=== PATIENT | male | born 1955 | race Caucasian/White ===

== ENCOUNTER 2024-02-09 19:39 | Outpatient (OUT) | payer MEDICARE, SELFPAY | END 2024-02-09 19:40 | disposition home or self-care (01) | LOC: SLEEP 19:39 | PROVIDERS: PCP Psychiatry & Neurology Neurology; Visit Provider Psychiatry & Neurology Neurology | DX: G47.33 Obstructive sleep apnea (adult) (pediatric) (principal) ==

== ENCOUNTER 2024-02-10 15:00 | Outpatient (OUT) | payer MEDICARE, OTHER, SELFPAY ==
--- OUTSIDE RECORDS SUMMARY | 2024-02-11 14:12 | XMS_ITS | CCD ---
Author Organization [facility] Care Team Providers Care Custom Dressmaker Name Role Phone APLING, ERMA Unavailable Unavailable APLING, ERMA Unavailable Unavailable ANGIE MORAN Unavailable Unavailable UNKNOWN, PROVIDER Unavailable Unavailable ANGIE MORAN Unavailable Unavailable UNKNOWN, PROVIDER Unavailable Unavailable ANGIE MORAN Unavailable Unavailable Angie Moran Unavailable Unavailable Unavailable Angie Moran Unavailable Carissa Angeles Unavailable Juan Pina Unavailable MD Angie Moran Primary Care Provider [phone] MD Angie Moran Attending Provider MD Juan Pina Attending Provider [phone] MD Anish Garcia Attending Provider Karthik Shen Ferrer Attending Provider [phone] Kaylynn Lehman Unavailable MD Angie Moran Primary Care Provider TRIPP Lehman Attending Provider MD Angie Moran Primary Care Provider [phone] TRIPP Maharaj Attending Provider TRIPP Lehman Attending Provider MD Angie Moran Primary Care Provider MD Angie Moran Attending Provider [phone] Angie Moran MD Primary Care Provide r BIANKA DAMON Attending Unavailable BIANKA DAMON Referring Unavailable Dr. Angie Moran Primary Care Lacie vailable THAIS, NAIM Attending Unavailable THAIS, NAIM Referring Unavailable Dr. Angie Moran Primary Care Lacie vailable ILENE ROBLES Attending Unavailable ILENE ROBLES Referring Unavailable Dr. Angie Moran Primary Care Lacie vailable THAIS, BIANKA Attending Unavailable THAIS, NAIM Referring Unavailable Dr. Angie Moran Primary Care Lacie vailable Dean TODD, Angie [facility] Provide r Unavailable Anne Cowan Unavailable Angie Moran MD Primary Care Provider Bianka Damon MD Unavailable ANGIE MORAN Primary Care Unavailable Angie Moran MD Primary Care Provider Un available Ilene Robles MD Unavailable BIANKA DAMON Attending Unavailable ANGIE MORAN Primary Care Unavailable THAIS NAHANNA Earl Attending Unavailable ANGIE MORAN Primary Care Unavailable ILENE ROBLES Attending Unavailable ANGIE MORAN Primary Care Unavailable MD Angie Moran Primary Care Provider MD Ken Rocha II Attending Provider [phone] MD Angie Moran Primary Care Provider MD Angie Moran Attending Provider Angie Moran Attending Unavailable Angie Moran Primary Care Unavailable Angie Moran Admitting Unavailable Ken Rocha II Attending UnavailKen Javed II Admitting UnavailAngie Duque Primary Care Unavailable Angie Moran Primary Care Unavailable Angie Moran Admitting Unavailable Angie Moran Attending Unavailable MELITA ELLIOTT Attending Unavailable Medications Current Medications Medication Drug Class(es) Dates Sig (Normalized) Sig (Original) 0.25 MG, 0.5 MG Dose 3 ML semaglutide 0.68 MG/ML Pen Injector [Ozempic] (1 source) Start: 03-23-2023 Ozempic (0.25 or 0.5 MG/DOSE) 2 MG/3ML 0.25 MG Subcutaneous WEEKLY for 30 Mar, Active [id number] 200 actuat albuterol 0.09 mg/actuat metered dose inhaler (20 sources) beta2-Adrenergic Agonist Start: 08-27-2023 take 2 puff(s) by inhalation every four hours as needed Albuterol Sulfate (Ventolin Hfa) 90 mcg/actuation HFA aerosol inhaler Active INHALATION August 27, 2023 12:00am FreeTextSig: INHALE 2 PUFFS EVERY 4 HOURS NEEDED; Note: Source Status: Taking; Refills: 11; Provider: Dean Crenshaw take 1-2 puff(s) by inhalation every six hours albuterol 90 mcg/actuation inhaler Inhal e 1-2 puffs every 6 hours if needed. Active take 2 puff(s) by in halation every four hours as needed Ventolin HFA 108 (90 Base) MCG/ACT INHAL E 2 PUFFS EVERY 4 HOURS NEEDED for 30 days Active take 1-2 puff(s) by inhalation every four to six hours as needed Albuterol Sulfate HFA 108 (90 Base) MCG/ ACT Inhalation Aerosol Solution INHALE 1 TO 2 PUFFS EVERY 4 TO 6 HOURS NEEDED. Quantity: 0 Refills: 0 Ordered: 27-Feb-2021 DO Active take 2 puff(s) by mo ut every four hours as needed Albuterol Sulfate HFA 108 (90 Base) MCG/ ACT INHALE 2 PUFFS BY MOUTH EVERY 4 HOURS NEEDED Active take 2 puff(s) by mo uth every four hours as needed Albuterol Sulfate HFA 108 (90 Base) MCG/ ACT INHALE 2 PUFFS BY MOUTH EVERY 4 HOURS NEEDED Active take 1-2 puff(s) by inhalation every four to six hours as needed Albuterol Sulfate HFA 108 (90 Base) MCG/ ACT Inhalation Aerosol Solution INHALE 1 TO 2 PUFFS EVERY 4 TO 6 HOURS NEEDED. Quantity: 0 Refills: 0 Ordered: 27-Feb-2021 DO Active amiodarone hydrochloride 100 mg oral tablet (20 sources) Antiarrhythmic take 1 tablet by ree th every twenty-four hours Amiodarone HCl 100 MG 1 tablet Orally Once a day Active take 1 tablet by ree th every twenty-four hours Amiodarone HCl 200 MG 1 tablet Orally Once a day Active amLODIPine 5 mg oral tablet (20 sources) Dihydropyridine Calcium Channel Patti Start: 12-10-2023 take 5 mg by mouth once daily Amlodipine Active 5 MG PO Daily December 10, 2023 12:00am Start: 09-19-2022 End: 08-27-2023 take 5 mg by mouth once daily Amlodipine Discontinued 5 MG PO Daily June 25, 2023 1:00am August 27, 2023 1:49pm B Complex (1 source) B Complex Active Calcium + D3 600-800 MG-UNIT (20 sources) take 600-800 tablets by mouth once daily Calcium + D3 600-800 MG-UNIT 1 tablet with a meal Orally Once a day Active Cerefolin NAC 6-90.314-2-600 MG (9 sources) take 1 tablet by mouth once daily Cerefolin NAC 6-90.314-2-600 MG 1 tablet Orally Once a day 90 mg Active ciprofloxacin 500 mg oral tablet (5 sources) Quinolone Antimicrobial Start: 02-11-20 take 1 tablet by mouth every twelve hours Ciprofloxacin HCl 500 MG 1 tablet Orally every 12 hrs for 10 day(s) Jan, Active clotrimazole 10 mg/ml topical cream (20 sources) Azole Antifungal Clotrimazole 1 % APPLY TO AFFECTED AREA TWICE DAILY for 28 Active Clotrimazole 1 % 1 application to affected area Externally Twice a day for 28 days Active Clotrimazole 1 % 1 application to affected area Externally Twice a day for 28 Active CPAP Machine (20 sources) CPAP Machine Act kristina CPAP Mask and supplies (19 sources) Start: 01-14-20 CPAP Mask and supplies Dec, Active diclofenac sodium 0.01 mg/mg topical gel (5 sources) Nonsteroidal Anti-inflammatory Drug Start: 08-27-19 Diclofenac Sodium Active 2 GM TOPICAL .4-5 times a day 05 19August 27, 2023 12:00am esomeprazole 40 mg delayed release oral capsule (20 sources) Proton Pump Inhibitor Start: 08-10-19 take 1 capsule by mouth once daily Esomeprazole Magnesium (Nexium) 40 mg Capsule,Delayed Release(Dr/Ec) Active 40 MG PO Daily August 09, 2017 12:00am ezetimibe 10 mg / simvastatin 20 mg oral tablet (20 sources) HMG-CoA Reductase Inhibitor, Dietary Cholesterol Absorption Inhibitor Start: 11-09-19 take 1 tablet by mouth once daily ezetimibe-simvastati n (Vytorin) 10-20 mg tablet Take 1 tablet by mouth once daily. 11/08/2021 Active Start: 08-09-2017 take 1 tablet by ree th once daily Ezetimibe-Simvastatin (Vytorin 10-80) 10-80 mg Tablet Active 1 TAB PO Daily August 09, 2017 12:00am Vytorin 10/80 TA KE 1 TABLET DAILY Active Fish Oils (20 sources) take 1 capsule by mouth once daily Fish Oil 1000 MG 1 capsule Orally Once a day Active hydroCHLOROthiazide 25 mg oral tablet (20 sources) Thiazide Diuretic Start: 2019 End: 2023 take 25 mg by mouth once daily Hydrochlorothiazide Active 25 MG PO Daily 90 90 December 10, 2023 2:59pm 24 hr isosorbide mononitrate 60 mg extended release oral tablet (20 sources) Nitrate Vasodilator Start: 2023 take 1 tablet by mouth once daily isosorbide mononitrate ER (Imdur) 60 mg 24 hr tablet Indications: Primary hypertension Take 1 tablet (60 mg) by mouth once daily. 90 tablet 3 08/14/2023 Active Start: 08-09-2017 End: 08-14-2023 take 60 mg by mouth once daily Isosorbide Mononitrate Active 60 MG PO Daily August 09, 2017 12:00am levothyroxine sodium 0.112 mg oral tablet (20 sources) l-Thyroxine Start: 08-27-2023 take 1 tablet by mouth once daily in the morning Levothyroxine Active MCG PO August 27, 2023 12:00am FreeTextSig: TAKE 1 TABLET BY MOUTH EVERY DAY IN THE MORNING ON EMPTY STOMACH; Note: Source Status: Taking; Provider: Dean Stallworth ( ) Start: 07-15-2021 take 1 tablet by ree th once daily in the morning Levothyroxine Sodium 112 MCG 1 tablet in the morning on an empty stomach Orally Once a day for 30 day(s) Jun, Active Start: 06-07-2021 Levothyroxine Sodium 100 MCG 1 tablet every morning on an empty stomach Orally Once a day for 90 days May, Active Start: 01-24-2021 take 1 tablet by ree th once daily in the morning Levothyroxine Sodium 75 MCG 1 tablet in the morning on an empty stomach Orally Once a day Jan, Active Start: 08-10-2020 take 1 tablet by ree th once daily in the morning Synthroid 50 MCG 1 tablet in the morning on an empty stomach Orally Once a day Jul, Not-Taking take 1 tablet by ree th once daily levothyroxine (Synthroid, Levoxyl) 112 mcg tablet Take 1 tablet (112 mcg) by mouth once daily. Active take 1 tablet by ree th once daily Levothyroxine Sodium 75 MCG Oral Tablet TAKE 1 TABLET DAILY. Quantity: 0 Refills: 0 Ordered: 01-Mar-2021 DO Active lisinopril 20 mg oral tablet (20 sources) Angiotensin Converting Enzyme Inhibitor Start: 08-27-2023 End: 12-10-2023 take 1 tablet by mouth once daily Lisinopril Active 20 MG PO Daily 90 90 December 10, 2023 2:58pm FreeTextSi tablet Orally Once a day; Note: Source Status: Taking; Provider: dr. mix Start: 09-02-2022 take 1 tablet by ree th once daily Lisinopril 20 MG Oral Tablet TAKE 1 TABLET DAILY. Quantity: 90 Refills: 3 Ordered: 09-Dec-2022 Bianka Damon MD Start : 02-Sep-2022 Active Increased to 20mg, patient will use up his 10mg tablets first Start: 09-02-2022 take 1 tablet by ree th once daily Lisinopril 10 MG Oral Tablet TAKE 1 TABLET DAILY. Quantity: 90 Refills: 3 Ordered: 19-Sep-2022 Bianka Damon MD Start : 02-Sep-2022 Active Will continue this script Lmefol [id number] (Cerefolin Nac (Algal Oil)) 6 mg-600 mg- 2 mg-90.314 mg tablet (5 sources) Start: 08-27-2023 Lmefol [id number]-Algal (Cerefolin Nac (Algal Oil)) 6 mg-600 mg- 2 mg-90.314 mg tablet Active TAB PO August 27, 2023 12:00am Magnesium (9 sources) take 1 tablet by mouth twice daily Magnesium 400 MG 1 tab(s) Orally Twice a day Active magnesium oxide 400 mg oral tablet (20 sources) Start: 08-27-2023 take 1 tablet by mouth twice daily Magnesium Oxide Active 400 MG PO Twice daily August 27, 2023 12:00am FreeTextSi tab(s) Orally Twice a day; Note: Source Status: Taking; Provider: Dean Stallworth ( ) take 1 tablet by mouth twice kylie ly magnesium oxide (Mag-Ox) 400 mg (241.3 mg magnesium) tablet Take 1 tablet (400 mg) by mouth 2 times a day. Active take 1 tablet by mouth twice kylie ly Magnesium Oxide -Mg Supplement 400 (240 Mg) MG Oral Tablet Take 1 tablet twice daily Quantity: 180 Refills: 3 Ordered: 08-Aug-2022 Ilene Robles MD Active Increased to BID dosing. Discontinuing Amiodarone please take 1 tablet by mouth once blade y Magnesium Oxide 400 (240 Mg) MG Oral Tablet Take 1 tablet daily Quantity: 0 Refills: 0 Ordered: 27-Feb-2021 DO Active meloxicam 15 mg oral tablet (8 sources) Nonsteroidal Anti-inflammatory Drug Start: 11-23-2023 take 1 tablet by mouth once daily Meloxicam Active 0 .ROUTE .COMPLEX November 23, 2023 8:54am TAKE 1 TABLET BY MOUTH EVERY DAY Start: 08-27-2023 End: 11-23-2023 take 15 mg by mouth once daily Meloxicam Discontinued 15 MG PO daily August 27, 2023 12:00am November 23, 2023 8:55am 24 hr metoprolol succinate 25 mg extended release oral tablet (20 sources) beta-Adrenergic Patti Start: 09-18-2023 take 25 mg by mouth at bedtime Metoprolol Succinate Active 25 MG PO Bedtime 90 90 September 18, 2023 10:06am Start: 08-14-2023 take 1 tablet by ree th once daily at bedtime metoprolol succinate XL (Toprol-XL) 25 mg 24 hr tablet Indications: Longstanding persistent atrial fibrillation (Multi) Take 1 tablet (25 mg) by mouth once daily at bedtime. 90 tablet 3 08/14/2023 Active Start: 10-18-2021 End: 09-18-2023 take 25 mg by mouth at bedtime Metoprolol Succinate Di scontinued 25 MG PO Bedtime January 07, 2022 12:00am September 18, 2023 10:06am Start: 10-18-2021 take 25 mg by mouth at bedtime Metoprolol Succinate Active 25 MG PO Bedtime January 06, 2022 11:00pm nitroglycerin 0.4 mg sublingual tablet (20 sources) Nitrate Vasodilator Start: 08-09-2017 End: 12-10-2023 Nitroglycerin (Nitrostat) 0.4 mg tablet, sublingual Active 0.4 MG SUBLINGUAL As Directed December 10, 2023 2:59pm Nitroglycerin 0. 4 MG 1 tablet under the tongue every 5 minutes, up to 3 doses, if not better call 911 Sublingual PRN Active [place] 5-Jpt-Gpe-Fish Oil (Fish Oil) 1,000 mg (120 mg-180 mg) Capsule (15 sources) Start: 08-09-2017 take 1 capsule by mouth once daily [place] 5-Ojl-Huf-Fish Oil (Fish Oil) 1,000 mg (120 mg-180 mg) Capsule Active 1000 MG PO Daily August 08, 2017 11:00pm Start: 08-09-2017 take 1 capsule by [facility] once daily [place] 6-Xri-Hfu-Fish Oil (Fish Oil) 1,000 mg (120 mg-180 mg) Capsule Active 1000 MG PO Daily August 09, 2017 12:00am omega-3 fatty acids-fish oil (Fish OiL) 340-1,000 mg capsule (4 sources) take 1 capsule by [facility] once daily omega-3 fatty acids-fish oil (Fish OiL) 340-1,000 mg capsule Take 1 capsule by mouth once daily. Active take 1 capsule by mouth once kylie ly omega-3 fatty acids-fish oil (Fish OiL) 340-1,000 mg capsule Take 1 capsule by mouth once daily. 0 Active ozempic (0.25 or 0.5 mg/dose) 2 mg/3ml solution pen-injector (1 source) Start: 03-23-2023 Ozempic (0.25 or 0.5 MG/DOSE) 2 MG/3ML 0.25 MG Subcutaneous WEEKLY for Mar, Active rivaroxaban 20 mg oral tablet (20 sources) Factor Xa Inhibitor Start: 12-10-2023 take 1 tablet by mouth once daily Rivaroxaban (Xarelto) 20 mg tablet Active 20 MG PO Daily December 10, 2023 2:58pm Start: 08-14-2023 take 1 tablet by ree th once daily rivaroxaban (Xarelto) 20 mg tablet Indications: Longstanding persistent atrial fibrillation (Multi) Take 1 tablet (20 mg) by mouth once daily. 90 tablet 3 08/14/2023 Active Start: 12-31-2017 End: 12-10-2023 take 1 tablet by mouth once daily Rivaroxaban (Xarelto) 20 mg Tablet Discontinued 20 MG PO Daily December 31, 2017 12:00am December 10, 2023 2:59pm sulfamethoxazole 800 mg / trimethoprim 160 mg oral tablet (10 sources) Dihydrofolate Reductase Inhibitor Antibacterial, Sulfonamide Antimicrobial Start: 01-10-2022 take 1 tablet by mouth every twelve hours Sulfamethoxazole-Trimethoprim 800-160 MG 1 tablet Orally Twice a day for 7 day(s) Dec, Active Vitamin C 1000 MG (20 sources) take 1 tablet by mouth once daily Vitamin C 1000 MG 1 tablet Orally Once a day Active Vitamin D 95397 (20 sources) Start: 07-23-2009 Vitamin D 98665 1 capsule Orally Once a week patient is out Jul, Active Completed/Discontinued Medications Medication Drug Class(es) Dates Sig (Normalized) Sig (Original) amLODIPine 10 mg / benazepril hydrochloride 20 mg oral capsule (20 sources) Dihydropyridine Calcium Channel Patti, Angiotensin Converting Enzyme Inhibitor Start: 08-09-2017 End: 12-10-2023 take 1 tablet by mouth once daily Amlodipine-Benaze pril (Lotrel) 10-20 mg Capsule Discontinued 1 TAB PO Daily August 09, 2017 12:00am December 10, 2023 2:49pm ascorbic acid 1000 mg extended release oral tablet (20 sources) Vitamin C Start: 01-01-2018 End: 11-07-2019 take 1 tablet by mouth once daily Ascorbic Acid (Vitamin C) (Vitamin C) 1,000 mg Tablet Extended Release Discontinued 1 TAB PO Daily January 01, 2018 12:00am November 07, 2019 1:59pm take 1 tablet by ree th every twenty-four hours Vitamin C 1000 MG 1 tablet Orally Once a day Active aspirin 81 mg chewable tablet (20 sources) Platelet Aggregation Inhibitor, Nonsteroidal Anti-inflammatory Drug Start: 11-07-2019 End: 08-27-2023 take 1 tablet by mouth two times weekly Aspirin (Aspirin Childrens) 81 mg Tablet,Chewable Discontinued 81 MG PO Twice a Week November 07, 2019 12:00am August 27, 2023 1:47pm Start: 08-09-2017 End: 01-01-2018 take 81 mg by mouth once daily Aspirin Discontinued 81 MG PO Daily August 09, 2017 12:00am January 01, 2018 8:17am calcium carbonate 1500 mg / cholecalciferol 200 unt oral tablet (15 sources) Vitamin D Start: 01-01-2018 End: 11-07-2019 take 1 tablet by mouth once daily Calcium Carbonate-Vitamin D3 (Calcium 600 With Vitamin D3) 600 mg(1,500mg) -200 unit Tablet Discontinued 1 TAB PO Daily January 01, 2018 12:00am November 07, 2019 2:00pm clopidogrel 75 mg oral tablet (15 sources) [id number] Platelet Inhibitor Start: 08-09-2017 End: 01-01-2018 take 75 mg by mouth once daily Clopidogrel Discontinued 75 MG PO Daily August 09, 2017 12:00am January 01, 2018 8:17am ergocalciferol 1.25 mg oral capsule (15 sources) Provitamin D2 Compound Start: 11-07-2019 End: 08-27-2023 take 1250 ug by mouth every week Ergocalciferol (Vitamin D2) Discontinued 1250 MCG PO every week November 07, 2019 12:00am August 27, 2023 1:47pm Fish Oil 1000 MG Oral Capsule Delayed Release (17 sources) take 1 capsule by mouth once daily Fish Oil 1000 MG Oral Capsule Delayed Release TAKE 1 CAPSULE Daily Quantity: 0 Refills: 0 Ordered: 27-Feb-2021 DO Active naproxen sodium 220 mg oral tablet (20 sources) Nonsteroidal Anti-inflammatory Drug Start: 08-27-2023 End: 12-10-2023 take 1 tablet by mouth once daily at mealtime as needed Naproxen Sodium Discontinued MG PO August 27, 2023 12:00am December 10, 2023 2:51pm FreeTextSi tablet with food or milk as needed Orally once a day; Note: Source Status: Taking; Provider: Otis Kirkpatrick take 2 tablets by [facility] once daily at mealtime as needed Aleve 220 MG 2 tablet with food or milk as needed Orally once a day Active oxyCODONE hydrochloride 5 mg oral tablet (13 sources) Opioid Agonist Start: 01-07-2022 End: 08-27-2023 take 10 mg by mouth every four hours Oxycodone Discontinued 10 MG PO Every 4 hours 30 January 07, 2022 August 27, 2023 1:48pm 24 hr propranolol hydrochloride 60 mg extended release oral capsule (20 sources) beta-Adrenergi c Patti Start: 08-09-2017 End: 01-07-2022 take 1 capsule by mouth once daily Propranolol (Inderal La) 60 mg Capsule,Extended Release 24 Hr Discontinued 60 MG PO Daily August 09, 2017 12:00am January 07, 2022 11:06am take 1 tablet by mouth once blade y Inderal LA 60 MG 1 tablet Orally once a day Not-Taking triamcinolone acetonide 1 mg /ml topical cream (20 sources) Corticosteroid Triamcinolone Ac etonide 0.1 % 1 application to affected area Externally Twice a day for 30 Not-Taking/PRN Triamcinolone Ac etonide 0.1 % 1 application to affected area Externally Twice a day for 30 Not-Taking Problems Active Problems Problem Classification Problem Date Documented Date Episodic/Chronic Administrative/social admission (20 sources) Follow-up status; Translations: [Other specified counseling] Onset: 08-14-2023 Resolved: 03-01-2021 08-14-2023 Episodic Anxiety disorders (20 sources) Generalized anxiety disorder; Translations: [Generalized anxiety disorder] Onset: 09-10-2009 Resolved: 11-05-2021 Chronic Asthma (20 sources) Asthma; Translations: [Unspecified asthma, uncomplicated] Onset: 04-04-2021 Resolved: 11-05-2021 Chronic Cardiac dysrhythmias (20 sources) Longstanding persistent atrial fibrillation; Translations: [Atrial fibrillation] Onset: 04-04-2021 Resolved: 03-03-2023 Chronic Cardiac dysrhythmias (20 sources) Bradycardia; Translations: [Other specified cardiac dysrhythmias] Onset: 12-28-2022 12-28-2022 Episodic Cardiac dysrhythmias (1 source) Cardiac dysrhythmias Onset: 02-15-2018 Coronary atherosclerosis and other heart disease (20 sources) Atherosclerotic heart disease of robinson coronary artery without angina pectoris; Translations: [History of myocardial infarction] Onset: 02-15-2018 Resolved: 11-05-2021 Chronic Diabetes mellitus without complication (8 sources) Impaired fasting glycemia; Translations: [Impaired fasting glucose] Episodic Disorders of lipid metabolism (20 sources) Hyperlipidemia; Translations: [Other and unspecified hyperlipidemia] Onset: 12-17-2020 Resolved: 11-05-2021 Chronic Esophageal disorders (20 sources) Gastroesophageal reflux disease; Translations: [Gastro-esophageal reflux disease without esophagitis] Onset: 12-17-2020 Resolved: 11-05-2021 Chronic Essential hypertension (20 sources) Hypertensive disorder; Translations: [Unspecified essential hypertension] Onset: 12-17-2020 Resolved: 11-05-2021 Chronic Essential hypertension (1 source) Essential hypertension Onset: 02-15-2018 Immunizations and screening for infectious disease (4 sources) Encounter for immunization Onset: 03-08-2021 Resolved: 09-05-2021 Episodic Mood disorders (4 sources) Depressive disorder; Translations: [Depression] Onset: 09-10-2009 03-03-2023 Chronic Nutritional deficiencies (20 sources) Vitamin D deficiency; Translations: [Vitamin D deficiency, unspecified] 07-20-2023 Chronic Osteoarthritis (16 sources) Osteoarthritis; Translations: [Unspecified osteoarthritis, unspecified site] 07-20-2023 Chronic Other aftercare (20 sources) Drug therapy finding; Translations: [Long-term (current) use of other medications] Onset: 12-28-2022 03-03-2023 Episodic Other diseases of veins and lymphatics (11 sources) Lymphedema; Translations: [Lymphedema, not elsewhere classified] Chronic Other diseases of veins and lymphatics (1 source) Lymphedema, not elsewhere classified Chronic Other diseases of veins and lymphatics (7 sources) Chronic peripheral venous hypertension; Translations: [Chronic venous hypertension (idiopathic) without complications of bilateral lower extremity] Chronic Other diseases of veins and lymphatics (1 source) Chronic venous hypertension (idiopathic) without complications of bilateral lower extremity Chronic Other injuries and conditions due to external causes (15 sources) Contusion; Translations: [Other injury of unspecified body region, initial encounter] 08-09-2017 Episodic Other nutritional; endocrine; and metabolic disorders (20 sources) Body mass index 40+ - severely obese; Translations: [Morbid obesity] Onset: 12-28-2022 03-03-2023 Chronic Other nutritional; endocrine; and metabolic disorders (20 sources) Obesity; Translations: [Obesity, unspecified] 07-20-2023 Chronic Other nutritional; endocrine; and metabolic disorders (6 sources) Obesity, unspecified Onset: 07-15-2021 Resolved: 11-05-2021 Chronic Other nutritional; endocrine; and metabolic disorders (1 source) Body mass index (BMI) 45.0-49.9, adult Chronic Other nutritional; endocrine; and metabolic disorders (2 sources) Morbid obesity; Translations: [Morbid (severe) obesity due to excess calories] Chronic Other nutritional; endocrine; and metabolic disorders (4 sources) Morbid (severe) obesity due to excess calories; Translations: [Morbid (severe) obesity due to excess calories (Multi)] Onset: 12-28-2022 Chronic Other nutritional; endocrine; and metabolic disorders (6 sources) Body mass index (BMI) 40.0-44.9, adult; Translations: [Body Mass Index 40.0-44.9, adult] Onset: 12-28-2022 Chronic Other screening for suspected conditions (not mental disorders or infectious disease) (20 sources) Thyroid hormone tests abnormal; Translations: [Other abnormal blood chemistry] Onset: 12-11-2023 Resolved: 03-01-2021 12-10-2023 Episodic Residual codes; unclassified (20 sources) Obstructive sleep apnea syndrome; Translations: [Obstructive sleep apnea (adult) (pediatric)] Chronic Residual codes; unclassified (6 sources) Obstructive sleep apnea (adult) (pediatric) Onset: 07-15-2021 Resolved: 11-05-2021 Chronic Residual codes; unclassified (6 sources) Sleep apnea; Translations: [Sleep apnea, unspecified] 07-20-2023 Chronic Residual codes; unclassified (2 sources) Sleep apnea, unspecified; Translations: [Unspecified sleep apnea] 07-20-2023 Chronic Residual codes; unclassified (2 sources) Localized edema Episodic Residual codes; unclassified (7 sources) Never smoked tobacco; Translations: [Other specified health status] Onset: 02-06-2023 03-03-2023 Episodic Skin and subcutaneous tissue infections (2 sources) Local infection of the skin and subcutaneous tissue, unspecified Onset: 01-02-2022 Resolved: 01-02-2022 Episodic Superficial injury; contusion (6 sources) Contusion of unspecified lower leg, initial encounter; Translations: [Contusion of right lower leg, initial encounter] Onset: 11-05-2021 Resolved: 01-02-2022 Episodic Thyroid disorders (20 sources) Hypothyroidism caused by drug; 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] Onset: 12-17-2020 Resolved: 11-05-2021 Chronic Unclassified (2 sources) 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 / I25.10(ICD-9) Onset: 02-15-2018 Unclassified (1 source) Pure hypercholesterolemia, unspecified / E78.00(ICD-9) Onset: 02-15-2018 Unclassified (1 source) Old myocardial infarction / I25.2(ICD-9) Onset: 02-15-2018 Unclassified (1 source) Family hx of ischem heart dis and oth dis of the circ sys / Z82.49(ICD-9) Onset: 02-15-2018 Unclassified (1 source) Coronary angioplasty status / Z98.61(ICD-9) Onset: 02-15-2018 Unclassified (4 sources) Longstanding persistent atrial fibrillation; Translations: [Longstanding persistent atrial fibrillation (Multi)] Onset: 12-28-2022 Unclassified (5 sources) Body mass index 40+ - severely obese; Translations: [Body mass index (BMI) greater than or equal to 40 in adult] 08-27-2023 Past or Other Problems Problem Classification Problem Date Documented Da te Episodic/Chronic Coronary atherosclerosis and other heart disease (2 sources) Coronary angioplasty status; Translations: [Coronary angioplasty status] Onset: 03-03-2023 Episodic Other aftercare (5 sources) Taking high risk medication; Translations: [Other intermediate (current) drug therapy] Onset: 12-28-2022 03-03-2023 Episodic Other aftercare (2 sources) Other intermediate (current) drug therapy; Translations: [Other intermediate (current) drug therapy] Onset: 12-28-2022 Episodic Other aftercare (2 sources) 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; 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] Onset: 12-28-2022 Episodic Other injuries and conditions due to external causes (1 source) Other injury of unspecified body region, initial encounter Onset: 08-05-2021 Resolved: 08-05-2021 Episodic Other lower respiratory disease (17 sources) History of pleural effusion; Translations: [Personal history of other diseases of respiratory system] Resolved: 03-01-2021 Episodic Other non-traumatic joint disorders (6 sources) Pain in right knee; Translations: [Pain in both knees] Onset: 08-27-2023 08-11-2023 Episodic Other non-traumatic joint disorders (1 source) Pain in left knee; Translations: [Pain in left knee] Onset: 08-27-2023 Episodic Poisoning by other medications and drugs (20 sources) 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; Translations: [Other iatrogenic hypothyroidism] Onset: 12-28-2022 12-28-2022 Episodic Residual codes; unclassified (2 sources) Other specified health status; Translations: [Other specified health status] Onset: 02-06-2023 Episodic Unclassified (9 sources) Never smoked tobacco; Translations: [Never a smoker] Results Test Name Value Interpretation Reference Range Facility Alanine aminotransferase [En zymatic activity/volume] in Serum or PlasmaOrdered By: Angie Moran on 12-11-2023 ALT [Catalytic activity/Vol] 23 U/L Normal 7-52 [facility] Comment on above: Performed By: #### T SH3, CMP, PSAS, LIPID, SCAN CBC #### [facility] [address] [place] [address] [place] Albumin [Mass/volume] in Ser um or Plasma by Bromocresol green (BCG) dye binding methoOrdered By: Angie Moran on 12-11-2023 Albumin BCG dye [Mass/Vol] 4.0 g/dL 3.5-5.7 [facility] Alkaline phosphatase [Enzyma tic activity/volume] in Serum or PlasmaOrdered By: Angie Moran on 12-11-2023 ALP [Catalytic activity/Vol] 89 U/L Normal 34-104 [facility] Comment on above: Performed By: #### T SH3, CMP, PSAS, LIPID, SCAN CBC #### [facility] [address] [place] [id number] [place] Aspartate aminotransferase [ Enzymatic activity/volume] in Serum or PlasmaOrdered By: Angie Moran on 12-11-2023 AST [Catalytic activity/Vol] 16 U/L Normal 13-39 [facility] Comment on above: Performed By: #### T SH3, CMP, PSAS, LIPID, SCAN CBC #### [address] Automated basophil %Ordered By: Angie Moran on 12-11-2023 Basophils/100 WBC (Bld) 0.7 % Normal . [facility] Comment on above: Performed By: #### T SH3, CMP, PSAS, LIPID, SCAN CBC #### [address] Automated basophil countOrde red By: Angie Moran on 12-11-2023 Basophils (Bld) [#/Vol] 0.1 10*3/uL Normal 0.0-0.2 [facility] Comment on above: Performed By: #### T SH3, CMP, PSAS, LIPID, SCAN CBC #### [address] Automated blood monocyte cou ntOrdered By: Angie Moran on 12-11-2023 Monocytes (Bld) [#/Vol] 0.8 10*3/uL Normal 0.0-0.8 [facility] Comment on above: Performed By: #### T SH3, CMP, PSAS, LIPID, SCAN CBC #### [address] Automated eosinophil %Ordere d By: Angie Moran on 12-11-2023 Eosinophils/100 WBC (Bld) 0.4 % Normal . [facility] Comment on above: Performed By: #### T SH3, CMP, PSAS, LIPID, SCAN CBC #### [address] Automated eosinophil countOr dered By: Angie Moran on 12-11-2023 Eosinophils (Bld) [#/Vol] 0.0 10*3/uL Normal 0.0-0.45 [facility] Comment on above: Performed By: #### T SH3, CMP, PSAS, LIPID, SCAN CBC #### [address] Automated monocyte %Ordered By: Angie Moran on 12-11-2023 Monocytes/100 WBC (Bld) 6.6 % Normal . [facility] Comment on above: Performed By: #### T SH3, CMP, PSAS, LIPID, SCAN CBC #### [facility] [address] Automated neutrophil %Ordere d By: Angie Moran on 12-11-2023 Neutrophils/100 WBC (Bld) 81.0 % Normal . [facility] Comment on above: Performed By: #### T SH3, CMP, PSAS, LIPID, SCAN CBC #### [facility] [address] Bilirubin.total [Mass/volume ] in Serum or PlasmaOrdered By: Angie Moran on 12-11-2023 Bilirubin [Mass/Vol] 0.9 mg/dL Normal 0.3-1.0 [facility] Comment on above: Performed By: #### T SH3, CMP, PSAS, LIPID, SCAN CBC #### [address] Esvin cells [Presence] in Blo od by Light microscopyOrdered By: Angie Moran on 12-11-2023 Esvin cells LM Ql (Bld) Slight [facility] Calcium [Mass/volume] in Ser um or PlasmaOrdered By: Angie Moran on 12-11-2023 Calcium [Mass/Vol] 9.0 mg/dL Normal 8.6-10.3 [facility] Comment on above: Performed By: #### T SH3, CMP, PSAS, LIPID, SCAN CBC #### [place] [address] [place] Carbon dioxide, total [Moles /volume] in Serum or PlasmaOrdered By: Angie Moran on 12-11-2023 CO2 [Moles/Vol] 27.5 mmol/L Normal 21.0-31.0 [facility] Comment on above: Performed By: #### T SH3, CMP, PSAS, LIPID, SCAN CBC #### [place] [address] [place] Chloride [Moles/volume] in S shira or PlasmaOrdered By: Angie Moran on 12-11-2023 Chloride [Moles/Vol] 105 mmol/L Normal 98-107 [facility] Comment on above: Performed By: #### T SH3, CMP, PSAS, LIPID, SCAN CBC #### [facility] [address] [place] [address] [place] Cholesterol [Mass/volume] in Serum or PlasmaOrdered By: Angie Moran on 12-11-2023 Cholesterol [Mass/Vol] 113 mg/dL Low 140-200 [facility] Comment on above: Chol less than 200 m g/dl low riskChol 201-239 mg/dl borderline riskChol 240 mg/dl and greater high risk Result Comment: Chol less than 200 mg/dl low risk Chol 201-239 mg/dl borderline risk Chol 240 mg/dl and greater high risk Performed By: #### T SH3, CMP, PSAS, LIPID, SCAN CBC #### [facility] [address] [place] [id number] [place] Cholesterol in LDL Calc [Mas s/Vol]Ordered By: Angie Moran on 12-11-2023 Cholesterol in LDL [Mass/Vol] 63 mg/dL 0-100 [facility] Comment on above: LDL ATP III CLASSIFI CATIONLDL less than 100 mg/dL OptimalLDL 100-129 mg/dL Near or above optimalLDL 130-159 mg/dL Borderline highLDL 160-189 mg/dL HighLDL greater than 189 mg/dL Very high Cholesterol in VLDL Calc [Ma ss/Vol]Ordered By: Angie Moran on 12-11-2023 Cholesterol in VLDL [Mass/Vol] 9 mg/dL [facility] Comprehensive Metabolic Pane john 12-11-2023 Albumin [Mass/Vol] 4.0 g/dL Normal 3.5-5.7 [facility] Comment on above: Performed By: #### T SH3, CMP, PSAS, LIPID, SCAN CBC #### [facility] [address] [place] [address] [place] GFR/1.73 sq M.predicted MDRD (S/P/Bld) [Vol rate/Area] mL/min/{1.73_m2} Normal [facility] Comment on above: Performed By: #### T SH3, CMP, PSAS, LIPID, SCAN CBC #### [facility] [address] [place] [address] [place] Creatinine [Mass/volume] in Serum or PlasmaOrdered By: Angie Moran on 12-11-2023 Creatinine [Mass/Vol] 1.15 mg/dL Normal 0.70-1.30 [facility] Comment on above: Performed By: #### T SH3, CMP, PSAS, LIPID, SCAN CBC #### [facility] [address] Erythrocyte distribution wid th [Ratio] by Automated countOrdered By: Angie Moran on 12-11-2023 Erythrocyte distribution width (RBC) [Ratio] 15.6 % High 12.0-14.8 [facility] Comment on above: Performed By: #### T SH3, CMP, PSAS, LIPID, SCAN CBC #### [facility] [address] Erythrocytes [#/volume] in B lood by Automated countOrdered By: Angie Moran on 12-11-2023 RBC (Bld) [#/Vol] 4.97 10*6/uL Normal 3.90-5.60 [facility] Comment on above: Performed By: #### T SH3, CMP, PSAS, LIPID, SCAN CBC #### [facility] [address] Glucose [Mass/volume] in Ser um or PlasmaOrdered By: Angie Moran on 12-11-2023 Glucose [Mass/Vol] 106 mg/dL High 70-100 [facility] Comment on above: ADA recommended refe rence rangeRandom Glucose Reference Range is dependent on time and content of last meal. Glucose of more than 200 mg/dL in a nonstressed, ambulatory subject supports the diagnosis of Diabetes Mellitus. Result Comment: [place] om Glucose Reference Range is dependent on time and content of last meal. Glucose of more than 200 mg/dL in a nonstressed, ambulatory subject supports the diagnosis of Diabetes Mellitus. ADA recommended reference range Performed By: #### T SH3, CMP, PSAS, LIPID, SCAN CBC #### [facility] [address] [place] [address] [place] Hematocrit [Volume Fraction] of Blood by Automated countOrdered By: Angie Moran on 12-11-2023 Hematocrit (Bld) [Volume fraction] 45.5 % Normal 38.8-50.0 [facility] Comment on above: Performed By: #### T SH3, CMP, PSAS, LIPID, SCAN CBC #### [facility] [address] Hemoglobin [Mass/volume] in BloodOrdered By: Angie Moran on 12-11-2023 Hemoglobin (Bld) [Mass/Vol] 15.3 g/dL Normal 13.0-17.0 [facility] Comment on above: Performed By: #### T SH3, CMP, PSAS, LIPID, SCAN CBC #### [facility] [address] Leukocytes [#/volume] correc viet for nucleated erythrocytes in Blood by Automated counOrdered By: Angie Moran on 12-11-2023 WBC corrected for nucl RBC Auto (Bld) [#/Vol] 12.4 10*3/uL High 4.1-10.5 [facility] Leukocytes [#/volume] in Blo od by Automated countOrdered By: Angie Moran on 12-11-2023 WBC (Bld) [#/Vol] 12.4 10*3/uL High 4.1-10.5 [facility] Comment on above: Performed By: #### T SH3, CMP, PSAS, LIPID, SCAN CBC #### [facility] [address] [place] [address] Lipid Panelon 12-11-2023 LDL Cholesterol,Calculate d 63 mg/dL Normal 0-100 [facility] Comment on above: Result Comment: LDL ATP III CLASSIFICATION LDL less than 100 mg/dL Optimal LDL 100-129 mg/dL Near or above optimal LDL 130-159 mg/dL Borderline high LDL 160-189 mg/dL High LDL greater than 189 mg/dL Very high Performed By: #### T SH3, CMP, PSAS, LIPID, SCAN CBC #### [facility] [address] [place] [address] Triglyceride w/Reflex 46 mg/dL Normal 0-149 [facility] Comment on above: Result Comment: TRIG ATP III CLASSIFICATION TRIG less than 150 mg/dL Normal TRIG 150-199 mg/dL Borderline high TRIG 200-500 mg/dL High TRIG greater than 500 mg/dL Very high Standard traceable to the Center for Disease Conrtrol and Prevention (CDC) test method. Performed By: #### T SH3, CMP, PSAS, LIPID, SCAN CBC #### [address] VLDL CHOLESTEROL 9 mg/dL Normal [facility] Comment on above: Performed By: #### T SH3, CMP, PSAS, LIPID, SCAN CBC #### [facility] [address] Lymphocytes [#/volume] in Bl ood by Automated countOrdered By: Angie Moran on 12-11-2023 Lymphocytes (Bld) [#/Vol] 1.4 10*3/uL Normal 1.00-4.8 [facility] Comment on above: Performed By: #### T SH3, CMP, PSAS, LIPID, SCAN CBC #### [address] Lymphocytes/100 leukocytes i n Blood by Automated countOrdered By: Angie Moran on 12-11-2023 Lymphocytes/100 WBC (Bld) 11.3 % Normal . [facility] Comment on above: Performed By: #### T SH3, CMP, PSAS, LIPID, SCAN CBC #### [address] MCH [Entitic mass] by Automa viet countOrdered By: Angie Moran on 12-11-2023 MCH (RBC) [Entitic mass] 30.8 pg Normal 27.5-35.2 [facility] Comment on above: Performed By: #### T SH3, CMP, PSAS, LIPID, SCAN CBC #### [address] MCHC Auto (RBC) [Mass/Vol]Or dered By: Angie Moran on 12-11-2023 MCHC (RBC) [Mass/Vol] 33.7 g/dL 32.5-35.6 [facility] MCV [Entitic volume] by Auto mated countOrdered By: Angie Moran on 12-11-2023 MCV (RBC) [Entitic vol] 91.5 fL Normal 83.5-101 [facility] Comment on above: Performed By: #### T SH3, CMP, PSAS, LIPID, SCAN CBC #### [facility] [address] Neutrophils [#/volume] in Bl ood by Automated countOrdered By: Angie Moran on 12-11-2023 Neutrophils (Bld) [#/Vol] 10.1 10*3/uL High 1.8-7.7 [facility] Comment on above: Performed By: #### T SH3, CMP, PSAS, LIPID, SCAN CBC #### [facility] [address] No Panel InformationOrdered By: Angie Moran on 12-11-2023 Estimated GFR (CKD-EPI) > 60.0 mL/Min [facility] Creatinine Clearance (Chem N/A [facility] Nucleated erythrocytes [Pres ence] in Blood by Automated countOrdered By: Angie Moran on 12-11-2023 Nucleated RBC Auto Ql (Bld) 0.1 /100{WBC} 0-0.5 [facility] Ovalocyte detectionOrdered B y: Angie Moran on 12-11-2023 Ovalocytes LM Ql (Bld) Slight [facility] PSA Screen (Yearly Only)on 0 12-11-2023 PSA Screen (Yearly Only) 0.770 ng/mL Normal 0.000-4.00 0 [facility] Comment on above: Result Comment: Seri al tumor marker results determined by assays using different manufacturers or methods may not be comparable. [facility] microfilm mounter and method: [employer] DXI, CHEMILUMINESCENT IMMUNOASSAY. PERFORMED BY: [place] [address] PATHOLOGIST BEET END SUPERVISOR ADRIANNE BROWN M.D. Performed By: #### T SH3, CMP, PSAS, LIPID, SCAN CBC #### [facility] [address] [place] [address] Platelet adequacy [Presence] in Blood by Light microscopyOrdered By: Angie Moran on 12-11-2023 Platelets LM Ql (Bld) Normal Normal [facility] Platelet mean volume [Entiti c volume] in Blood by Automated countOrdered By: Angie Moran on 12-11-2023 Platelet mean volume (Bld) [Entitic vol] 8.4 fL Normal 6.6-10.1 [facility] Comment on above: Performed By: #### T SH3, CMP, PSAS, LIPID, SCAN CBC #### [facility] [address] Platelet morphology finding [Identifier] in BloodOrdered By: Angie Moran on 12-11-2023 Platelet morphology finding Nom (Bld) Normal Normal [facility] Platelets [#/volume] in Bloo d by Automated countOrdered By: Angie Moran on 12-11-2023 Platelets (Bld) [#/Vol] 270 10*3/uL Normal 150-450 [facility] Comment on above: Performed By: #### T SH3, CMP, PSAS, LIPID, SCAN CBC #### [address] Poikilocytosis [Presence] in Blood by Light microscopyOrdered By: Angie Moran on 12-11-2023 Poikilocytosis LM Ql (Bld) [facility] Polychromasia [Presence] in Blood by Light microscopyOrdered By: Angie Moran on 12-11-2023 Polychromasia LM Ql (Bld) [facility] Potassium [Moles/volume] in Serum or PlasmaOrdered By: Angie Moran on 12-11-2023 Potassium [Moles/Vol] 4.5 mmol/L Normal 3.5-5.1 [facility] Comment on above: Performed By: #### T SH3, CMP, PSAS, LIPID, SCAN CBC #### [facility] [address] [place] [address] Prostate specific Ag [Mass/v olume] in Serum or PlasmaOrdered By: Angie Moran on 12-11-2023 Prostate specific Ag [Mass/Vol] 0.770 ng/mL 0.000-4.00 0 [facility] Comment on above: Serial tumor marker results determined by assays using different manufacturers or methods may not be comparable.[facility] microfilm mounter and method:[employer] DXI, CHEMILUMINESCENT IMMUNOASSAY. Protein [Mass/volume] in Ser um or PlasmaOrdered By: Angie Dean on 12-11-2023 Protein [Mass/Vol] 6.2 g/dL Low 6.4-8.9 [facility] Comment on above: Performed By: #### T SH3, CMP, PSAS, LIPID, SCAN CBC #### [address] RBC morphologyOrdered By: Mary Moran on 12-11-2023 RBC morphology finding Nom (Bld) N/A [facility] Scan and CBCon 12-11-2023 Crenated RBC Slight Normal [facility] Comment on above: Performed By: #### T SH3, CMP, PSAS, LIPID, SCAN CBC #### [address] Mean Corpuscular HGB Conc 33.7 g/dL Normal 32.5-35.6 [facility] Comment on above: Performed By: #### T SH3, CMP, PSAS, LIPID, SCAN CBC #### [address] NRBC% 0.1 /100{WBC} Normal 0-0.5 [facility] Comment on above: Performed By: #### T SH3, CMP, PSAS, LIPID, SCAN CBC #### [address] Ovalocytes Slight Normal [facility] Comment on above: Performed By: #### T SH3, CMP, PSAS, LIPID, SCAN CBC #### [address] Platelet Estimate Normal Normal Normal [facility] Comment on above: Performed By: #### T SH3, CMP, PSAS, LIPID, SCAN CBC #### [address] Platelet Morphology Normal Normal Normal [facility] Comment on above: Result Comment: PERF ORMED BY: [place] [address] PATHOLOGIST BEET END SUPERVISOR ADRIANNE BROWN M.D. Performed By: #### T SH3, CMP, PSAS, LIPID, SCAN CBC #### [address] Poikilocytosis Slight Normal [facility] Comment on above: Performed By: #### T SH3, CMP, PSAS, LIPID, SCAN CBC #### [address] Polychromasia Slight Normal [facility] Comment on above: Performed By: #### T SH3, CMP, PSAS, LIPID, SCAN CBC #### [address] Serum globulin measurement b y calculation (mass/volume)Ordered By: Angie Moran on 12-11-2023 Globulin (S) [Mass/Vol] 2.2 g/dL [facility] Comment on above: Performed By: #### T SH3, CMP, PSAS, LIPID, SCAN CBC #### [address] Serum or plasma albumin/glob ulin mass ratioOrdered By: Angie Moran on 12-11-2023 Albumin/Globulin [Mass ratio] 1.8 {ratio} [facility] Comment on above: Performed By: #### T SH3, CMP, PSAS, LIPID, SCAN CBC #### [address] Serum or plasma anion gap de terminationOrdered By: Angie Moran on 12-11-2023 Anion gap [Moles/Vol] 11.0 mmol/L Normal 6.0-15.0 [facility] Comment on above: Performed By: #### T SH3, CMP, PSAS, LIPID, SCAN CBC #### [facility] [address] [place] [address] Serum or plasma high density lipoprotein (HDL) cholesterol measurementOrdered By: Angie Moran on 12-11-2023 Cholesterol in HDL [Mass/Vol] 41 mg/dL Normal [facility] Comment on above: HDL CHOL ATP-III CLA SSIFICATION Cardiovascular RiskHDL > or equal to 60 mg/dL LOWHDL < 40 mg/dL HIGH Result Comment: HDL CHOL ATP-III CLASSIFICATION Cardiovascular Risk HDL > or equal to 60 mg/dL LOW HDL < 40 mg/dL HIGH Performed By: #### T SH3, CMP, PSAS, LIPID, SCAN CBC #### [facility] [address] Serum or plasma total choles terol/high density lipoprotein (HDL) cholesterol mass ratOrdered By: Angie Moran on 12-11-2023 Cholesterol.total/Cho lesterol in HDL [Mass ratio] 2.8 {ratio} Normal <5.0 [facility] Comment on above: Performed By: #### T SH3, CMP, PSAS, LIPID, SCAN CBC #### [facility] [address] Sodium [Moles/volume] in Ser um or PlasmaOrdered By: Angie Moran on 12-11-2023 Sodium [Moles/Vol] 139 mmol/L Normal 136-145 [facility] Comment on above: Performed By: #### T SH3, CMP, PSAS, LIPID, SCAN CBC #### [address] Thyrotropin [Units/volume] i n Serum or PlasmaOrdered By: Angie Moran on 12-11-2023 TSH Qn 0.34 m[IU]/L Low 0.45-5.33 [facility] Comment on above: Result Comment: PERF ORMED BY: [place] [address] PATHOLOGIST BEET END SUPERVISOR ADRIANNE BROWN M.D. Performed By: #### T SH3, CMP, PSAS, LIPID, SCAN CBC #### [address] Triglyceride [Mass/volume] i n Serum or PlasmaOrdered By: Angie Moran on 12-11-2023 Triglyceride [Mass/Vol] 46 mg/dL 0-149 [facility] Comment on above: TRIG ATP III CLASSIF ICATIONTRIG less than 150 mg/dL NormalTRIG 150-199 mg/dL Borderline highTRIG 200-500 mg/dL High TRIG greater than 500 mg/dL Very highStandard traceable to the Center for Disease Conrtrol and Prevention (CDC) test method. Urea nitrogen [Mass/volume] in Serum or PlasmaOrdered By: Angie Moran on 12-11-2023 Urea nitrogen [Mass/Vol] 28 mg/dL High 11-11 [facility] Comment on above: Performed By: #### T SH3, CMP, PSAS, LIPID, SCAN CBC #### [facility] [address] XR knee BI 4Von 08-27-2023 XR knee BI 4V [facility] [place] [address] XRay Report Signed Patient: Kojo Rausch MR#: [id number] : 1955 Acct:[id number] Age/Sex: 68 / M ADM Date: 08/27/23 Loc: [facility] Room: Type: [facility] Attending Dr: Ken Rocha II, MD Copies to: Ken Rocha MD Ordering Provider: Ken Rocha MD Date of Service: 08/27/23 XR/XR knee BI 4V: M25.561 - Pain in right knee 4 views both knee plain film COMPARISON: None HISTORY: Bilateral knee pain ACUTE FINDINGS: No acute findings DEGENERATIVE CHANGE: Bilateral medial narrowing with [id number] contact. A moderate patellofemoral narrowing. SOFT TISSUE FINDINGS: Unremarkable JOINT EFFUSION: Tiny joint effusions bilaterally. POSTOP CHANGES: None BONE MINERALIZATION: Adequate XR/XR knee BI 4V IMPRESSION: Extensive medial degeneration bilaterally. Extensive patellofemoral degeneration bilaterally. Impression dictated by: Golden Morrissey M.D.08/27/2023 5:01 PM Dictation Location: [place] [address] Transcribed By: [facility] 08/27/23 1701 Dictated By: Golden Morrissey DO 08/27/23 1659 Signed By: 08/27/23 1701 Normal [facility] XR pelvis 1-2Von 08-27-2023 XR pelvis 1-2V [facility] [place] [id number] XRay Report Signed Patient: Kojo Rausch MR#: [id number] : 1955 Acct:[id number] Age/Sex: 68 / M ADM Date: 08/27/23 Loc: [facility] Room: Type: [facility] Attending Dr: Ken Rocha II, MD Copies to: Ken Rocha MD Ordering Provider: Ken Rocha MD Date of Service: 08/27/23 XR/XR pelvis 1-2V: M25.561 - Pain in right knee Low view single pelvis plain film HISTORY: Bilateral knee pain. COMPARISON: None ACUTE FINDINGS: None BONY ALIGNMENT: Adequate SOFT TISSUES: Unremarkable DEGENERATIVE CHANGE:Mild hip degeneration INTRAPELVIC STRUCTURES: Unremarkable POSTSURGICAL CHANGES:None XR/XR pelvis 1-2V IMPRESSION:Mild bilateral hip degeneration Impression dictated by: Golden Morrissey M.D.08/27/2023 5:03 PM Dictation Location: [place] [id number] Transcribed By: [facility] 08/27/23 170 Dictated By: Golden Morrissey DO 08/27/23 170 Signed By: 08/27/23 1703 Normal [facility] ECG 12 lead (Clinic Performe d)on 08-14-2023 See scan [facility] Work Phone: Lipid 1996 panelon 4 Cholesterol [Mass/Vol] 122 mg/dL Normal 0-199 [facility] Comment on above: Result Comment: Age Desirable Borderline High High 0-19 Y 0 - 169 170 - 199 >/= 200 20-24 Y 0 - 189 190 - 224 >/= 225 >24 Y 0 - 199 200 - 239 >/= 240 All ranges are based on fasting samples. Specific therapeutic targets will vary based on patient-specific cardiac risk. Pediatric guidelines reference:Pediatrics 2011, 128(S5).Adult guidelines reference: NCEP ATPIII Guidelines,LUCILA 2001, 258:2486-97 Venipuncture immediately after or during the administration of Metamizole may lead to falsely low results. Testing should be performed immediately prior to Metamizole dosing. Performed By: #### 2 4331-1 #### GOMEZ BORGES ([id number]) [facility] ([facility]) [address] [place] [address] Cholesterol in HDL [Mass/Vol] 34.4 mg/dL Normal [facility] Comment on above: Result Comment: Age Very Low Low Normal High 0-19 Y < 35 < 40 40-45 ---- 20-24 Y ---- < 40 >45 ---- >24 Y ---- < 40 40-60 >60 Performed By: #### 2 4331-1 #### GOMEZ BORGES ([id number]) [facility] ([facility]) [address] [place] [address] Cholesterol in LDL [Mass/Vol] 59 mg/dL Normal <=99 [facility] Comment on above: Result Comment: Near Borderline AGE Desirable Optimal High High Very High 0-19 Y 0 - 109 --- 110-129 >/= 130 ---- 20-24 Y 0 - 119 --- 120-159 >/= 160 ---- >24 Y 0 - 99 100-129 130-159 160-189 >/=190 Performed By: #### 2 4331-1 #### GOMEZ BORGES ([id number]) [facility] ([facility]) [address] [place] [address] Cholesterol in VLDL [Mass/Vol] 29 mg/dL Normal 0-40 [facility] Comment on above: Performed By: #### 2 4331-1 #### GOMEZ BORGES ([id number]) [facility] ([facility]) [address] [place] [address] CHOLESTEROL/HDL RATIO 3.5 Normal [facility] Comment on above: Result Comment: Ref Values Desirable < 3.4 High Risk > 5.0 Performed By: #### 2 4331-1 #### GOMEZ BORGES ([id number]) [facility] (EM) [address] [place] [address] 35943 NON HDL CHOLESTEROL 88 mg/dL Normal 0-149 [facility] Comment on above: Result Comment: Age Desirable Borderline High High Very High 0-19 Y 0 - 119 120 - 144 >/= 145 >/= 160 20-24 Y 0 - 149 150 - 189 >/= 190 ---- >24 Y 30 mg/dL above LDL Cholesterol goal Performed By: #### 2 4331-1 #### GOMEZ BORGES ([id number]) [facility] ([facility]) [address] [place] [address] Triglyceride [Mass/Vol] 144 mg/dL Normal 0-149 [facility] Comment on above: Result Comment: Age Desirable Borderline High High Very High 0 D-90 D 19 - 174 ---- ---- ---- 91 D- 9 Y 0 - 74 75 - 99 >/= 100 ---- 10-19 Y 0 - 89 90 - 129 >/= 130 ---- 20-24 Y 0 - 114 115 - 149 >/= 150 ---- >24 Y 0 - 149 150 - 199 200- 499 >/= 500 Venipuncture immediately after or during the administration of Metamizole may lead to falsely low results. Testing should be performed immediately prior to Metamizole dosing. Performed By: #### 2 4331-1 #### GOMEZ BORGES ([id number]) [facility] ([facility]) [address] [place] [address] Renal function 2000 panelon 07-14-2023 Albumin BCP dye [Mass/Vol] 4.4 g/dL Normal 3.4-5.0 [facility] Comment on above: Performed By: #### 2 4362-6 #### GOMEZ BORGES ([id number]) [facility] ([facility]) [address] [place] [address] Anion gap [Moles/Vol] 11 mmol/L Normal 10-20 [facility] Comment on above: Performed By: #### 2 4362-6 #### GOMEZ BORGES ([id number]) [facility] (EM) [address] [place] [address] Calcium [Mass/Vol] 9.7 mg/dL Normal 8.6-10.3 [facility] Comment on above: Performed By: #### 2 4362-6 #### GOMEZ BORGES ([id number]) [facility] ([facility]) [address] [place] [address] Chloride [Moles/Vol] 101 mmol/L Normal 98-107 [facility] Comment on above: Performed By: #### 2 4362-6 #### GOMEZ BORGES ([id number]) [facility] ([facility]) [address] [place] [address] CO2 [Moles/Vol] 31 mmol/L Normal 21-32 [facility] Comment on above: Performed By: #### 2 4362-6 #### GOMEZ BORGES ([id number]) [facility] ([facility]) [address] [place] [address] Creatinine [Mass/Vol] 1.28 mg/dL Normal 0.50-1.30 [facility] Comment on above: Performed By: #### 2 4362-6 #### GOMEZ BORGES ([id number]) [facility] ([facility]) [address] [place] [address]66 Glomerular filtration rate/1.73 sq M.predicted 61 mL/min/1.73m*2 Normal >60 [facility] Comment on above: Result Comment: Calc ulations of estimated GFR are performed using the 2020 CKD-EPI Study Refit equation without the race variable for the IDMS-Traceable creatinine methods. https://jasn.asnjournals.org/content//ASN.453205 9751 Performed By: #### 2 4362-6 #### GOMEZ BORGES ([id number]) [facility] ([facility]) [address] [place] [address] Glucose [Mass/Vol] 90 mg/dL Normal 74-99 [facility] Comment on above: Performed By: #### 2 4362-6 #### GOMEZ BORGES ([id number]) [facility] ([facility]) [address] [place] [address] Phosphate [Mass/Vol] 4.1 mg/dL Normal 2.5-4.9 [facility] Comment on above: Result Comment: The performance characteristics of phosphorus testing in heparinized plasma have been validated by the individual laboratory site where testing is performed. Testing on heparinized plasma is not approved by the FDA; however, such approval is not necessary. Performed By: #### 2 4362-6 #### GOMEZ BORGES ([id number]) [facility] ([facility]) [address] [place] [address] Potassium [Moles/Vol] 3.6 mmol/L Normal 3.5-5.3 [facility] Comment on above: Performed By: #### 2 4362-6 #### GOMEZ BORGES ([id number]) [facility] ([facility]) [address] [place] [address] Sodium [Moles/Vol] 139 mmol/L Normal 136-145 [facility] Comment on above: Performed By: #### 2 4362-6 #### GOMEZ BORGES ([id number]) [facility] ([facility]) [address] [place] [address]86 Urea nitrogen [Mass/Vol] 22 mg/dL Normal 6-23 [facility] Comment on above: Performed By: #### 2 4362-6 #### GOMEZ BORGES ([id number]) [facility] ([facility]) [address] [place] [address] ECG 12 lead (Ancillary Perfo rmed)Ordered By: Zachary Cunha on 03-03-2023 Atrial Rate 416 BPM [facility] Work Phone: Q Onset 211 ms [facility] Work Phone: QRS Count 10 beats [facility] Work Phone: QRS Duration 90 ms [facility] Work Phone: QT Interval 440 ms [facility] Work Phone: [phone] QTC Calculation(Bazett) 440 ms [facility] Work Phone: QTC Fredericia 440 ms [facility] Work Phone: R Eads -4 degrees [facility] Work Phone: T Eads 10 degrees [facility] Work Phone: T Offset 431 ms [facility] Work Phone: Ventricular Rate 60 BPM [facility] Work Phone: [facility] Work Phone: ECG 12 lead (Ancillary Perfo rmed)on 03-03-2023 Atrial fibrillation Abnormal ECG When compared with ECG of 21-MAR-2020 08:55, Atrial fibrillation has replaced Sinus rhythm Confirmed by Zachary Cunha ([id number]) on 03/03/2023 12:42:22 PM MUSE Zachary Cunha M D - 03/03/2023 Atrial fibrillation Abnormal ECG When compared with ECG of 21-MAR-2020 08:55, Atrial fibrillation has replaced Sinus rhythm Confirmed by Zachary Cunha ([id number]) on 03/03/2023 12:42:22 PM [facility] Work Phone: ECG 12-LEADon 03-03-2023 ECG 12-LEAD Ventricular Rate 60 Atrial Rate 416 QRS Duration 90 Q-T Interval 440 QTC Calculation(Bazett) 440 R Eads -4 T Eads 10 QRS Count 10 Q Onset 211 T Offset 431 QTC Fredericia 440 Diagnosis Atrial fibrillation Abnormal ECG When compared with ECG of 21-MAR-2020 08:55, Atrial fibrillation has replaced Sinus rhythm Confirmed by Zachary Cunha ([id number]) on 03/03/2023 12:42:22 PM Normal [facility] Alanine aminotransferase [En zymatic activity/volume] in Serum or PlasmaOrdered By: Angie Moran on 02-23-2023 ALT [Catalytic activity/Vol] 18 U/L Normal [facility] Comment on above: Order Comment: Reaso n for Exam HTN (hypertension) Performed By: #### C BC, CMP #### [address] Albumin [Mass/volume] in Ser um or Plasma by Bromocresol green (BCG) dye binding methoOrdered By: Angie Moran on 02-23-2023 Albumin BCG dye [Mass/Vol] 4.3 g/dL 3.5-5.7 [facility] Alkaline phosphatase [Enzyma tic activity/volume] in Serum or PlasmaOrdered By: Angie Moran on 02-23-2023 ALP [Catalytic activity/Vol] 113 U/L High 34-104 [facility] Comment on above: Order Comment: Reaso n for Exam HTN (hypertension) Result Comment: PERF ORMED BY: [place] [address] PATHOLOGIST [employer]PERVISOR ADRIANNE BROWN M.D. Performed By: #### C BC, CMP #### [address] Aspartate aminotransferase [ Enzymatic activity/volume] in Serum or PlasmaOrdered By: Angie Moran on 02-23-2023 AST [Catalytic activity/Vol] 16 U/L Normal 13-39 [facility] Comment on above: Order Comment: Reaso n for Exam HTN (hypertension) Performed By: #### C BC, CMP #### [address] Automated basophil %Ordered By: Angie Moran on 02-23-2023 Basophils/100 WBC (Bld) 0.7 % Normal . [facility] Comment on above: Order Comment: Reaso n for Exam HTN (hypertension) Performed By: #### C BC, CMP #### [address] Automated basophil countOrde red By: Angie Moran on 02-23-2023 Basophils (Bld) [#/Vol] 0.1 10*3/uL Normal 0.0-0.2 [facility] Comment on above: Order Comment: Reaso n for Exam HTN (hypertension) Result Comment: PERF ORMED BY: [place] [address] PATHOLOGIST [employer] SUPERVISOR ADRIANNE BROWN M.D. Performed By: #### C BC, CMP #### [address] Automated blood monocyte cou ntOrdered By: Angie Moran on 02-23-2023 Monocytes (Bld) [#/Vol] 0.5 10*3/uL Normal 0.0-0.8 [facility] Comment on above: Order Comment: Reaso n for Exam HTN (hypertension) Performed By: #### C BC, CMP #### [facility] [address] Automated eosinophil %Ordere d By: Angie Moran on 02-23-2023 Eosinophils/100 WBC (Bld) 1.6 % Normal . [facility] Comment on above: Order Comment: Reaso n for Exam HTN (hypertension) Performed By: #### C BC, CMP #### [facility] [address] Automated eosinophil countOr dered By: Angie Moran on 02-23-2023 Eosinophils (Bld) [#/Vol] 0.1 10*3/uL Normal 0.0-0.45 [facility] Comment on above: Order Comment: Reaso n for Exam HTN (hypertension) Performed By: #### C BC, CMP #### [address] Automated monocyte %Ordered By: Angie Moran on 02-23-2023 Monocytes/100 WBC (Bld) 7.0 % Normal . [facility] Comment on above: Order Comment: Reaso n for Exam HTN (hypertension) Performed By: #### C BC, CMP #### [facility] [address] [place] [address] Automated neutrophil %Ordere d By: Angie Moran on 02-23-2023 Neutrophils/100 WBC (Bld) 65.1 % Normal . [facility] Comment on above: Order Comment: Reaso n for Exam HTN (hypertension) Performed By: #### C BC, CMP #### [address] Bilirubin.total [Mass/volume ] in Serum or PlasmaOrdered By: Angie Moran on 02-23-2023 Bilirubin [Mass/Vol] 0.8 mg/dL Normal 0.3-1.0 [facility] Comment on above: Order Comment: Reaso n for Exam HTN (hypertension) Performed By: #### C BC, CMP #### [facility] [address] Calcium [Mass/volume] in Ser um or PlasmaOrdered By: Angie Moran on 02-23-2023 Calcium [Mass/Vol] 9.3 mg/dL Normal 8.6-10.3 [facility] Comment on above: Order Comment: Reaso n for Exam HTN (hypertension) Performed By: #### C BC, CMP #### [address] Carbon dioxide, total [Moles /volume] in Serum or PlasmaOrdered By: Angie Moran on 02-23-2023 CO2 [Moles/Vol] 28.5 mmol/L Normal 21.0-31.0 [facility] Comment on above: Order Comment: Reaso n for Exam HTN (hypertension) Performed By: #### C BC, CMP #### [place] [address] [place] Chloride [Moles/volume] in S shira or PlasmaOrdered By: Angie Moran on 02-23-2023 Chloride [Moles/Vol] 104 mmol/L Normal 98-107 [facility] Comment on above: Order Comment: Reaso n for Exam HTN (hypertension) Performed By: #### C BC, CMP #### [address] Complete Blood Count Auto Di ffon 02-23-2023 Mean Corpuscular HGB Conc 33.3 g/dL Normal 32.5-35.6 [facility] Comment on above: Order Comment: Reaso n for Exam HTN (hypertension) Performed By: #### C BC, CMP #### [place] [address] [place] NRBC% 0.2 /100{WBC} Normal 0-0.5 [facility] Comment on above: Order Comment: Reaso n for Exam HTN (hypertension) Performed By: #### C BC, CMP #### [place] [address] [place] Comprehensive Metabolic Pane john 02-23-2023 Albumin [Mass/Vol] 4.3 g/dL Normal 3.5-5.7 [facility] Comment on above: Order Comment: Reaso n for Exam HTN (hypertension) Performed By: #### C BC, CMP #### [facility] [address] GFR/1.73 sq M.predicted MDRD (S/P/Bld) [Vol rate/Area] 54.619 mL/min/{1.73_m2} Normal [facility] Comment on above: Order Comment: Reaso n for Exam HTN (hypertension) Performed By: #### C BC, CMP #### [address] Creatinine [Mass/volume] in Serum or PlasmaOrdered By: Angie Moran on 02-23-2023 Creatinine [Mass/Vol] 1.41 mg/dL High 0.70-1.30 [facility] Comment on above: Order Comment: Reaso n for Exam HTN (hypertension) Performed By: #### C BC, CMP #### [address] Erythrocyte distribution wid th [Ratio] by Automated countOrdered By: Angie Moran on 02-23-2023 Erythrocyte distribution width (RBC) [Ratio] 13.9 % Normal 12.0-14.8 [facility] Comment on above: Order Comment: Reaso n for Exam HTN (hypertension) Performed By: #### C BC, CMP #### [facility] [address] [place] [address] [place] Erythrocytes [#/volume] in B lood by Automated countOrdered By: Angie Moran on 02-23-2023 RBC (Bld) [#/Vol] 5.27 10*6/uL Normal 3.90-5.60 [facility] Comment on above: Order Comment: Reaso n for Exam HTN (hypertension) Performed By: #### C BC, CMP #### [place] [address] [place] Glucose [Mass/volume] in Ser um or PlasmaOrdered By: Angie Moran on 02-23-2023 Glucose [Mass/Vol] 102 mg/dL High 70-100 [facility] Comment on above: ADA recommended refe rence rangeRandom Glucose Reference Range is dependent on time and content of last meal. Glucose of more than 200 mg/dL in a nonstressed, ambulatory subject supports the diagnosis of Diabetes Mellitus. Order Comment: Reaso n for Exam HTN (hypertension) Result Comment: [place] om Glucose Reference Range is dependent on time and content of last meal. Glucose of more than 200 mg/dL in a nonstressed, ambulatory subject supports the diagnosis of Diabetes Mellitus. ADA recommended reference range Performed By: #### C BC, CMP #### [address] Hematocrit [Volume Fraction] of Blood by Automated countOrdered By: Angie Moran on 02-23-2023 Hematocrit (Bld) [Volume fraction] 47.2 % Normal 38.8-50.0 [facility] Comment on above: Order Comment: Reaso n for Exam HTN (hypertension) Performed By: #### C BC, CMP #### [address] Hemoglobin [Mass/volume] in BloodOrdered By: Angie Moran on 02-23-2023 Hemoglobin (Bld) [Mass/Vol] 15.7 g/dL Normal 13.0-17.0 [facility] Comment on above: Order Comment: Reaso n for Exam HTN (hypertension) Performed By: #### C BC, CMP #### [place] [address] [place] Leukocytes [#/volume] correc viet for nucleated erythrocytes in Blood by Automated counOrdered By: Angie Moran on 02-23-2023 WBC corrected for nucl RBC Auto (Bld) [#/Vol] 7.7 10*3/uL 4.1-10.5 [facility] Leukocytes [#/volume] in Blo od by Automated countOrdered By: Angie Moran on 02-23-2023 WBC (Bld) [#/Vol] 7.7 10*3/uL Normal 4.1-10.5 [facility] Comment on above: Order Comment: Reaso n for Exam HTN (hypertension) Performed By: #### C BC, CMP #### [place] [address] [place] Lymphocytes [#/volume] in Bl ood by Automated countOrdered By: Angie Moran on 02-23-2023 Lymphocytes (Bld) [#/Vol] 2.0 10*3/uL Normal 1.00-4.8 [facility] Comment on above: Order Comment: Reaso n for Exam HTN (hypertension) Performed By: #### C BC, CMP #### [place] [address] [place] Lymphocytes/100 leukocytes i n Blood by Automated countOrdered By: Angie Moran on 02-23-2023 Lymphocytes/100 WBC (Bld) 25.6 % Normal . [facility] Comment on above: Order Comment: Reaso n for Exam HTN (hypertension) Performed By: #### C BC, CMP #### [place] [address] [place] MCH [Entitic mass] by Automa viet countOrdered By: Angie Moran on 02-23-2023 MCH (RBC) [Entitic mass] 29.8 pg Normal 27.5-35.2 [facility] Comment on above: Order Comment: Reaso n for Exam HTN (hypertension) Performed By: #### C BC, CMP #### [address] MCHC Auto (RBC) [Mass/Vol]Or dered By: Angie Moran on 02-23-2023 MCHC (RBC) [Mass/Vol] 33.3 g/dL 32.5-35.6 [facility] MCV [Entitic volume] by Auto mated countOrdered By: Angie Moran on 02-23-2023 MCV (RBC) [Entitic vol] 89.5 fL Normal 83.5-101 [facility] Comment on above: Order Comment: Reaso n for Exam HTN (hypertension) Performed By: #### C BC, CMP #### [place] [address] [place] Neutrophils [#/volume] in Bl ood by Automated countOrdered By: Angie Moran on 02-23-2023 Neutrophils (Bld) [#/Vol] 5.0 10*3/uL Normal 1.8-7.7 [facility] Comment on above: Order Comment: Reaso n for Exam HTN (hypertension) Performed By: #### C BC, CMP #### [facility] [address] No Panel InformationOrdered By: Angie Moran on 02-23-2023 Estimated GFR (CKD-EPI) 54.619 mL/Min [facility] Creatinine Clearance (Chem N/A [facility] Nucleated erythrocytes [Pres ence] in Blood by Automated countOrdered By: Angie Moran on 02-23-2023 Nucleated RBC Auto Ql (Bld) 0.2 /100{WBC} 0-0.5 [facility] Platelet mean volume [Entiti c volume] in Blood by Automated countOrdered By: Angie Moran on 02-23-2023 Platelet mean volume (Bld) [Entitic vol] 8.3 fL Normal 6.6-10.1 [facility] Comment on above: Order Comment: Reaso n for Exam HTN (hypertension) Performed By: #### C BC, CMP #### [facility] [address] [place] [address] [place] Platelets [#/volume] in Bloo d by Automated countOrdered By: Angie Moran on 02-23-2023 Platelets (Bld) [#/Vol] 302 10*3/uL Normal 150-450 [facility] Comment on above: Order Comment: Reaso n for Exam HTN (hypertension) Performed By: #### C BC, CMP #### [facility] [address] [place] [address] [place] Potassium [Moles/volume] in Serum or PlasmaOrdered By: Angie Moran on 02-23-2023 Potassium [Moles/Vol] 4.1 mmol/L Normal 3.5-5.1 [facility] Comment on above: Order Comment: Reaso n for Exam HTN (hypertension) Performed By: #### C BC, CMP #### [facility] [address] [place] [address] [place] Protein [Mass/volume] in Ser um or PlasmaOrdered By: Angie Moran on 02-23-2023 Protein [Mass/Vol] 7.0 g/dL Normal 6.4-8.9 [facility] Comment on above: Order Comment: Reaso n for Exam HTN (hypertension) Performed By: #### C BC, CMP #### [facility] [address] Serum globulin measurement b y calculation (mass/volume)Ordered By: Angie Moran on 02-23-2023 Globulin (S) [Mass/Vol] 2.7 g/dL Normal [facility] Comment on above: Order Comment: Reaso n for Exam HTN (hypertension) Performed By: #### C BC, CMP #### [address] Serum or plasma albumin/glob ulin mass ratioOrdered By: Angie Moran on 02-23-2023 Albumin/Globulin [Mass ratio] 1.6 {ratio} [facility] Comment on above: Order Comment: Reaso n for Exam HTN (hypertension) Performed By: #### C BC, CMP #### [address] Serum or plasma anion gap de terminationOrdered By: Angie Moran on 02-23-2023 Anion gap [Moles/Vol] 11.6 mmol/L Normal 6.0-15.0 [facility] Comment on above: Order Comment: Reaso n for Exam HTN (hypertension) Performed By: #### C BC, CMP #### [place] [address] [place] Sodium [Moles/volume] in Ser um or PlasmaOrdered By: Angie Moran on 02-23-2023 Sodium [Moles/Vol] 140 mmol/L Normal 136-145 [facility] Comment on above: Order Comment: Reaso n for Exam HTN (hypertension) Performed By: #### C BC, CMP #### [place] [address] [place] Urea nitrogen [Mass/volume] in Serum or PlasmaOrdered By: Angie Moran on 02-23-2023 Urea nitrogen [Mass/Vol] 26 mg/dL High 7-25 [facility] Comment on above: Order Comment: Reaso n for Exam HTN (hypertension) Performed By: #### C BC, CMP #### [facility] [address] [place] [id number] [facility] Office Visit (Cardiology)on 12-09-2022 Follow-up visit Diagnoses/Problems Assessed CAD S/P percutaneous coronary angioplasty (414.01,V45.82) (I25.10,Z98.61) History of AK (myocardial infarction) (412) (I25.2) Hyperlipidemia (272.4) (E78.5) Hypertension (401.9) (I10) Morbid obesity with BMI of 40.0-44.9, adult (278.01,V85.41) (E66.01,Z68.41) Never a smoker Orders Hypertension Renew: Lisinopril 20 MG Oral Tablet; TAKE 1 TABLET DAILY Morbid obesity with BMI of 40.0-44.9, adult Healthy Weight Tips; Status:Complete - Retrospective Authorization; Done: [id number] Losing just 5 to 10 pounds may lower your risk of health problems.; Status:Complete - Retrospective Authorization; Done: [id number] SocHx: Never a smoker Tobacco Use Screening; Status:Complete; Done: [id number] Patient Instructions Patient to follow up as scheduled with Dr. Bianka Damon MD. [facility] in February. Plan to INCREASE Lisinopril to 20mg once daily. You can double your 10mg tablets to use up first. I sent 20mg tablet script to [facility] when you are ready. Continue using Amlodipine 5mg as you have been. No other changes today. Continue same medications and treatments. Patient educated on proper medication use. Patient educated on risk factor modification. Please bring any lab results from other providers / physicians to your next appointment. Please bring all medicines, vitamins, and herbal supplements with you when you come to the office. Prescriptions will not be filled unless you are compliant with your follow up appointments or have a follow up appointment scheduled as per instruction of your physician. Refills should be requested at the time of your visit. IYonathan RN am scribing for and in the presence of, Dr. Bianka Damon MD, [facility] Chief Complaint Patient presents with c/o elevated blood pressure. States he has noticed since his medications were changed at last visit that his blood pressure has been going up,he also c/o headaches History of Present Illness Patient is here for follow-up. His blood pressure was increasing after cutting back his amlodipine and lisinopril. His leg swelling markedly improved. I discussed with the patient in length that before we increase amlodipine back and cause more leg swelling we will increase lisinopril to 20 mg daily. He will be checking blood pressure report back to us. 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) Longstanding persistent atrial fibrillation (427.31) (I48.11) Morbid obesity with BMI of 40.0-44.9, adult (278.01,V85.41) (E66.01,Z68.41) Never a smoker Surgical History Problems History of Appendectomy History of Cardiac catheterization with stent placement History of Cardioversion History of Complete colonoscopy May.05 History of Hernia repair History of Leg surgery hematoma removal History of Meniscus repair x2 Past Medical History Problems History of Abnormal TSH (790.6) (R79.89) Resolved Date: 01 Mar 2021 History of pleural effusion (V12.69) (Z87.09) Resolved Date: 01 Mar 2021 Current Meds Medication NameInstruction Albuterol Sulfate HFA 108 (90 Base) MCG/ACT Inhalation Aerosol SolutionINHALE 1 TO 2 PUFFS EVERY 4 TO 6 HOURS NEEDED. amLODIPine Besylate 5 MG Oral TabletTAKE 1 TABLET DAILY NEEDED FOR SYSTOLIC BLOOD PRESSURE >150 Ezetimibe-Simvastatin 10-20 MG Oral TabletTAKE 1 TABLET BY MOUTH EVERY DAY Fish Oil 1000 MG Oral Capsule Delayed ReleaseTAKE 1 CAPSULE Daily hydroCHLOROthiazide 25 MG Oral TabletTAKE 1 TABLET DAILY DIRECTED. Isosorbide Mononitrate ER 60 MG Oral Tablet Extended Release 24 HourTake 1 tablet daily Levothyroxine Sodium 112 MCG Oral TabletTAKE 1 TABLET DAILY DIRECTED. Lisinopril 10 MG Oral TabletTAKE 1 TABLET DAILY. Magnesium Oxide -Mg Supplement 400 (240 Mg) MG Oral TabletTake 1 tablet twice daily Metoprolol Succinate ER 25 MG Oral Tablet Extended Release 24 HourTAKE 1 TABLET Bedtime NexIUM 40 MG Oral Capsule Delayed ReleaseTAKE 1 CAPSULE ONCE DAILY. Nitroglycerin 0.4 [address] Tablet Sublingual[address] 1 TABLET UNDER THE TONGUE EVERY 5 MINUTES FOR UP TO 3 DOSES NEEDED FOR CHEST PAIN.CALL 911 IF PAIN PERSISTS. Xarelto 20 MG Oral TabletTAKE 1 TABLET BY MOUTH EVERY DAY Allergies Medication No Known Drug Allergies Recorded By: Evon Brewer; 03/01/2021 8:14:21 AM Family History Mother No pertinent family history Father Family history of coronary artery disease (V17.3) (Z82.49) Family history of myocardial infarction (V17.3) (Z82.49) Sibling (more content not included)... Normal [employer] Tobacco Screening.on 023 Fall risk assessment a) No falls within the last year [facility] [employer] a 305 DO Work Phone: Tobacco use status [facility] b) No [facility] [employer] a 305 DO Work Phone: Tobacco Screening. Yes [facility] [employer] a 305 DO Work Phone: Office Visit (Cardiology)on 09-19-2022 Follow-up visit Orders CAD S/P percutaneous coronary angioplasty, Hypertension Start: amLODIPine Besylate 5 MG Oral Tablet; TAKE 1 TABLET DAILY NEEDED FOR SYSTOLIC BLOOD PRESSURE >150 Hypertension Stop: amLODIPine Besy-Benazepril HCl - 10-20 MG Oral Capsule Renew: Lisinopril 10 MG Oral Tablet; TAKE 1 TABLET DAILY SocHx: Never a smoker Tobacco Use Screening; Status:Complete; Done: 19Sep2022 [employer] Healthy Weight Tips; Status:Complete - Retrospective Authorization; Done: [id number] Losing just 5 to 10 pounds may lower your risk of health problems.; Status:Complete - Retrospective Authorization; Done: [id number] Patient Instructions Patient to follow up in [address] Bianka Damon MD. [facility] Patient to STOP Amlodipine-Benazepril combo tablet entirely Patient to CONTINUE Lisinopril 10mg once daily Patient to START Amlodipine 5mg once daily, ONLY for your systolic blood pressure over 150 No other changes today. Continue same medications and treatments. Patient educated on proper medication use. Patient educated on risk factor modification. Please bring any lab results from other providers / physicians to your next appointment. Please bring all medicines, vitamins, and herbal supplements with you when you come to the office. Prescriptions will not be filled unless you are compliant with your follow up appointments or have a follow up appointment scheduled as per instruction of your physician. Refills should be requested at the time of your visit. I, Yonathan Farrell RN am scribing for and in the presence of, Dr. Bianka Damon MD, [facility] Chief Complaint Patient here for 2 week follow-up History of Present Illness Patient is here for follow-up. Doing much better after stopping amlodipine his leg swelling markedly improved. He is doing well his blood pressure is adequately controlled did not have any symptoms of syncope or presyncope. He is continue to be on the lisinopril. I discussed with the patient in length that we will continue medication he can use amlodipine 5 mg as needed for blood pressure above 150 other than that he will continue current medication. 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) Longstanding persistent atrial fibrillation (427.31) (I48.11) Never a smoker Surgical History Problems History of Appendectomy History of Cardiac catheterization with stent placement History of Cardioversion History of Complete colonoscopy May.05 History of Hernia repair History of Leg surgery hematoma removal History of Meniscus repair x2 Past Medical History Problems History of Abnormal TSH (790.6) (R79.89) Resolved Date: 01 Mar 2021 History of pleural effusion (V12.69) (Z87.09) Resolved Date: 01 Mar 2021 Current Meds Medication NameInstruction Albuterol Sulfate HFA 108 (90 Base) MCG/ACT Inhalation Aerosol SolutionINHALE 1 TO 2 PUFFS EVERY 4 TO 6 HOURS NEEDED. amLODIPine Besy-Benazepril HCl - 10-20 MG Oral CapsuleTAKE 1 CAPSULE Daily. ON HOLD PER CARDIOLOGY FOR 2 WEEKS Ezetimibe-Simvastatin 10-20 MG Oral TabletTAKE 1 TABLET BY MOUTH EVERY DAY Fish Oil 1000 MG Oral Capsule Delayed ReleaseTAKE 1 CAPSULE Daily hydroCHLOROthiazide 25 MG Oral TabletTAKE 1 TABLET DAILY DIRECTED. Isosorbide Mononitrate ER 60 MG Oral Tablet Extended Release 24 HourTAKE 1 TABLET BY MOUTH EVERY DAY Levothyroxine Sodium 112 MCG Oral TabletTAKE 1 TABLET DAILY DIRECTED. Lisinopril 10 MG Oral TabletTAKE 1 TABLET DAILY. Magnesium Oxide 400 (240 Mg) MG Oral TabletTake 1 tablet twice daily Metoprolol Succinate ER 25 MG Oral Tablet Extended Release 24 HourTAKE 1 TABLET Bedtime NexIUM 40 MG Oral Capsule Delayed ReleaseTAKE 1 CAPSULE ONCE DAILY. Nitroglycerin 0.4 MG Sublingual Tablet SublingualPL[address] 1 TABLET UNDER THE TONGUE EVERY 5 MINUTES FOR UP TO 3 DOSES NEEDED FOR CHEST PAIN.CALL 911 IF PAIN PERSISTS. Xarelto 20 MG Oral TabletTake 1 tablet daily Allergies Medication No Known Drug Allergies Recorded By: Evon Brewer; 03/01/2021 8:14:21 AM Family History Mother No pertinent family history Father Family history of coronary artery disease (V17.3) (Z82.49) Family history of myocardial infarction (V17.3) (Z82.49) Sibling No pertinent family history Social History Problems Never a smoker No illicit drug use Occasional caffeine consumption 2x weekly Social alcohol use (V49.89) (Z78.9) maybe once a month Review of Systems Const (more content not included)... Normal [employer] Tobacco Screening.on 023 Fall risk assessment a) No falls within the last year [facility] [employer] a [address] DO Work Phone: Tobacco use status [facility] b) No [facility] a [address] DO Work Phone: Tobacco Screening. Yes [facility] a [address] DO Work Phone: [phone] Office Visit (Cardiology)on 09-02-2022 Follow-up visit Diagnoses/Problems Assessed CAD S/P percutaneous coronary angioplasty (414.01,V45.82) (I25.10,Z98.61) Hyperlipidemia (272.4) (E78.5) Hypertension (401.9) (I10) Morbid obesity with BMI of 45.0-49.9, adult (278.01,V85.42) (E66.01,Z68.42) Never a smoker Orders Hypertension Start: Lisinopril 10 MG Oral Tablet; TAKE 1 TABLET DAILY Changed: From amLODIPine Besy-Benazepril HCl - 10-20 MG Oral Capsule TAKE 1 CAPSULE Daily To amLODIPine Besy-Benazepril HCl - 10-20 MG Oral Capsule TAKE 1 CAPSULE Daily. ON HOLD PER CARDIOLOGY FOR 2 WEEKS Morbid obesity with BMI of 45.0-49.9, adult Healthy Weight Tips; Status:Complete - Retrospective Authorization; Done: [id number] Losing just 5 to 10 pounds may lower your risk of health problems.; Status:Complete - Retrospective Authorization; Done: [id number] SocHx: Never a smoker Tobacco Use Screening; Status:Complete; Done: [id number] Patient Instructions Patient to follow up in 2-[address] Bianka Damon MD. [facility] Patient to trial holding Amlodipine/Benazepril combo tablet for 2 weeks to see if this improves your leg swelling. You will need to closely monitor your blood pressure. Patient to START Lisinopril 10mg once daily to replace the Benazepril part of the above combo pill. No other changes today. Continue same medications and treatments. Patient educated on proper medication use. Patient educated on risk factor modification. Please bring any lab results from other providers / physicians to your next appointment. Please bring all medicines, vitamins, and herbal supplements with you when you come to the office. Prescriptions will not be filled unless you are compliant with your follow up appointments or have a follow up appointment scheduled as per instruction of your physician. Refills should be requested at the time of your visit. I, Yonathan Farrell RN am scribing for and in the presence of, Dr. Bianka Damon MD, [facility] The provider reviewed the following test(s) and result(s) with the patient: laboratory tests Chief Complaint Patient here for overdue follow up. Last seen in October 2020 History of Present Illness Patient is here for follow-up with history of atrial fibrillation currently in sinus rhythm. He is off amiodarone. He is taking the statin therapy. He stated that he has bilateral leg swelling could be related to amlodipine. He is taking combination of amlodipine 10 and benazepril 20. I discussed with the patient at length that the only way to know if to hold amlodipine and reassess the leg swelling. We will hold the medication and start lisinopril 10 mg p.o. daily. He will check blood pressure at home and report back to us. 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) Longstanding persistent atrial fibrillation (427.31) (I48.11) Morbid obesity with BMI of 45.0-49.9, adult (278.01,V85.42) (E66.01,Z68.42) Never a smoker Surgical History Problems History of Appendectomy History of Cardiac catheterization with stent placement History of Cardioversion History of Complete colonoscopy May.05 History of Hernia repair History of Leg surgery hematoma removal History of Meniscus repair x2 Past Medical History Problems History of Abnormal TSH (790.6) (R79.89) Resolved Date: 01 Mar 2021 History of pleural effusion (V12.69) (Z87.09) Resolved Date: 01 Mar 2021 Current Meds Medication NameInstruction Albuterol Sulfate HFA 108 (90 Base) MCG/ACT Inhalation Aerosol SolutionINHALE 1 TO 2 PUFFS EVERY 4 TO 6 HOURS NEEDED. amLODIPine Besy-Benazepril HCl - 10-20 MG Oral CapsuleTAKE 1 CAPSULE Daily Ezetimibe-Simvastatin 10-20 MG Oral TabletTAKE 1 TABLET BY MOUTH EVERY DAY Fish Oil 1000 MG Oral Capsule Delayed ReleaseTAKE 1 CAPSULE Daily hydroCHLOROthiazide 25 MG Oral TabletTAKE 1 TABLET DAILY DIRECTED. Isosorbide Mononitrate ER 60 MG Oral Tablet Extended Release 24 HourTAKE 1 TABLET BY MOUTH EVERY DAY Levothyroxine Sodium 112 MCG Oral TabletTAKE 1 TABLET DAILY DIRECTED. Magnesium Oxide 400 (240 Mg) MG Oral TabletTake 1 tablet twice daily Metoprolol Succinate ER 25 MG Oral Tablet Extended Release 24 HourTAKE 1 TABLET Bedtime NexIUM 40 MG Oral Capsule Delayed ReleaseTAKE 1 CAPSULE ONCE DAILY. Nitroglycerin 0.4 MG Sublingual Tablet SublingualPLACE 1 TABLET UNDER THE TONGUE EVERY 5 MINUTES FOR UP TO 3 DOSES NEEDED FOR CHEST PAIN.CALL 911 IF PAIN PERSISTS. Xarelto 20 MG Oral TabletTake 1 tablet daily Allergies Medication No Known Drug Aller (more content not included)... Normal [employer] Tobacco Screening.on 023 Adult depression screening assessment No [facility] [employer] a [address] DO Work Phone: Fall risk assessment a) No falls within the last year [facility] [employer] a 305 DO Work Phone: Tobacco use status [facility] b) No [facility] [employer] a 305 DO Work Phone: Office Visit (Cardiology)on 08-08-2022 Follow-up visit Diagnoses/Problems Assessed Longstanding persistent atrial fibrillation (427.31) (I48.11) Anticoagulated (V58.61) (Z79.01) CAD S/P percutaneous coronary angioplasty (414.01,V45.82) (I25.10,Z98.61) High risk medication use (V58.69) (Z79.899) Hyperlipidemia (272.4) (E78.5) History of AK (myocardial infarction) (412) (I25.2) Bradycardia (427.89) (R00.1) Encounter for medication counseling (V65.49) (Z71.89) Encounter to discuss test results (V65.49) (Z71.2) Morbid obesity with BMI of 45.0-49.9, adult (278.01,V85.42) (E66.01,Z68.42) Hypertension (401.9) (I10) Never a smoker Orders Longstanding persistent atrial fibrillation Renew: Magnesium Oxide 400 (240 Mg) MG Oral Tablet; Take 1 tablet twice daily Avoid alcoholic beverages.; Status:Complete - Retrospective Authorization; Done: [id number] EKG Electrocardiogram- 12 Lead; Status:Active - Perform Order,Retrospective Authorization; Requested for:[id number]; Avoid foods and beverages that contain caffeine.; Status:Complete - Retrospective Authorization; Done: [id number] Eat a normal well-balanced diet.; Status:Complete - Retrospective Authorization; Done: [id number] Morbid obesity with BMI of 45.0-49.9, adult Healthy Weight Tips; Status:Complete - Retrospective Authorization; Done: [id number] Losing just 5 to 10 pounds may lower your risk of health problems.; Status:Complete - Retrospective Authorization; Done: [id number] SocHx: Never a smoker Tobacco Use Screening; Status:Complete; Done: [id number] Patient Instructions Patient to follow up in 6 months and [address] Ilene Robles MD. FACC, FACP, FHRS Will do EKG during your visits Patient to STOP Amiodarone moving forward. Patient to INCREASE Magnesium Oxide to 400mg twice daily. Continue your Metoprolol for heart rate control. No other changes today. Continue same medications and treatments. Patient educated on proper medication use. Patient educated on risk factor modification. Please bring any lab results from other providers / physicians to your next appointment. Please bring all medicines, vitamins, and herbal supplements with you when you come to the office. Prescriptions will not be filled unless you are compliant with your follow up appointments or have a follow up appointment scheduled as per instruction of your physician. Refills should be requested at the time of your visit. Yonathan Rothman RN am scribing for and in the presence of, Dr. Ilene Robles MD, FACC, FACP, [facility] The provider reviewed the following test(s) and result(s) with the patient: ECG and laboratory tests Chief Complaint Pt. here for scheduled f/u Adult Risk Screening Initial Fall Risk Screening: KOJO has not fallen in the last 6 months. Tobacco Screening: KOJO does not use tobacco. History of Present Illness He is here for electrophysiology followup The patient and both here to discuss atrial fibrillation. The patient denies any lightheadedness, near syncope, syncope, palpitation, chest discomfort, dyspnea, RILEY with mild exertion, PND, or edema. He request to stop taking amiodarone because of potential side effects. See ROS, PMH, FMH, and surgical history for details. Personal review of ECG and cardiac data reviewed outside records: OV with me October 2021 ECG October 2021 ECG February 2021 Office visit Wanda Becerra NP February 2021 PFTs April 2020. DLCO 69%. Office visit with Kate Hairston March 2020 Procedure note March 2020 Echocardiogram January 2020. Ejection fraction 6065%. Biatrial enlargement. Left atrial size 5.2 cm. Mild to moderate MR, moderate TR, RV systolic pressure 52 mmHg Holter monitor July 2020. No atrial fibrillation. No significant bradycardia. ECG: Today. Sinus bradycardia. First-degree AV block. Incomplete right bundle branch block. Poor R wave progression. Right axis deviation. Corrected QT interval 450 ms. Imp / Plan Persistent atrial fibrillation chronic. Underlying substrate of pulmonary hypertension, valvular heart disease and left atrial enlargement. Chronic. Stable, Status post cardioversion March 2020 . Reviewed medications. We will discontinue amiodarone given patient is concerned about side effects and no recurrence of his arrhythmias. Behavior modification reinforced. Add magnesium oxide. Utilize metoprolol succinate for rate control if atrial fibrillation were to recur. Anticoagulated with Xarelto. Prescription sent [facility]. January 2020. [id number] 2 High risk medication-Xarelto. Chronic. Stable. Continue long-term Asymptomatic sinus bradycardia. Chronic. Stable. Reviewed meds. Okay to continue metoprolol low-dose. Coronary artery disease -chronic. Stable. Status post multivessel PCI stent.-2004 PCI/MAC proximal circumflex, PCI/MAC RCA. Last catheterization 2007 with mid LAD 30%, circumflex negative, RCA 20%. Subsequent perfusion study with probable artifact, no clear ischemia in 2018. Reviewed medications. Con (more content not included)... Normal [employer] Tobacco Screening.on 023 Adult depression screening assessment No [facility] a [address] DO Work Phone: Fall risk assessment a) No falls within the last year [facility] a 320 DO Work Phone: Tobacco use status [facility] b) No -[facility] a 320 DO Work Phone: Cholesterol [Mass/volume] in Serum or PlasmaOrdered By: Angie Moran on 08-07-2022 Cholesterol [Mass/Vol] 132 mg/dL 140-200 [facility] Comment on above: Chol less than 200 m g/dl low riskChol 201-239 mg/dl borderline riskChol 240 mg/dl and greater high risk Cholesterol in LDL Calc [Mas s/Vol]Ordered By: Angie Moran on 08-07-2022 Cholesterol in LDL [Mass/Vol] 66 mg/dL 0-100 [facility] Comment on above: LDL ATP III CLASSIFI CATIONLDL less than 100 mg/dL OptimalLDL 100-129 mg/dL Near or above optimalLDL 130-159 mg/dL Borderline highLDL 160-189 mg/dL HighLDL greater than 189 mg/dL Very high Cholesterol in VLDL Calc [Ma ss/Vol]Ordered By: Angie Moran on 08-07-2022 Cholesterol in VLDL [Mass/Vol] 20 mg/dL [facility] Serum or plasma high density lipoprotein (HDL) cholesterol measurementOrdered By: Angie Moran on 08-07-2022 Cholesterol in HDL [Mass/Vol] 46 mg/dL 29-71 [facility] Comment on above: HDL CHOL ATP-III CLA SSIFICATION Cardiovascular RiskHDL > or equal to 60 mg/dL LOWHDL < 40 mg/dL HIGH Serum or plasma total choles terol/high density lipoprotein (HDL) cholesterol mass ratOrdered By: Angie Moran on 08-07-2022 Cholesterol.total/Cho lesterol in HDL [Mass ratio] 2.9 {ratio} <5.0 [facility] Thyrotropin [Units/volume] i n Serum or PlasmaOrdered By: Angie Moran on 08-07-2022 TSH Qn 5.79 m[IU]/L 0.45-5.33 [facility] Thyroxine (T4) free [Mass/vo lume] in Serum or PlasmaOrdered By: Angie Moran on 08-07-2022 Free T4 [Mass/Vol] 1.04 ng/dL 0.61-1.12 [facility] Triglyceride [Mass/volume] i n Serum or PlasmaOrdered By: Angie Moran on 08-07-2022 Triglyceride [Mass/Vol] 101 mg/dL 0-149 [facility] Comment on above: TRIG ATP III CLASSIF ICATIONTRIG less than 150 mg/dL NormalTRIG 150-199 mg/dL Borderline highTRIG 200-500 mg/dL High TRIG greater than 500 mg/dL Very highStandard traceable to the Center for Disease Conrtrol and Prevention (CDC) test method. Triiodothyronine (T3) Free [ Mass/volume] in Serum or PlasmaOrdered By: Angie Moran on 08-07-2022 Free T3 [Mass/Vol] 3.16 pg/mL 2.50-3.90 [facility] Bacteria identified Aer cx N om (Unsp spec)Ordered By: Juan Pina on 01-10-2022 Aerobic Culture Klebsiella pneumoniae [facility] Aerobic Culture Enterobacter cloacae [facility] Bacteria identified Anaer cx Nom (Unsp spec)Ordered By: Juan Pina on 01-10-2022 Anaerobic microbial culture No Anaerobes Isolated 3 Days [facility] ABO and Rh group post transf usion reaction Nom (Bld)Ordered By: Juan Pina on 01-08-2022 Microscopic observation Gram stain Nom (Unsp spec) [facility] Basophils Auto (Bld) [#/Vol] Ordered By: Reji Brown on 01-07-2022 Basophils (Bld) [#/Vol] 0.1 10*3/uL 0.0-0.2 [facility] Basophils/100 WBC Auto (Bld) Ordered By: Reji Brown on 01-07-2022 Basophils/100 WBC (Bld) 0.8 % . [facility] Blood hemoglobin measurement (mass/volume)Ordered By: Reji Brown on 01-07-2022 Hemoglobin (Bld) [Mass/Vol] 13.2 g/dL 13.0-17.0 [facility] Blood leukocytes automated c ount (number/volume)Ordered By: Reji Brown on 01-07-2022 WBC (Bld) [#/Vol] 7.0 10*3/uL 4.5-11.0 [facility] Creatinine and Glomerular fi ltration rate.predicted panel (S/P/Bld)Ordered By: Reji Brown on 01-07-2022 Creatinine [Mass/Vol] 1.33 mg/dL 0.64-1.27 [facility] Eosinophils Auto (Bld) [#/Vo l]Ordered By: Reji Brown on 01-07-2022 Eosinophils (Bld) [#/Vol] 0.2 10*3/uL 0.0-0.45 [facility] Eosinophils/100 WBC Auto (Bl d)Ordered By: Reji Brown on 01-07-2022 Eosinophils/100 WBC (Bld) 2.7 % . [facility] Erythrocyte distribution wid th Auto (RBC) [Ratio]Ordered By: Reji Brown on 01-07-2022 Erythrocyte distribution width (RBC) [Ratio] 15.1 % 12.0-14.8 [facility] Estimated glomerular filtrat ion rate (GFR) non- AmericanOrdered By: Reji Brown on 01-07-2022 GFR/1.73 sq M.predicted among non-blacks MDRD (S/P/Bld) [Vol rate/Area] 54 mL/Min [facility] Hematocrit Auto (Bld) [Volum e fraction]Ordered By: Reji Brown on 01-07-2022 Hematocrit (Bld) [Volume fraction] 40.7 % 38.8-50.0 [facility] Laboratory - Hematology and Cell countsOrdered By: Reji Brown on 01-07-2022 Nucleated RBC/100 WBC (Bld) [Ratio] 0.1 % 0-0.5 [facility] Lymphocytes Auto (Bld) [#/Vo l]Ordered By: Reji Kevin on 01-07-2022 Lymphocytes (Bld) [#/Vol] 1.5 10*3/uL 1.00-4.8 [facility] Lymphocytes/100 WBC Auto (Bl d)Ordered By: Reji Kevin on 01-07-2022 Lymphocytes/100 WBC (Bld) 21.9 % . [facility] MCH Auto (RBC) [Entitic mass ]Ordered By: Reji Brown on 01-07-2022 MCH (RBC) [Entitic mass] 29.1 pg 27.5-35.2 [facility] MCHC Auto (RBC) [Mass/Vol]Or dered By: Reji Kevin on 01-07-2022 MCHC (RBC) [Mass/Vol] 32.5 g/dL 32.5-35.6 [facility] MCV Auto (RBC) [Entitic vol] Ordered By: Reji Kevin on 01-07-2022 MCV (RBC) [Entitic vol] 89.6 fL 83.5-101 [facility] Monocytes Auto (Bld) [#/Vol] Ordered By: Reji Kevin on 01-07-2022 Monocytes (Bld) [#/Vol] 0.6 10*3/uL 0.0-0.8 [facility] Monocytes/100 WBC Auto (Bld) Ordered By: Reji Kevin on 01-07-2022 Monocytes/100 WBC (Bld) 8.5 % . [facility] Neutrophils Auto (Bld) [#/Vo l]Ordered By: Reji Kevin on 01-07-2022 Neutrophils (Bld) [#/Vol] 4.6 10*3/uL 1.8-7.7 [facility] Neutrophils/100 WBC Auto (Bl d)Ordered By: Reji Brown on 01-07-2022 Neutrophils/100 WBC (Bld) 66.1 % . [facility] No Panel InformationOrdered By: Reji Brown on 01-07-2022 Estimated GFR () > 60 mL/Min [facility] Comment on above: GFR estimated refere nce range: According to KDOQI guidelines, <60 ml/min/1.73m2 is sufficient to diagnose a patient with chronic kidney disease. Pharmacy Creatinine Clearance (Chem 75.91 [facility] Platelet mean volume Auto (B ld) [Entitic vol]Ordered By: Reji Brown on 01-07-2022 Platelet mean volume (Bld) [Entitic vol] 7.7 fL 6.6-10.1 [facility] Platelets Auto (Bld) [#/Vol] Ordered By: Reji Brown on 01-07-2022 Platelets (Bld) [#/Vol] 381 10*3/uL 150-450 [facility] RBC Auto (Bld) [#/Vol]Ordere d By: Reji Brown on 01-07-2022 RBC (Bld) [#/Vol] 4.54 10*6/uL 3.90-5.60 [facility] Serum or plasma anion gap de terminationOrdered By: Reji Brown on 01-07-2022 Anion gap [Moles/Vol] 13.7 mmol/L 6.0-15.0 [facility] Serum or plasma calcium chaparrita urement (mass/volume)Ordered By: Reji Brown on 01-07-2022 Calcium [Mass/Vol] 9.0 mg/dL 8.2-10.2 [facility] Serum or plasma chloride kera surement (moles/volume)Ordered By: Reji Brown on 01-07-2022 Chloride [Moles/Vol] 100 mmol/L 95-114 [facility] Serum or plasma glucose chaparrita urement (mass/volume)Ordered By: Reji Brown on 01-07-2022 Glucose [Mass/Vol] 103 mg/dL 70-100 [facility] Comment on above: ADA recommended refe rence range Random Glucose Reference Range is dependent on time and content of last meal. Glucose of more than 200 mg/dL in a nonstressed, ambulatory subject supports the diagnosis of Diabetes Mellitus. ADA recommended refe rence rangeRandom Glucose Reference Range is dependent on time and content of last meal. Glucose of more than 200 mg/dL in a nonstressed, ambulatory subject supports the diagnosis of Diabetes Mellitus. Serum or plasma potassium me asurement (moles/volume)Ordered By: Reji Brown on 01-07-2022 Potassium [Moles/Vol] 3.7 mmol/L 3.5-5.1 [facility] Serum or plasma sodium measu rement (moles/volume)Ordered By: Reji Brown on 01-07-2022 Sodium [Moles/Vol] 137 mmol/L 136-146 [facility] Serum or plasma total carbon dioxide measurement (moles/volume)Ordered By: eRji Brown on 01-07-2022 CO2 [Moles/Vol] 27.0 mmol/L 22.0-30.0 [facility] Serum or plasma urea nitroge n measurement (mass/volume)Ordered By: Reji Brown on 01-07-2022 Urea nitrogen [Mass/Vol] 23 mg/dL 9- [facility] COVID-19 Positive/NegativeOr dered By: Juan Pina on 01-03-2022 SARS-CoV-2 (COVID-19) N gene DYALN+probe Ql (Resp) Negative Negative [facility] Comment on above: Testing for SARS-CoV -2 by RT-PCR This test was developed and its performance characteristics determined by [employer] and validated at the [facility]. This test has not been FDA cleared or approved. This test has been authorized by FDA under an Emergency Use Authorization (EUA). This test has been validated in accordance with the FDA's Guidance Document (Policy for Diagnostics Testing in Laboratories Certified to Perform High Complexity Testing under CLIA prior to Emergency Use Authorization for Coronavirus Disease-2019 during the Public Health Emergency) issued on July 21, 2019. This test is only authorized for the duration of time the declaration that circumstances exist justifying the authorization of the emergency use of in vitro diagnostic tests for detection of SARS-CoV-2 virus and/or diagnosis of COVID-19 infection under section 564(b)(1) of the Act, 21 U.S.C. 360bbb-3(b)(1), unless the authorization is terminated or revoked sooner. Testing for SARS-CoV -2 by RT-PCRThis test was developed and its performance characteristics determined by [employer] and validated at the [facility]. This test has not been FDA cleared or approved. This test has been authorized by FDA under an Emergency Use Authorization (EUA). This test has been validated in accordance with the FDA's Guidance Document (Policy for Diagnostics Testing in Laboratories Certified to Perform High Complexity Testing under CLIA prior to Emergency Use Authorization for Coronavirus Disease-2019 during the Public Health Emergency) issued on July 21, 2019. This test is only authorized for the duration of time the declaration that circumstances exist justifying the authorization of the emergency use of in vitro diagnostic tests for detection of SARS-CoV-2 virus and/or diagnosis of COVID-19 infection under section 564(b)(1) of the Act, 21 U.S.C. 360bbb-3(b)(1), unless the authorization is terminated or revoked sooner. TSH DL <= 0.005 mIU/L QnOrde red By: Angie Moran on 11-05-2021 TSH Qn 7.34 m[IU]/L 0.45-5.33 [facility] Thyroxine (T4) free [Mass/vo lume] in Serum or PlasmaOrdered By: Angie Moran on 11-05-2021 Free T4 [Mass/Vol] 1.04 ng/dL 0.61-1.12 [facility] Tobacco Screening.on 022 Adult depression screening assessment No [facility] Work Phone: Fall risk assessment b) One or more fall s in the last year [facility] Work Phone: Tobacco use status [facility] b) No [facility]-yri a 320 DO Work Phone: Tobacco Screening.on 021 Fall risk assessment a) No falls within the last year [facility]-yri a 320 DO Work Phone: Tobacco use status [facility] b) No [facility]-yri a 320 DO Work Phone: [facility] CARDIAC STRESS/REST INJE CTIONon 11-29-2020 [facility] CARDIAC STRESS/REST INJECTION Patient Name: KOJO RAUSCH STUDY: MYOCARDIAL PERFUSION STRESS TEST WITH LEXISCAN Performing facility[facility] [address] [place] [address] [facility] Provider: Bianka Damon MD, FACC PCP: Dr. Sergei MORAN Supervising provider: Wanda Salinas RN, MSN, COMPOSITE LAYUP WORKER INDICATION: 3 VESSEL CAD HISTORY OF AK HISTORY OF PTCA HISTORY: Gender: M; Age: 65 y/o ; Height: 175.26 cm; Weight: 893.2426096 kg. High Cholesterol; HTN; Chest Pain;SOB COPD ASTHMA CAD; Previous AK;2004 Arrhythmias;AFIB Family HX CAD; PLEURAL Effusion; Elevated Diaphragm Denies smoking. Cardiac catheterization on 2007, 2005, 2004. PTCA on LAD 2005, CX 2004. COMPARISON: Previous nuclear testing completed [id number] at [facility]. ACCESSION NUMBER(S): [id number]; [id number]; [id number] ORDERING CLINICIAN: BIANKA DAMON TECHNIQUE: TWO DAY protocol. Stress injection: Date:11/29/20, 35.1 mCi of Myoview IV 20 seconds after rapid injection of Lexiscan. Rest injection: Date: 11/30/20, 34.9 mCi of Myoview IV at rest. The patient had a rapid injection of 0.4 mg of Lexiscan IV over 10 seconds. Imaging was performed by gated tomographic technique. Reason for Lexiscan: SOB; KNEE ISSUES STRESS TEST DATA: Resting heart rate was 45 BPM. Resting blood pressure was 134/72 mmHg. Peak blood pressure was 124/82 mmHg. Peak heart rate was 57 BPM. TEST TERMINATED DUE TO: Protocol completed FINDINGS: STRESS TEST RESULTS: Resting electrocardiogram revealed normal sinus rhythm. There were no significant ischemic ECG changes or dysrhythmias. The patient did not have chest pains/symptoms during procedure. There was a normal recovery phase. IMAGING RESULTS: Image quality was good. Rest and stress tomographic images were reviewed and revealed abnormal perfusion. There was no evidence of perfusion abnormality of myocardial ischemia. There was evidence of perfusion abnormality with medium-sized area of severely reduced perfusion uptake in the basal inferior wall, which is fixed on both rest and stress images consistent with infarction. There was no left ventricular dilatation with stress. Overall left ventricular systolic function appeared to be normal. There was base inferolateral hypokinesis. LVEF was 58%. TID is 1.12 and is normal. There was evidence of diaphragmatic attenuation artifact. IMPRESSION: Abnormal Lexiscan Myoview cardiac perfusion stress test. No independent myocardial ischemia by perfusion imaging. Moderate basal inferolateral myocardial infarction by perfusion imaging. Normal left ventricular systolic function. Left ventricular ejection fraction 58 %. When compared to prior study from January 2018, the previously described inferoseptal ischemia is no longer visualized. None invasive risk stratification is intermediate risk. Electronically signed by: TOBIN WHITE MD Normal [facility] BASIC METABOLIC PANELon 12-0 Anion gap [Moles/Vol] 14 mmol/L Normal 10 - 20 [facility] Comment on above: Performed By: #### B MP #### [address] [id number] Calcium [Mass/Vol] 8.9 mg/dL Normal 8.6 - 10.3 [facility] Comment on above: Performed By: #### B MP #### [address] [id number] Chloride [Moles/Vol] 103 mmol/L Normal 98 - 107 [facility] Comment on above: Performed By: #### B MP #### [address] [id number] Creatinine [Mass/Vol] 1.35 mg/dL High 0.50 - 1.30 [facility] Comment on above: Performed By: #### B MP #### [address] [id number] GFR- AM. 64 mL/min/1.73m2 Normal >60 [facility] Comment on above: Result Comment: CALC ULATIONS OF ESTIMATED GFR ARE PERFORMED USING THE MDRD STUDY EQUATION FOR THE IDMS-TRACEABLE CREATININE METHODS. CLIN CHEM 2007;53:766-72 Performed By: #### B MP #### [address] [id number] GFR-NON AM. 53 mL/min/1.73m2 Abnormal >60 [facility] Comment on above: Performed By: #### B MP #### [address] [id number] Glucose [Mass/Vol] 113 mg/dL High 74 - 99 [facility] Comment on above: Performed By: #### B MP #### [address] [id number] HCO3 (Bld) [Moles/Vol] 27 mmol/L Normal 21 - 32 [facility] Comment on above: Performed By: #### B MP #### [address] [id number] Potassium [Moles/Vol] 3.5 mmol/L Normal 3.5 - 5.3 [facility] Comment on above: Performed By: #### B MP #### [address] [id number] Sodium [Moles/Vol] 140 mmol/L Normal 136 - 145 [facility] Comment on above: Performed By: #### B MP #### [address] [id number] Urea nitrogen [Mass/Vol] 30 mg/dL High 6 - 23 [facility] Comment on above: Performed By: #### B MP #### [address] [id number] Daily Progress Note-Electrop hysiologyon 03-21-2020 Daily Progress Note-Electrophysiolog y Service: Electrophysiology Assessment and Plan: Code Status: Code StatusFull Code Assessment: Cardioversion Summary: External electric cardioversion of atrial fibrillation to normal sinus rhythm was achieved. Recommendations: 1.A 12 lead ECG should be performed prior to discharge from the hospital. 2.The patient should continue with the present medications. Amiodarone 400 mg daily will be continued. Discharge: 1.The patient recovered uneventfully from the effects of conscious and deep sedation. The patient left the EP laboratory hemodynamically stable and without neurological deficits. Follow up: 1.The patient will be discharged on the day of the procedure, following bed rest and subsequent ambulation, provided the recovery parameters are appropriate. The patient should call the instrumentation and controls designer immediately if symptoms recur, or for any problems. The patient and family ( via telephone with HIPAA consent) have been instructed accordingly. See signed procedural log and parameters. Procedures: Cardioversion. Diagnosis Atrial fibrillation Patient history: Please refer to the detailed history and physical on the patient's medical chart. Procedure narrative: The risks, benefits, and alternatives to the procedure and sedation were explained to the patient, and informed consent was obtained. The patient was in the fasting state. A grounding pad was placed. Self-adhesive anterior-posterior defibrillation pads were applied. A ZOLL defibrillator was used for monitoring and the defibrillator waveform was set to biphasic. The patient was set up for continuous monitoring of surface 12 lead ECG and pulse oximetry. Blood pressure was monitored with automatic cuff measurements. The procedure was performed under IV conscious sedation supplemented with intermittent deep sedation. 1.External electric cardioversion of atrial fibrillation to normal sinus rhythm was achieved with 200 Joules. Complications: The patient tolerated the procedure without any complications or incident. EBL 0cc Specimens obtained: No Prepared and signed by. Electronic Signatures: Ilene Robles) (Signed 21-Mar-2020 10:38) Authored: Service, Objective Data, Assessment and Plan, Note Completion Last Updated: 21-Mar-2020 10:38 by Ilene Robles) [facility] Patient Profile - Preop v2on 03-21-2020 Patient Profile - Preop v2 Profile: Initial Info: How to be AddressedRick(1) Spoken Language PreferredEnglish (1) Source of Informationpatient Are you currently using the Personal Electronic Health Record or [employer] (1) Are you interested in learning more about [facility] for the management of your healthyes, information provided Email [email or web address] Stated Reason for Admissionmy heart is of rhythm Primary Contact Name and NumberElizabeth Vasquez [phone] Patient Belongingssee belonging Medications Brought to Hospitalno General Health: Weight in kg136.7 kilogram(s) Weight in gqg083.3 pound(s) Weight Methodactual (measured) Scale Typestanding Height in feet5 feet Height in zunoof64 inch(es) Height in cm177.8 centimeter(s) Height Methodstated BMI (kg/m2)43.241 square meter Patient or Family Member Reaction to Anesthesiano previous reaction Blood Avoidance/Restrictionsnone Previous Transfusion Reactionno Health Mgmt: Symptoms/Conditions Managed at Homecardiovascular Cardiovascular Symptoms/Conditionshypertens ion Cardiovascular Management Strategiesmedication therapy Barriers to Managing Healthnone Relationship/Environ: Living Arrangementshouse Lives Withspouse Resource/Environmental Concernsnone [facility] Anticipated at Transitionnone Substance: Current or Former Substance Use never: Cigarette/Tobacco(1), e-Cigarette/Vaping(1) YES: Alcohol(1) Risk Screens: COVID-19 Screening Completedno exposure or symptoms Advance Directive/DNRno Advance Directive Information Givenpatient/family declined Advance Directive Mental Healthnot applicable During the past month, have you often been bothered by feeling down, depressed or hopelessno During the past month, have you often had little interest or pleasure in doing thingsno Have you had any thoughts of harming yourselfno Have you had any thoughts of harming anyone elseno Are you or have you been threatened or abused physically,emotionally or sexually abused by anyoneno Do you feel UNSAFE going back to the place you are livingno Patient is Able to be Assessed for Learningyes Factors Influencing Readiness to Learninterest in learning Factors that Impact Ability to Learnnone Devices/Methods Used to Communicatenone Learning Preferenceswritten material; computer/internet; skill demonstration Cultural Considerationsnone Developmental Considerationsnone Advent Considerationsnone Other learner availableno Falls RiskPatient location auto qualifies him/her for HIGH RISK. Are there any cultural, spiritual, yarsanism practices/values/needs that are important for us to knowno Do you want a visit/item from [facility] Would you like your Marinator/Sales Operations Manager notifiedno Pain Scalenumerical 0-10 Pain Scale Educationteaching provided Current Pain Level0 = None Acceptable Pain Level7 = Severe Expression of Pain (nonverbal)verbalization Lifestyle Changes/Adaptations in Response to Painno change Chronic Painno Information Review: Allergies, Home Meds and Significant Events have been Reviewed and Verified with Patient/Familyyes Allergy, Intolerance, Adverse Event: Allergies: No Known Allergies: Active Electronic Signatures: Keerthi Chandler (MARIS) (Signed 21-Mar-2020 06:52) Authored: Initial Info, General Health, Health Mgmt, Relationship/Environ, Substance, Risk Screens, Additional Information Last Updated: 21-Mar-2020 06:52 by Keerthi Chandler (MARIS) References: 1. Data Referenced From Patient Profile - Adult v2 14-Feb-2020 07:[address] [facility] BASIC METABOLIC PANELon 01-19 ANION GAP Canceled Normal [facility] Comment on above: Order Comment: TEST BASIC METABOLIC PANEL WAS CANCELLED, 02/16/2020 01:43 Performed By: #### B MP #### [address] [id number] BICARBONATE Canceled Normal [facility] Comment on above: Order Comment: TEST BASIC METABOLIC PANEL WAS CANCELLED, 02/16/2020 01:43 Performed By: #### B MP #### [address] [id number] CALCIUM Canceled Normal [facility] Comment on above: Order Comment: TEST BASIC METABOLIC PANEL WAS CANCELLED, 02/16/2020 01:43 Performed By: #### B MP #### [address] [id number] CHLORIDE Canceled Normal [facility] Comment on above: Order Comment: TEST BASIC METABOLIC PANEL WAS CANCELLED, 02/16/2020 01:43 Performed By: #### B MP #### [address] [id number] CREATININE Canceled Normal [facility] Comment on above: Order Comment: TEST BASIC METABOLIC PANEL WAS CANCELLED, 02/16/2020 01:43 Performed By: #### B MP #### [address] [id number] GFR- AM. Canceled Normal [facility] Comment on above: Order Comment: TEST BASIC METABOLIC PANEL WAS CANCELLED, 02/16/2020 01:43 Result Comment: CALC ULATIONS OF ESTIMATED GFR ARE PERFORMED USING THE MDRD STUDY EQUATION FOR THE IDMS-TRACEABLE CREATININE METHODS. CLIN CHEM 2007;53:766-72 Performed By: #### B MP #### [address] [id number] GFR-NON AM. Canceled Normal [facility] Comment on above: Order Comment: TEST BASIC METABOLIC PANEL WAS CANCELLED, 02/16/2020 01:43 Performed By: #### B MP #### [address] [id number] GLUCOSE Canceled Normal [facility] Comment on above: Order Comment: TEST BASIC METABOLIC PANEL WAS CANCELLED, 02/16/2020 01:43 Performed By: #### B MP #### [address] [id number] POTASSIUM Canceled Normal [facility] Comment on above: Order Comment: TEST BASIC METABOLIC PANEL WAS CANCELLED, 02/16/2020 01:43 Performed By: #### B MP #### [address] [id number] SODIUM Canceled Normal [facility] Comment on above: Order Comment: TEST BASIC METABOLIC PANEL WAS CANCELLED, 02/16/2020 01:43 Performed By: #### B MP #### [address] [id number] UREA NITROGEN Canceled Normal [facility] Comment on above: Order Comment: TEST BASIC METABOLIC PANEL WAS CANCELLED, 02/16/2020 01:43 Performed By: #### B MP #### [address] [id number] MAGNESIUMon 02-16-[address] [facility] Comment on above: Order Comment: TEST MAGNESIUM WAS CANCELLED, 02/16/2020 01:43 Performed By: #### M G #### [address] [id number] BASIC METABOLIC PANELon 10-2 Anion gap [Moles/Vol] 13 mmol/L Normal 10 - 20 [facility] Comment on above: Performed By: #### B MP #### [address] [id number] Calcium [Mass/Vol] 8.8 mg/dL Normal 8.6 - 10.3 [facility] Comment on above: Performed By: #### B MP #### [address] [id number] Chloride [Moles/Vol] 103 mmol/L Normal 98 - 107 [facility] Comment on above: Performed By: #### B MP #### [address] [id number] Creatinine [Mass/Vol] 1.10 mg/dL Normal 0.50 - 1.30 [facility] Comment on above: Performed By: #### B MP #### [address] [id number] GFR- AM. >60 Normal >60 [facility] Comment on above: Result Comment: CALC ULATIONS OF ESTIMATED GFR ARE PERFORMED USING THE MDRD STUDY EQUATION FOR THE IDMS-TRACEABLE CREATININE METHODS. CLIN CHEM 2007;53:766-72 Performed By: #### B MP #### [address] [id number] GFR-NON AM. >60 Normal >60 [facility] Comment on above: Performed By: #### B MP #### [address] [id number] Glucose [Mass/Vol] 103 mg/dL High 74 - 99 [facility] Comment on above: Performed By: #### B MP #### [address] [id number] HCO3 (Bld) [Moles/Vol] 27 mmol/L Normal 21 - 32 [facility] Comment on above: Performed By: #### B MP #### [address] [id number] Potassium [Moles/Vol] 3.6 mmol/L Normal 3.5 - 5.3 [facility] Comment on above: Performed By: #### B MP #### [address] [id number] Sodium [Moles/Vol] 139 mmol/L Normal 136 - 145 [facility] Comment on above: Performed By: #### B MP #### [address] [id number] Urea nitrogen [Mass/Vol] 19 mg/dL Normal 6 - 23 [facility] Comment on above: Performed By: #### B MP #### [address] [id number] Discharge Lloepdi8do 020 Discharge Profile2 Discharge Orders: Anticipated Discharge Date: Anticipated Discharge [id number] Anticipated Discharge Time12:30 Hospital Course (Home Care/Gold Form): Hospital Course: Hospital Course: include significant abnormal lab values Patient was admitted electively on 02/14/2020 for antiarrhythmic drug loading under the care of Dr. Robles due to persistent atrial fibrillation with complaints of palpitations over the past several months. Routine blood work and ECG were obtained on admission. He was noted to be in atrial fibrillation with rates 50-60's and a QTc of 452. His K+ was 3.5. He was subsequently initiated on Amiodarone 400mg PO BID and given a one time dose of 40mEq of KCl. He underwent baseline PFT's. It was discovered late afternoon that the patients preadmission Covid test was negative, however was from 01/28/2020. He was subsequently retested at bedside and the rapid test came back positive. Patient was immediately put in quarantine with contact and droplet precautions and was transferred to the S Covid unit. This AM, the patient is doing well. He is tolerating the Amiodarone well. His ECG this AM shows Atrial Fibrillation at a rate of 56 and a QTc of 459. Patient denies any symptoms related to Covid. He has been afebrile, denies headache, dizziness, loss of taste or smell, denies runny nose, sore throat or cough. Denies c/o N/V/D/C. Denies c/o weakness, fatigue or worsening lower extremity edema. The plan will be to discharge patient today on Amiodarone 400mg PO daily x 2 weeks, then decrease to 200mg once daily thereafter. He is scheduled to return on 03/21/2020 for elective DCC. Patient understands the plan of care. All questions answered. Provider FINAL REVIEW of Orders: Final Review: Final Review of Medication Reconciliation and Orders Completedby HEAD CHOPPER Reviewing ProviderKENNETH Sabillon at 15-Feb-2020 11:24:33 Appointments: Follow-Up Appointment 01: Physician/Dept/ServiceDr. Robles Reason for ReferralCardioversion Scheduled Date/[id number] [facility] (Manager Android for [facility] if have questions) CommentsThe ALVIN J. SITEMAN [facility] Office will contact you on 03/20/2020 to give you a time to arrive on 03/21/2020. Nothing to eat or drink after midnight the morning of your procedure. You may take meds with sips of water. You should not have to be retested for Covid-19 since you have already tested positive unless the policy/guidelines change from now until then. Electronic Signatures: Arelis Heredia (KE-COMPOSITE LAYUP WORKER) (Signed 15-Feb-2020 11:35) Authored: Discharge Orders, Hospital Course (Home Care/Gold Form), Provider FINAL REVIEW of Orders, Appointments, Gold Form - It Communications Manager Summary Last Updated: 15-Feb-2020 11:35 by Arelis Heredia ([facility]) Normal [facility] MAGNESIUMon 02-15-2020 Magnesium [Mass/Vol] 2.10 mg/dL Normal 1.60 - 2.40 [facility] Comment on above: Performed By: #### C OAGS #### [address] [id number] TRIIODOTHYRONINE,FREEon 01-19 TRIIODOTHYRONINE,FREE 3.1 pg/mL Normal 2.3 - 4.2 [facility] Comment on above: Performed By: #### T 3FRE #### [facility] [address] [address] Admission Risk Screen - Adul ton 02-14-2020 Admission Risk Screen - Adult Allergies: Allergies: No Known Allergies: Patient Verification: New W ID Band Applied in my Departmentyes Patient Identity Verified Bypatient ID Band FULL Name, include Middle, spelling matches patient's ID used for verificationyes ID Band Matches Patient ID used for Verficationyes ID Band MRN Matches EMR MRNyes Visitor Restriction: Coronavirus Visitor Restriction: Reasonable restrictions to in-person visitors will be observed due to current coronavirus pandemic. Travel History: COVID-19 Screening Completedno exposure or symptoms Advance Directive: Advance Directive/DNRyes Advance Directive typeLiving Will Living Will AvailabilityLiving Will not available now Living Will [id number] May Fall Screen: History of falling (immediate or previous)no (0) Secondary Diagnosisno (0) Intravenous Therapy/ Heparin/Saline Lockyes (20) Gait/Transferringnormal/bedr est/wheelchair (0) Ambulatory Aidsnone/bedrest/nurse assist (0) Mental Statusoriented to own ability (0) Score: Low risk (<25). Moderate risk (25-44). High risk (>44).20 May InterventionsLOW INTERVENTIONS: *patient oriented to surroundings and call system, * patient/family falls education completed and documented, *patients fall status communicated during bedside handoff, *whiteboard updated, *mode of toileting discussed with patient, *bed in low position with brakes locked, *call light in reach, * non-skid footwear Family Violence Screen: Are you or have you been threatened or abused physically, emotionally, or sexually by anyoneno Has anyone ever threatened to hurt your family or your petsno Does anyone try to keep you from having/contacting other friends or doing things outside your homeno Do you feel UNSAFE going back to the place where you are livingno Do you feel anyone has exploited or taken advantage of you financially or of your personal propertyno Clinical assessment: Are there any apparent signs of injuries/behaviors that could be related to abuse/neglectno Social Service Consult for abuse/neglect needed this visitno Functional Screen: Functional Screen: In the recent/past 2-4 weeks, patient or family have noticedno issues that require a speech/language consult at this time AM-[facility]- Basic Mobility/Daily Activity: Patient baseline bedboundno Turning from your back to your side while in a flat bed without using bedrailsnone Moving from lying on your back to sitting on the side of a flat bed without using bedrailsnone Moving to and from bed to chair (including a wheelchair)none Standing up from a chair using your arms (e.g. wheelchair or bedside chair) none To walk in hospital roomnone Climbing 3-5 steps with railingnone AM-[facility] Basic Mobility- Total Score24 Putting on and taking off regular lower body clothingnone Bathing (including washing, rinsing, drying)none Putting on and taking off regular upper body clothingnone Toileting, which includes using toilet, bedpan or urinalnone Taking care of personal grooming such as brushing teethnone Eating Mealsnone AM-[facility] Daily Activity- Total Score24 Learning Assessment (Patient): Patient is Able to be Assessed for Learningyes Factors Influencing Readiness to Learninterest in learning Factors that Impact Ability to Learnvisual problems, contacts Devices/Methods Used to Communicateglasses Learning Preferencesindividual instruction; verbal instruction Cultural Considerationsnone Developmental Considerationsnone Advent Considerationsnone Learning Assessment (Other Learner): Other learner availableno Depression Screen: During the past month, have you often been bothered by feeling down, depressed or hopelessno During the past month, have you often had little interest or pleasure in doing thingsno Have you had any thoughts of harming anyone elseno Callands Suicide: Risk Screen Not Applicable/Able to Answerable to be screened In the Past Month: Have you wished you were or could go to sleep and not wake upno In the Past Month: Have you had any actual thoughts of killing yourselfno Lifetime: Have you ever done, started to do, or prepared to do anything to end your lifeno Callands Suicide Risknegative Adult Nutrition Screen: Have you recently lost weight without tryingno Have you been eating poorly because of a decreased appetiteno Malnutrition Screening Tool Score0 Malnutrition Screening Tool RiskMST = 0 or 1 Not at risk. Eating well with little or no weight loss Nutrition Consult needed this visitno Can Patient Participate in Room Serviceyes Patient requires Paper Dishes/Plastic Utensilsno Pain Screen: Pain Scalenumerical 0-10 Pain Scale Educationteaching provided Current Pain Level0 = None Acceptable Pain Level5 = Moderate Expression of Pain (nonverbal)none Lifestyle Changes/Adaptations in Response to Painno change Barriers to Reporting Painnon (more content not included)... Normal [facility] CBCon 02-14-2020 Erythrocyte distribution width (RBC) [Ratio] 13.6 % Normal 11.5 - 14.5 [facility] Comment on above: Performed By: #### C BC #### [address] [id number] Hematocrit (Bld) [Volume fraction] 44.8 % Normal 41.0 - 52.0 [facility] Comment on above: Performed By: #### C BC #### [address] [id number] Hemoglobin (Bld) [Mass/Vol] 15.1 g/dL Normal 13.5 - 17.5 [facility] Comment on above: Performed By: #### C BC #### [address] [id number] MCHC (RBC) [Mass/Vol] 33.7 g/dL Normal 32.0 - 36.0 [facility] Comment on above: Performed By: #### C BC #### [address] [id number] MCV (RBC) [Entitic vol] 90 fL Normal 80 - 100 [facility] Comment on above: Performed By: #### C BC #### [address] [id number] Platelets (Bld) [#/Vol] 255 10*3/uL Normal 150 - 450 [facility] Comment on above: Performed By: #### C BC #### [address] [id number] RBC 4.96 x10E12/L Normal 4.50 - 5.90 [facility] Comment on above: Performed By: #### C BC #### [address] [id number] WBC (Bld) [#/Vol] 7.1 10*3/uL Normal 4.4 - 11.3 [facility] Comment on above: Performed By: #### C BC #### [address] [id number] COAGULATION SCREENon 020 aPTT Coag (Bld) [Time] 49 s High 25 - 35 [facility] Comment on above: Result Comment: THE APTT IS NO LONGER USED FOR MONITORING UNFRACTIONATED HEPARIN THERAPY. FOR MONITORING HEPARIN THERAPY, USE THE HEPARIN ASSAY. Performed By: #### C OAGS #### [address] [id number] PT Coag (PPP) [Time] 29.2 s High 10.1 - 13.3 [facility] Comment on above: Performed By: #### C OAGS #### [address] [id number] PT, INR 2.5 High 0.9 - 1.1 [facility] Comment on above: Performed By: #### C OAGS #### [address] [id number] COMPREHENSIVE PANELon 2019 Albumin [Mass/Vol] 4.2 g/dL Normal 3.4 - 5.0 [facility] Comment on above: Performed By: #### T SH2 #### [address] [id number] ALP [Catalytic activity/Vol] 125 U/L Normal 33 - 136 [facility] Comment on above: Performed By: #### T SH2 #### [address] [id number] ALT [Catalytic activity/Vol] 24 U/L Normal 10 - 52 [facility] Comment on above: Result Comment: Luiza ents treated with Sulfasalazine may generate falsely decreased results for ALT. Performed By: #### T SH2 #### [address] [id number] Anion gap [Moles/Vol] 14 mmol/L Normal 10 - 20 [facility] Comment on above: Performed By: #### T SH2 #### [address] [id number] AST [Catalytic activity/Vol] 24 U/L Normal 9 - 39 [facility] Comment on above: Performed By: #### T SH2 #### [address] [id number] Bilirubin [Mass/Vol] 0.8 mg/dL Normal 0.0 - 1.2 [facility] Comment on above: Performed By: #### T SH2 #### [address] [id number] Calcium [Mass/Vol] 9.1 mg/dL Normal 8.6 - 10.3 [facility] Comment on above: Performed By: #### T SH2 #### [address] [id number] Chloride [Moles/Vol] 102 mmol/L Normal 98 - 107 [facility] Comment on above: Performed By: #### T SH2 #### [address] [id number] Creatinine [Mass/Vol] 1.38 mg/dL High 0.50 - 1.30 [facility] Comment on above: Performed By: #### T SH2 #### [address] [id number] GFR- AM. 63 mL/min/1.73m2 Normal >60 [facility] Comment on above: Result Comment: CALC ULATIONS OF ESTIMATED GFR ARE PERFORMED USING THE MDRD STUDY EQUATION FOR THE IDMS-TRACEABLE CREATININE METHODS. CLIN CHEM 2007;53:766-72 Performed By: #### T SH2 #### [address] [id number] GFR-NON AM. 52 mL/min/1.73m2 Abnormal >60 [facility] Comment on above: Performed By: #### T SH2 #### [address] [id number] Glucose [Mass/Vol] 122 mg/dL High 74 - 99 [facility] Comment on above: Performed By: #### T SH2 #### [address] [id number] HCO3 (Bld) [Moles/Vol] 26 mmol/L Normal 21 - 32 [facility] Comment on above: Performed By: #### T SH2 #### [address] [id number] Potassium [Moles/Vol] 3.5 mmol/L Normal 3.5 - 5.3 [facility] Comment on above: Performed By: #### T SH2 #### [address] [id number] Protein [Mass/Vol] 7.2 g/dL Normal 6.4 - 8.2 [facility] Comment on above: Performed By: #### T SH2 #### [address] [id number] Sodium [Moles/Vol] 138 mmol/L Normal 136 - 145 [facility] Comment on above: Performed By: #### T SH2 #### [address] [id number] Urea nitrogen [Mass/Vol] 32 mg/dL High 6 - 23 [facility] Comment on above: Performed By: #### T SH2 #### [address] [id number] CORONAVIRUS 2019, SCREEN ASY MPTOMATICon 02-14-2020 SARS-CoV-2 (COVID-19) RNA DYLAN+probe Ql (Unsp spec) Detected Abnormal Not Detected [facility] Comment on above: Order Comment: Pepe KISER to Lennie Urbina, 02/14/2020 20:18 Result Comment: . This assay is designed to detect the N2 and E genes of SARS-CoV-2 via nucleic acid amplification. A Not Detected result does not preclude COVID-19 infection since the adequacy of sample collection and/or low viral burden may result in presence of viral nucleic acids below the clinical sensitivity of this test method. Fact sheet for providers: www.fda.gov/media/398783/download Fact sheet for patients: www.fda.gov/media/018311/download This test has received FDA Emergency Use Authorization (EUA) and has been verified by [facility]. This test is only authorized for the duration of time that circumstances exist to justify the authorization of the emergency use of in vitro diagnostic tests for the detection of SARS-CoV-2 virus and/or diagnosis of COVID-19 infection under section 564(b)(1) of the Act, 21 U.S.C. 360bbb-3(b)(1), unless the authorization is terminated or revoked sooner. [facility] is certified under CLIA-88 as qualified to perform high complexity testing. Testing is performed in the [facility] laboratory located at [address] [place] [address]. Called- RB to Lennie Trejo, 02/14/2020 20:18 Performed By: #### C OVSC #### [address] [id number] EMPLOYED IN HEALTHCARE? No Normal [facility] Comment on above: Order Comment: Pepe jorge- RB to Lennie Urbina, 02/14/2020 20:18 Performed By: #### C OVSC #### [address] [id number] HOSPITALIZED (OR PLANNED TO BE ADMITTED)? Yes Normal [facility] Comment on above: Order Comment: Cantu d- RB to Lennie Urbina, 02/14/2020 20:18 Performed By: #### C OVSC #### [address] [id number] ICU? No Normal [facility] Comment on above: Order Comment: Pepe d- RB to Lennie Urbina, 02/14/2020 20:18 Performed By: #### C OVSC #### [address] [id number] REQUIRED FOR PROCEDURE/SURGERY? Unknown Normal [facility] Comment on above: Order Comment: Cantu d- RB to Lennie Urbina, 02/14/2020 20:18 Performed By: #### C OVSC #### [address] [id number] RESIDENT IN CONGREGATE CARE SETTING? No Normal [facility] Comment on above: Order Comment: Cantu d- RB to Lennie Urbina, 02/14/2020 20:18 Performed By: #### C OVSC #### [address] [id number] SARS-CoV-2 (COVID-19) Ab IA Ql No Normal [facility] Comment on above: Order Comment: Cantu d- RB to Lennie Urbina, 02/14/2020 20:18 Performed By: #### C OVSC #### [address] [id number] SYMPTOMATIC DEFINED BY CDC? No Normal [facility] Comment on above: Order Comment: Cantu d- RB to Lennie Urbina, 02/14/2020 20:18 Performed By: #### C OVSC #### [address] [id number] Lab Specimen Source Nasal, Nasopharyngeal Normal [facility] Comment on above: Order Comment: Cantu d- RB to Lennie Urbina, 02/14/2020 20:18 Performed By: #### C OVSC #### [address] [id number] Covid 19 Resultson 0 SARS-CoV-2 (COVID-19) RNA DYLAN+probe Ql (Unsp spec) Adult POSITIVE COVID-19 Test Talking Points Your local Health Department may be in contact, as they are tracking all POSITIVE patients. Limit your contact with others (HOME ISOLATION). You should be home quarantined unless your local public health department tells you otherwise. If you do not hear from the public health department, you should remain in quarantine at home until it has been at least 10 days since symptoms started AND no fever for at least 24 hours without fever reducing medicine AND your symptoms are improving. If you are a employee, Employee Health will contact you for return to work instructions. As much as possible, stay in a specific room and away from other people in your home. Also, you should use a separate bathroom if possible. People who do not have a need to be in your home should not visit. Try to stay in places in the home that have good airflow. Allow getting fresh air when possible. It is very important to cover their mouth and nose with a tissue when coughing or sneezing. After coughing or sneezing or cleaning up used tissues, immediately wash your hands with soap and water for at least 20 seconds. If soap and water are not available, clean hands with an alcohol-based hand compliance intern that contains at least 60% alcohol. Remember to clean your hands often. Avoid sharing personal household items such as dishes, drinking glasses, cups, eating utensils, towels, or bedding with other people or pets in your home. After you use these items, they should be washed with soap and water. Clean all high-touch surfaces (tabletops, doorknobs, bathroom fixtures, toilets, phones, keyboards, tablets, and bedside tables) every day with antibacterial cleaning solutions such as Lysol wipes, bleach, cleansers, etc. Immediately clean any surfaces that may have your blood, poop, or body fluids like tears, drool, urine, sweat, and mucous on them. Use antibacterial cleaning solutions such as Lysol wipes, bleach, cleansers, etc. Wash laundry thoroughly. Immediately remove and wash clothes or bedding that have blood, poop, or body fluids on them. Read and follow directions on labels of laundry detergent and/or clothing items. If possible, mask whenever you leave your room. Recommendations for those caring for someone with COVID-19 Wash your hands frequently with soap and water for 20 seconds or use an alcohol-based hand compliance intern that contains at least 60% alcohol. Avoid touching your face Do not permit visitors who do not have an essential need to be in your home. Mask when caring for these individuals. Household members caring for a COVID-19 positive patient should consider self-quarantine for 14 days. If symptoms develop, testing for COVID-19 should be considered.. Revised 7.28.20 Electronic Signatures: Latonya Hanks (ADMIN) (Signature pending) Authored Last Updated: 14-Feb-2020 20:14 by Latonya Hanks (ADMIN) Normal [facility] Discharge Planning [id number] 1 Discharge Planning Note2 Discharge Planning: Needs Prior to Discharge (ex. Home Care Orders, IV/O2 prescriptions) Prescriptions Planned Dispositionhome Discharge DestinationHOME [facility] [place] of Choice Explainedyes Anticipated Discharge [id number] Discharge Planning 02/15/2020 1147 TCC I SPOKE WITH WESLEY GAMA, THE RN CARING FOR THE PATIENT, AND SHE STATES THAT PATIENT WAS SCHEDULED TO COME IN FOR A CARDIOVERSION AND WAS RETESTED FOR COVID AND IT WAS POSITIVE. PATIENT WAS ADMITTED FOR DRUG LOADING HE IS IN [place]IB. PATIENT IS SCHEDULED TO COME BACK 03/21/2020 FOR CARDIOVERSION. PATIENT WAS HAVING EKG DONE TODAY AND THEN CAN DC. PATIENT LIVES WITH HIS AND IS TOTALLY INDEPENDENT WITH ADLS AND IADLS. 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 PATIENT'S PREFERENCE IS TO DC HOME WITH NO FURTHER NEEDS. PCP, INSURANCE AND ADDRESS VERIFIED. PATIENT STATES HE WILL SCHEDULE HIS OWN F/U WITH PCP ONCE DC. ZECHARIAH UNDERWOOD RN Assessment: Discharge Planning Assessment [id number] Primary Contact Name and NumberElizabeth Rausch [phone] (1) Stated Reason for AdmissionGiving me meds to correct my heartbeat.(1) [place] Readmission Within the Last 30 Daysno previous admission in last 30 days Lives Withspouse(1) Living Arrangementscondominium(1) Resource/Environmental Concernsnone(1) Anticipated Transition [place](1) Services Anticipated at Transitionnone(1) Anticipated Changes Related to Illnessnone Equipment Needed After Dischargenone Anticipated Discharge Facility/Level of Care NeedsHome Electronic Signatures: Arline West (RN) (Signed 14-Feb-2020 08:17) Authored: Discharge Planning, Assessment Asha Underwood (COOR) (Signed 15-Feb-2020 11:49) Authored: Discharge Planning, Assessment Last Updated: 15-Feb-2020 11:49 by Asha Underwood (COOR) References: 1. Data Referenced From Patient Profile - Adult v2 14-Feb-2020 07:[address] [facility] MAGNESIUMon 02-14-2020 Magnesium [Mass/Vol] 2.20 mg/dL Normal 1.60 - 2.40 [facility] Comment on above: Performed By: #### M G #### [facility] [address], [place] [id number] Patient Profile - Adult v2on 02-14-2020 Patient Profile - Adult v2 Profile: Initial Info: How to be AddressedRick Spoken Language PreferredEnglish Source of Informationpatient; family Stated Reason for AdmissionGiving me meds to correct my heartbeat. Primary Contact Name and NumberElizabeth Rausch [phone] Employment Statusemployed Temporary Family Living Arrangements (While Hospitalized)none needed Limitations on Visitors/Phone Callsnone Current or Previous Serviceactive duty, past Patient Belongingsnone History of MDROno [facility] To in Past 90 Daysnone Medications Brought to Hospitalno Are you currently using the Personal Electronic Health Record or Vumanity Mediano Are you interested in learning more about [facility] for the management of your healthyes, information provided Email [email or web address] Family/Rep Notified of Admissionyes, primary contact Notify PCPnotify PCP Informed of Patient Visiting Rightsyes General Health: Blood Avoidance/Restrictionsnone Previous Transfusion Reactionno Sleep Aids/Routinesleep mask Weight in kg136.1 kilogram(s) Weight in hkk898 pound(s) Weight Methodactual (measured) Scale Typestanding Height in cm154.6 centimeter(s) Height in feet5 feet Height in inches0.9 inch(es) Height Methodstated BMI (kg/m2)56.942 square meter RSP Based Care: Recent Change in Mood/Behaviordenies Major Change/Loss/Stressor/Fearsde nies How would you like to participate in your careI want to be fixed . What is the number one concern for you during this hospitalizationsame What is the most important thing we can do to support you during this hospitalizationsame Is there anything we need to know to best care for yousame Hobbiessports Substance: Current or Former Substance Use never: Cigarette/Tobacco, e-Cigarette/Vaping, Street Drugs YES: Alcohol Alcohol Use Statuscurrent alcohol Alcohol Frequencymonthly or less Alcohol Typeliquor Problems Related to Alcohol U[facility] Health Mgmt: Symptoms/Conditions Managed at Homecardiovascular; respiratory Cardiovascular Symptoms/Conditionsdysrhythm ia Cardiovascular Management Strategiesmedication therapy; routine screening; fluid modification Cardiovascular Managementmanaged Respiratory Symptoms/ConditionsCOPD Respiratory Management StrategiesCPAP Respiratory Managementmanaged Barriers to Managing Healthnone Relationship/Environ: Significant Exposurenone Resource/Environmental Concernsnone Primary Source of Support/Comfortspouse Lives Withspouse Living Arrangementscondominium Services Anticipated at Transitionnone Anticipated Transition [place] Significant IndicatorsComplete Information Review: Allergies, Home Meds and Significant Events have been Reviewed and Verified with Patient/Familyno ALLERGY, INTOLERANCE, ADVERSE EVENT: Allergies: No Known Allergies: Active Electronic Signatures: Arline West (MARIS) (Signed 14-Feb-2020 07:58) Authored: Initial Info, General Health, RSP Based Care, Substance, Health Mgmt, Relationship/Environ, Additional Information Last Updated: 14-Feb-2020 07:58 by Arline West (MARIS) Normal [facility] THYROXINE,FREEon 02-14-2020 THYROXINE,FREE 1.00 ng/dL Normal 0.61 - 1.12 [facility] Comment on above: Result Comment: Thyr oxine Free testing is performed using different testing methodology at [facility] than at other [facility]. Direct result comparisons should only be made within the same method. . Biotin can cause falsely elevated free T4 results. Patients taking a Biotin dose of up to 10 mg/day should refrain from taking Biotin for 24 hours before sample collection. Patient taking a Biotin dose of >10 mg/day should consult with their physician or the laboratory before the blood draw. Performed By: #### T SH2 #### [address] [id number] TSHon 02-14-2020 TSH Qn 3.72 m[IU]/L Normal 0.44 - 3.98 [facility] Comment on above: Result Comment: TSH testing is performed using different testing methodology at [facility] than at other [facility]. Direct result comparisons should only be made within the same method. Performed By: #### T SH2 #### [address] [id number] Echocardiogramon 01-27-2020 Echocardiography [facility] [place] [address], [address], [place], [place] [address] TRANSTHORACIC ECHOCARDIOGRAM REPORT Patient Name: KOJO RAUSCH Reading Physician: [id number] Zachary Cunha MD, [facility] Study Date: 01/27/2020 Referring Physician: [id number] Bianka Damon MD MRN/PID: [id number] PCP: [id number] Angie Moran MD Accession/Order#: [id number] Department Location: [facility] [facility] Date of : 1955 Fellow: Gender: M Nurse: Admit Date: Sheet Metal Worker: Kathie Khan RDMS, RCS, RVS Height: 175.26 cm CC Report to: Weight: 135.63 kg Study Type: Echocardiogram BSA: 2.45 m2 Diagnosis/ICD: I48.0-Paroxysmal atrial fibrillation Indication: Paroxysmal Atrial Fib., CAD, HTN, Hyperlipidemia, s/p AK/PTCA Procedure/CPT: Echo Complete w Full Doppler-02020 Study Detail: The following Echo studies were performed: 2D, M-Mode, Doppler and color flow. PHYSICIAN INTERPRETATION: Left Ventricle: The left ventricular systolic function is normal. There are no regional wall motion abnormalities. The left ventricular cavity size is normal. The left ventricular septal wall thickness is mildly increased. There is mildly increased left ventricular posterior wall thickness. Spectral Doppler shows a normal pattern of left ventricular diastolic filling. Left Atrium: The left atrium is mildly dilated. Right Ventricle: The right ventricle is normal in size. There is normal right ventricular global systolic function. Right Atrium: The right atrium is mildly dilated. Aortic Valve: The aortic valve is trileaflet. There is no evidence of aortic valve regurgitation. The peak instantaneous gradient of the aortic valve is 14.0 mmHg. The mean gradient of the aortic valve is 9.0 mmHg. Mitral Valve: The mitral valve is normal in structure. There is mild mitral valve regurgitation. Tricuspid Valve: The tricuspid valve is structurally normal. There is mild to moderate tricuspid regurgitation. Pulmonic Valve: The pulmonic valve is structurally normal. There is trace pulmonic valve regurgitation. Pericardium: There is no pericardial effusion noted. Aorta: The aortic root is normal. Systemic Veins: The inferior vena cava appears to be of normal size. CONCLUSIONS: Patient's in atrial fibrillation with a controlled ventricular rate 1. Left ventricle shows mild concentric LVH without dilatation with preserved systolic function with an estimated ejection fraction range of 6065% without apparent regional wall motion abnormalities 2. Probably normal LV diastolic filling pattern for the presence of atrial fib 3. Normal right ventricular size and function 4. Structurally normal aortic valve for age with no stenosis or insufficiency, peak velocity is 1.9 5. Structurally normal mitral valve for age with 1-2+ mitral regurgitation 6. Structurally normal tricuspid valve for age with 2+ tricuspid insufficiency with an RVSP of 52 base anterior velocity 3.24 7. Normal pulmonic valve with trivial insufficiency 8. Mild left and right atrial enlargement with an LA diameter of 5.2 and index of 30.0 9. Normal aortic root and ascending aorta 10. Normal inferior vena cava 11. No apparent pericardial effusion or echo producing mass or intracardiac shunt 12. No comparison tracing and there for comment Please excuse any errors in grammar or translation related to this dictation. Voice recognition software was utilized to prepare this document. QUANTITATIVE DATA SUMMARY: 2D MEASUREMENTS: Normal Ranges: Ao Root d: 3.60 cm (2.0-3.7cm) LAs: 5.15 cm (2.7-4.0cm) RVIDd: 3.10 cm (0.9-3.6cm) IVSd: 1.40 cm (0.6-1.1cm) LVPWd: 1.40 cm (0.6-1.1cm) LVIDd: 5.70 cm (3.9-5.9cm) LVIDs: 3.70 cm LV Mass Index: 145.9 g/m2 LV % FS 35.1 % AORTA MEASUREMENTS: Normal Ranges: Asc Ao, d: 2.90 cm (2.1-3.4cm) LV SYSTOLIC FUNCTION BY 2D PLANIMETRY (MOD): Normal Ranges: EF-A4C View: 65.4 % (>55%) LV DIASTOLIC FUNCTION: Normal Ranges: MV Peak E: 1.22 m/s (0.7-1.2 m/s) MV lateral e' 0.14 m/s MV medial e' 0.08 m/s E/e' Ratio: 8.70 (<8.0) MITRAL INSUFFICIENCY: Normal Ranges: MR VTI: 153.67 cm MR Vmax: 462.67 cm/s MR Alias Cristofer: 38.5 cm/s MR Volume: 80.31 ml MR Flow Rt: 241.80 ml/s MR EROA: 0.52 cm2 AORTIC VALVE: Normal Ranges: AoV Vmax: 1.87 m/s (<1.7m/s) AoV Peak P.0 mmHg (<20mmHg) AoV Mean P.0 mmHg (1.7-11.5mmHg) LVOT Max Cristofer: 0.97 m/s (<1.1m/s) AoV VTI: 42.20 cm (18-25cm) LVOT VTI: 23.20 cm LVOT Diameter: 2.20 cm (1.8-2.4cm) AoV Area, VTI: 2.09 cm2 (2.5-5.5cm2) AoV Area,Vmax: 1.97 cm2 (2.5-4.5cm2) AoV Dimensionless Index: 0.55 TRICUSPID VALVE/RVSP: Normal Ranges: Peak TR Velocity: 3.24 m/s RV Syst Pressure: 45.0 mmHg (< 30mmHg) PULMONIC VALVE: Normal Ranges: PV Max Cristofer: 0.8 m/s (0.6-0.9m/s) PV Max P.4 mmHg [id number] Zachary Cunha MD, [facility] Electronically signed on 01/30/2020 at 2:18:[address] [facility] Coding Summaryon 04-01-2017 Coding Summary CODING DATE: 017 FINAL [facility] STATUS: Home PAYOR: [facility] APC DESCRIPTION 5523 Level 3 Imaging without Contrast ADMIT DX: REASON FOR VISIT DX: M23.92 Unspecified internal derangement of left knee FINAL DX: PRINCIPAL: M17.12 Unilateral primary osteoarthritis, left knee SECONDARY: S83.242A Other tear of medial meniscus, current injury, left knee, initial encounter S83.282A Other tear of lateral meniscus, current injury, left knee, initial encounter S83.412A Sprain of medial collateral ligament of left knee, initial encounter S83.422A Sprain of lateral collateral ligament of left knee, initial encounter PYMT PROC APC STAT DESCRIPTION DOCTOR NAME DATE NOTE: The code number assigned matches the documented diagnosis and / or procedure in the patient's chart. However, the narrative phrase printed from the coding software may appear abbreviated, or result in slightly different terminology. Coded By: Carolann Street Date Saved: 04/01/2017 10:05 am [facility] Rad - MRI Reporton 7 Rad - MRI Report [id number] Normal [facility] MRI LE Joint w/o Contrast [place] 03-31-2017 MRI LE Joint w/o Contrast Left MRI LOWER EXTREMITY JOINT WITHOUT CONTRAST LEFTCLINICAL DATA: Left medial knee pain on 03/21/2017, relieved with cortisoneinjection on 03/24/2017, clinically suspected internal derangement of theleft knee.MRI examination of the left knee was performed without the use of intravenouscontrast. Multiple pulse echo sequences were utilized. Images were obtainedin axial, sagittal and coronal projections.There is severe thinning of the articular cartilage of the lateral patellarfacet superiorly. There is mild subchondral bone marrow edema in thesuperior aspect of the lateral patellar facet. Mild patellofemoralcompartment joint space narrowing is present. Severe thinning of thearticular cartilage of the trochlea is noted centrally and laterally.Mild osteophyte formation arises from the distal femur and proximal tibia.There is mild medial femoral tibial compartment narrowing. Severe thinningof the central to slightly posterior articular cartilage of the medialfemoral condyle is present. There is at least moderate thinning of thearticular cartilage of the medial tibial plateau. There is mild subchondralbone marrow edema along the anterior aspect of the lateral femoral condyle.A subcentimeter benign appearing cystic structure is noted in the lateralaspect of the tibial spines.Extensor mechanism appears unremarkable.A small radial tear of the posterior horn of the medial meniscus is noted atthe junction with the meniscal body.A horizontal tear of the body and anterior horn of the lateral meniscusextends to the inferior articular surface.Mild edema and fluid surround the medial collateral ligament.There is moderate thickening and heterogeneity of the proximal fibers of thelateral collateral ligament which is surrounded by edema. Lateral capsularedema is noted. There is edema surrounding the intact iliotibial band with asmall amount of fluid deep to the iliotibial band.Anterior cruciate ligament appears unremarkable.Posterior cruciate ligament appears unremarkable.Musculature appears unremarkable.Moderate subcutaneous edema is noted along the lateral aspect of the knee.There is mild subcutaneous edema anterior to the intact patellar tendon.No definite acute fracture or dislocation is seen.IMPRESSION:1. MRI EXAMINATION OF THE LEFT KNEE DEMONSTRATES TRICOMPARTMENTALOSTEOARTHRIT IC DEGENERATIVE CHANGES, GREATEST IN THE MEDIAL FEMORAL TIBIALAND PATELLOFEMORAL COMPARTMENTS.2. MEDIAL MENISCAL TEAR DESCRIBED.3. LATERAL MENISCAL TEAR DESCRIBED.4. GRADE 1 SPRAIN OF THE MEDIAL COLLATERAL LIGAMENT.5. MODERATE SPRAIN OF THE PROXIMAL FIBERS OF THE LATERAL COLLATERAL LIGAMENT.6. EDEMA AND FLUID SURROUND THE ILIOTIBIAL BAND SUGGESTIVE OF ILIOTIBIALBAND SYNDROME. THIS IS ASSOCIATED WITH LATERAL CAPSULAR EDEMA.BRIDGETT Sebastian #: [id number]: 03/31/2017T: 03/31/2017 Final Dictated by: Gaston Thrasher MD SDictated DT/TM: 03/31/17 3:22Signed (Electronic Signature): Gaston Thrasher MD 03/31/17 4:43 pmTechnologist: DARRYL [facility] Provider Orderson 03-27-2017 Provider Orders [id number] [facility] Vital Signs Date Time Vital Sign Value Performing Clinician Facility 12-10-2023 14:41-0400 Body height 175.[address] [facility] 12-10-2023 14:41-0400 Body mass index (BMI) [Ratio] 43.2 kg/m2 [facility] 12-10-2023 14:41-0400 Body temperature 97.8 [degF] [facility] 12-10-2023 14:41-0400 Body weight 132.[address] [facility] 12-10-2023 14:41-0400 Diastolic blood pressure 78 mm[Hg] [facility] 12-10-2023 14:41-0400 Heart rate 87 /min [facility] 12-10-2023 14:41-0400 SaO2% (BldA) [Mass fraction] 92 % [facility] 12-10-2023 14:41-0400 Systolic blood pressure 132 mm[Hg] [facility] 12-02-2023 12:49-0400 Body height 175.[address] [facility] 12-02-2023 12:49-0400 Body mass index (BMI) [Ratio] 44.7 kg/m2 [facility] 12-02-2023 12:49-0400 Body weight 137.[address] [facility] 08-27-2023 13:40-0400 Body height 175.26 cm MD Angie Moran Work Phone: [facility] 08-27-2023 13:40-0400 Body mass index (BMI) [Ratio] 45.3 kg/m2 MD Angie Moran Work Phone: [facility] 08-27-2023 13:40-0400 Body weight 139.25 kg MD Angie Moran Work Phone: [facility] 08-14-2023 12:30-0400 Diastolic blood pressure 80 mm[Hg] Ilene Rolbes MD Work Phone: [facility] 08-14-2023 12:30-0400 Heart rate 62 /min Ilene Robles MD Work Phone: [facility] 08-14-2023 12:30-0400 Systolic blood pressure 120 mm[Hg] Ilene Robles MD Work Phone: [facility] 07-20-2023 13:43-0400 Body height 175.[address] [facility] 07-20-2023 13:43-0400 Body mass index (BMI) [Ratio] 43.9 kg/m2 [facility] 07-20-2023 13:43-0400 Body weight 135.[address] [facility] 07-20-2023 13:43-0400 Diastolic blood pressure 88 mm[Hg] [facility] 07-20-2023 13:43-0400 Heart rate 70 /min [facility] 07-20-2023 13:43-0400 SaO2% (BldA) [Mass fraction] 94 % [facility] 07-20-2023 13:43-0400 Systolic blood pressure 138 mm[Hg] [facility] 07-14-2023 12:50-0400 Body height 176.5 cm Bianka Damon MD Work Phone: [facility] 07-14-2023 12:50-0400 Body mass index (BMI) [Ratio] 44.09 kg/m2 Bianka Damon MD Work Phone: [facility] 07-14-2023 12:50-0400 Body weight 137.4 kg Bianka Damon MD Work Phone: [facility] 07-14-2023 12:50-0400 Diastolic blood pressure 70 mm[Hg] Bianka Damon MD Work Phone: [facility] 07-14-2023 12:50-0400 Heart rate 60 /min Bianka Damon MD Work Phone: [facility] 07-14-2023 12:50-0400 Systolic blood pressure 116 mm[Hg] Bianka Damon MD Work Phone: [facility] 04-23-2023 13:15-0500 Body height 175.26 cm Angie Moran Other [facility] 04-23-2023 13:15-0500 Body mass index (BMI) [Ratio] 44.74 kg/m2 Angie Moran Other [facility] Other 04-23-2023 13:15-0500 Body temperature 98.1 [degF] Angie Moran Other [facility] Other 04-23-2023 13:15-0500 Body weight 137.44 kg Angie Moran Other [facility] Other 04-23-2023 13:15-0500 Body weight 137.[address] [facility] 04-23-2023 13:15-0500 Diastolic blood pressure 76 mm[Hg] Angie Moran Other [facility] 04-23-2023 13:15-0500 SaO2% (BldA) [Mass fraction] 94 % Angie Moran Other [facility] Other 04-23-2023 13:15-0500 Systolic blood pressure 124 mm[Hg] Angie Moran Other [facility] 03-04-2023 09:00-0500 Body height 175.26 cm Juan Pina Other [facility] Other 03-04-2023 09:00-0500 Body mass index (BMI) [Ratio] 44.59 kg/m2 Juan Pina Other [facility] Other 03-04-2023 09:00-0500 Body temperature 97.8 [degF] Juan Pina Other [facility] Other 03-04-2023 09:00-0500 Body weight 136.99 kg Juan Pina Other [facility] Other 03-04-2023 09:00-0500 Diastolic blood pressure 82 mm[Hg] Juan Pina Other [facility] Other 03-04-2023 09:00-0500 SaO2% (BldA) [Mass fraction] 93 % Juan Pina Other [facility] Other 03-04-2023 09:00-0500 Systolic blood pressure 126 mm[Hg] Juan Pina Other [facility] Other 03-03-2023 12:46-0500 Body height 176.5 cm Bianka Damon MD Work Phone: [facility] 03-03-2023 12:46-0500 Body mass index (BMI) [Ratio] 44.69 kg/m2 Bianka Damon MD Work Phone: [facility] 03-03-2023 12:46-0500 Body weight 139.25 kg Bianka Damon MD Work Phone: [facility] 03-03-2023 12:46-0500 Diastolic blood pressure 84 mm[Hg] Bianka Damon MD Work Phone: [facility] 03-03-2023 12:46-0500 Heart rate 72 /min Bianka Damon MD Work Phone: [facility] 03-03-2023 12:46-0500 Systolic blood pressure 146 mm[Hg] Bianka Damon MD Work Phone: [facility] 02-19-2023 14:15-0400 Body height 175.26 cm Angie Moran Other [facility] Other 02-19-2023 14:15-0400 Body mass index (BMI) [Ratio] 44.68 kg/m2 Angie Moran Other [facility] Other 02-19-2023 14:15-0400 Body temperature 97.6 [degF] Angie Moran Other [facility] Other 02-19-2023 14:15-0400 Body weight 137.26 kg Angie Moran Other [facility] Other 02-19-2023 14:15-0400 Diastolic blood pressure 80 mm[Hg] Angie Moran Other [facility] Other 02-19-2023 14:15-0400 SaO2% (BldA) [Mass fraction] 94 % Angie Moran Other [facility] Other 02-19-2023 14:15-0400 Systolic blood pressure 120 mm[Hg] Angie Moran Other [facility] Other 12-09-2022 08:49-0400 Body height 176.53 cm Angie Arreagaon Work Phone: [facility] [address] DO Work Phone: 12-09-2022 08:49-0400 Body mass index (BMI) [Ratio] 44.68 kg/m2 Angie Crenshaw Dean Work Phone: [facility] [address] DO Work Phone: 12-09-2022 08:49-0400 Body surface area Derived from formula 2.49 m2 Angie Arreagaon Work Phone: [facility] [address] DO Work Phone: 12-09-2022 08:49-0400 Body weight 139.23 kg Angie Arreagaon Work Phone: [facility] [address] DO Work Phone: 12-09-2022 08:49-0400 Diastolic blood pressure 80 mm[Hg] Angie Arreagaon Work Phone: [facility] [address] DO Work Phone: 12-09-2022 08:49-0400 Heart rate 56 /min Angie Arreagaon Work Phone: [facility] [address] DO Work Phone: 12-09-2022 08:49-0400 Systolic blood pressure 152 mm[Hg] Angie Arreagaon Work Phone: [facility] [address] DO Work Phone: 09-19-2022 13:42-0400 Body height 176.53 cm Angie Arreagaon Work Phone: [facility] [address] DO Work Phone: 09-19-2022 13:42-0400 Body mass index (BMI) [Ratio] 44.55 kg/m2 Angie Crenshaw Dean Work Phone: [facility] [address] DO Work Phone: 09-19-2022 13:42-0400 Body surface area Derived from formula 2.49 m2 Angie Crenshaw Dean Work Phone: [facility] 305 DO Work Phone: 09-19-2022 13:42-0400 Body weight 138.83 kg Angie Crenshaw Dean Work Phone: [facility] [address] DO Work Phone: 09-19-2022 13:42-0400 Diastolic blood pressure 72 mm[Hg] Angie Crenshaw Dean Work Phone: [facility] [address] DO Work Phone: 09-19-2022 13:42-0400 Heart rate 56 /min Angie Crenshaw Dean Work Phone: [facility] [address] DO Work Phone: 09-19-2022 13:42-0400 Systolic blood pressure 126 mm[Hg] Angie Crenshaw Dean Work Phone: [facility] [address] DO Work Phone: 09-02-2022 12:58-0400 Body height 176.53 cm Angie Crenshaw Dean Work Phone: [facility] [address] DO Work Phone: 09-02-2022 12:58-0400 Body mass index (BMI) [Ratio] 45.66 kg/m2 Angie Arreagaon Work Phone: [facility] 305 DO Work Phone: 09-02-2022 12:58-0400 Body surface area Derived from formula 2.51 m2 Angie Arreagaon Work Phone: [facility] [address] DO Work Phone: 09-02-2022 12:58-0400 Body weight 142.29 kg Angie Crenshaw Dean Work Phone: [facility] [address] DO Work Phone: 09-02-2022 12:58-0400 Diastolic blood pressure 72 mm[Hg] Angie Crenshaw Moran Work Phone: [facility] 305 DO Work Phone: 09-02-2022 12:58-0400 Heart rate 58 /min Angie Arreagaon Work Phone: [facility] 305 DO Work Phone: 09-02-2022 12:58-0400 Systolic blood pressure 132 mm[Hg] Angie Crenshaw Moran Work Phone: [facility] [address] DO Work Phone: 08-28-2022 10:00-0400 Body height 175.26 cm Kaylynn Reisdileep Other [facility] Other 08-28-2022 10:00-0400 Body mass index (BMI) [Ratio] 45.77 kg/m2 Kaylynn Dominik Other [facility] Other 08-28-2022 10:00-0400 Body temperature 97.2 [degF] Kaylynn Lehman Other [facility] Other 08-28-2022 10:00-0400 Body weight 140.62 kg Kaylynn Dominik Other [facility] Other 08-28-2022 10:00-0400 Diastolic blood pressure 74 mm[Hg] Kaylynn Lehman Other [facility] Other 05-11-2023 10:00-0400 SaO2% (BldA) [Mass fraction] 91 % Kaylynn Lehman Other [facility] Other 08-28-2022 10:00-0400 Systolic blood pressure 116 mm[Hg] Kaylynn Lehman Other [facility] Other 08-08-2022 12:22-0400 Body height 175.26 cm Angie Arreagaon Work Phone: [facility] [address] DO Work Phone: 08-08-2022 12:22-0400 Body mass index (BMI) [Ratio] 45.78 kg/m2 Angie Moran Work Phone: [facility] [address] DO Work Phone: 08-08-2022 12:22-0400 Body surface area Derived from formula 2.49 m2 Angie Arreagaon Work Phone: [facility] [address] DO Work Phone: 08-08-2022 12:22-0400 Body weight 140.62 kg Angie Arreagaon Work Phone: [facility] [address] DO Work Phone: 08-08-2022 12:22-0400 Diastolic blood pressure 72 mm[Hg] Angie Arreagaon Work Phone: [facility] [address] DO Work Phone: 08-08-2022 12:22-0400 Heart rate 50 /min Angie Moran Work Phone: [facility] [address] DO Work Phone: 08-08-2022 12:22-0400 Systolic blood pressure 132 mm[Hg] Angie Moran Work Phone: [facility] [address] DO Work Phone: 07-30-2022 10:00-0400 Body height 175.26 cm Kaylynn Lehman Other [facility] Other 07-30-2022 10:00-0400 Body mass index (BMI) [Ratio] 45.92 kg/m2 Kaylynn Lehman Other [facility] Other 07-30-2022 10:00-0400 Body temperature 97.3 [degF] Kaylynn Lehman Other [facility] Other 07-30-2022 10:00-0400 Body weight 141.07 kg Kaylynn Lehman Other [facility] Other 07-30-2022 10:00-0400 Diastolic blood pressure 68 mm[Hg] Kaylynn Lehman Other [facility] Other 07-30-2022 10:00-0400 SaO2% (BldA) [Mass fraction] 91 % Kaylynn Lehman Other [facility] Other 07-30-2022 10:00-0400 Systolic blood pressure 118 mm[Hg] Kaylynn Lehman Other [facility] Other 03-11-2022 10:00-0500 Body height 175.26 cm Angie Moran Other [facility] Other 03-11-2022 10:00-0500 Body mass index (BMI) [Ratio] 45.92 kg/m2 Angie Moran Other [facility] Other 03-11-2022 10:00-0500 Body weight 141.07 kg Angie Moran Other [facility] Other 03-11-2022 10:00-0500 Diastolic blood pressure 72 mm[Hg] Angie Moran Other [facility] Other 03-11-2022 10:00-0500 SaO2% (BldA) [Mass fraction] 92 % Angie Moran Other [facility] Other 03-11-2022 10:00-0500 Systolic blood pressure 118 mm[Hg] Angie Moran Other [facility] Other 02-26-2022 09:30-0500 Body height 175.26 cm Kaylynn Lehman Other [facility] Other 02-26-2022 09:30-0500 Body mass index (BMI) [Ratio] 44.89 kg/m2 Kaylynn Lehman Other [facility] Other 02-26-2022 09:30-0500 Body temperature 97.7 [degF] Kaylynn Lehman Other [facility] Other 02-26-2022 09:30-0500 Body weight 137.89 kg Kaylynn Dominik Other [facility] Other 02-26-2022 09:30-0500 Diastolic blood pressure 64 mm[Hg] Kaylynn Lehman Other [facility] Other 02-26-2022 09:30-0500 SaO2% (BldA) [Mass fraction] 95 % Kaylynn Lehman Other [facility] Other 02-26-2022 09:30-0500 Systolic blood pressure 102 mm[Hg] Kaylynn Lehman Other [facility] Other 01-29-2022 09:30-0400 Body height 175.26 cm Kaylynn Lehman Other [facility] Other 01-29-2022 09:30-0400 Body mass index (BMI) [Ratio] 44.89 kg/m2 Kaylynn Lehman Other [facility] Other 01-29-2022 09:30-0400 Body temperature 96.8 [degF] Kaylynn Lehman Other [facility] Other 01-29-2022 09:30-0400 Body weight 137.89 kg Kaylynn Lehman Other [facility] Other 01-29-2022 09:30-0400 Diastolic blood pressure 60 mm[Hg] Kaylynn Lehman Other [facility] Other 01-29-2022 09:30-0400 SaO2% (BldA) [Mass fraction] 91 % Kaylynn Lehman Other [facility] Other 01-29-2022 09:30-0400 Systolic blood pressure 100 mm[Hg] Kaylynn Lehman Other [facility] Other 01-07-2022 19:58-0400 Body height 177.8 cm MD Angie Moran Work Phone: [facility] 01-07-2022 19:58-0400 Body mass index (BMI) [Ratio] 43 kg/m2 MD Angie Moran Work Phone: [facility] 01-07-2022 19:58-0400 Body weight 136.07 kg MD Angie Moran Work Phone: [facility] 01-07-2022 14:42-0400 Diastolic blood pressure 73 mm[Hg] MD Angie Moran Work Phone: [facility] 01-07-2022 14:42-0400 Heart rate 43 /min MD Angie Moran Work Phone: [facility] 01-07-2022 14:42-0400 Respiratory rate 18 /min MD Angie Moran Work Phone: [facility] 01-07-2022 14:42-0400 SaO2% (BldA) [Mass fraction] 91 % MD Angie Moran Work Phone: [facility] 01-07-2022 14:42-0400 Systolic blood pressure 120 mm[Hg] MD Angie Moran Work Phone: [facility] 01-07-2022 13:42-0400 Inhaled oxygen flow rate 10 L/min MD Angie Moran Work Phone: [facility] 01-07-2022 10:55-0400 Body height 177.8 cm MD Angie Moran Work Phone: [facility] 01-07-2022 10:55-0400 Body temperature 98.2 [degF] MD Angie Moran Work Phone: [facility] 01-07-2022 10:55-0400 Body weight 136.07 kg MD Angie Moran Work Phone: [facility] 01-02-2022 10:30-0400 Body height 175.26 cm Juan Pina Other [facility] Other 01-02-2022 10:30-0400 Body mass index (BMI) [Ratio] 44.89 kg/m2 Juan Pina Other [facility] Other 01-02-2022 10:30-0400 Body temperature 97 [degF] Juan Pina Other [facility] Other 01-02-2022 10:30-0400 Body weight 137.89 kg Juan Pina Other [facility] Other 01-02-2022 10:30-0400 Diastolic blood pressure 68 mm[Hg] Juan Youngangus Other [facility] Other 01-02-2022 10:30-0400 SaO2% (BldA) [Mass fraction] 89 % Juan Youngangus Other [facility] Other 01-02-2022 10:30-0400 Systolic blood pressure 108 mm[Hg] Juan oYungangus Other [facility] Other 11-05-2021 10:00-0400 Body height 175.26 cm Angie Moran Other [facility] Other 11-05-2021 10:00-0400 Body mass index (BMI) [Ratio] 44.89 kg/m2 Angie Moran Other [employer] Other 11-05-2021 10:00-0400 Body weight 137.89 kg Angie Moran Other [employer] Other 11-05-2021 10:00-0400 Diastolic blood pressure 70 mm[Hg] Angie Moran Other [employer] Other 11-05-2021 10:00-0400 Systolic blood pressure 124 mm[Hg] Angie Moran Other [employer] Other 10-18-2021 12:13-0400 Body height 175.26 cm Angie Moran Work Phone: [facility] 320 DO Work Phone: 10-18-2021 12:13-0400 Body mass index (BMI) [Ratio] 45.78 kg/m2 Angie Arreagaon Work Phone: [facility] 320 DO Work Phone: 10-18-2021 12:13-0400 Body surface area Derived from formula 2.49 m2 Angie Moran Work Phone: [facility] 320 DO Work Phone: 10-18-2021 12:13-0400 Body weight 140.62 kg Angie Moran Work Phone: [facility] 320 DO Work Phone: 10-18-2021 12:13-0400 Diastolic blood pressure 64 mm[Hg] Angie Moran Work Phone: [facility] 320 DO Work Phone: 10-18-2021 12:13-0400 Heart rate 48 /min Angie Moran Work Phone: [facility] 320 DO Work Phone: 10-18-2021 12:13-0400 Systolic blood pressure 120 mm[Hg] Angie Moran Work Phone: [facility] 320 DO Work Phone: 08-05-2021 15:30-0400 Body height 175.26 cm Angie Moran Other [facility] Other 08-05-2021 15:30-0400 Body mass index (BMI) [Ratio] 44.59 kg/m2 Angie Moran Other [facility] Other 08-05-2021 15:30-0400 Body weight 136.99 kg Angie Moran Other [employer] Other 08-05-2021 15:30-0400 Diastolic blood pressure 74 mm[Hg] Angie Moran Other [employer] Other 08-05-2021 15:30-0400 Respiratory rate 18 /min Angie Moran Other [employer] Other 08-05-2021 15:30-0400 SaO2% (BldA) [Mass fraction] 93 % Angie Moran Other [employer] Other 08-05-2021 15:30-0400 Systolic blood pressure 128 mm[Hg] Angie Moran Other [employer] Other 07-15-2021 10:00-0400 Body height 175.26 cm Angie Moran Other [employer] Other 07-15-2021 10:00-0400 Body mass index (BMI) [Ratio] 43.85 kg/m2 Angie Moran Other [employer] Other 07-15-2021 10:00-0400 Body weight 134.72 kg Angie Moran Other [employer] Other 07-15-2021 10:00-0400 Diastolic blood pressure 68 mm[Hg] Angie Moran Other [employer] Other 07-15-2021 10:00-0400 Systolic blood pressure 114 mm[Hg] Angie Moran Other [employer] Other 04-04-2021 17:15-0500 Body height 175.26 cm Angie Moran Other [employer] Other 04-04-2021 17:15-0500 Body mass index (BMI) [Ratio] 44.59 kg/m2 Angie Moran Other [facility] Other 04-04-2021 17:15-0500 Body weight 136.99 kg Angie Moran Other [facility] Other 04-04-2021 17:15-0500 Diastolic blood pressure 64 mm[Hg] Angie Moran Other [facility] Other 04-04-2021 17:15-0500 Systolic blood pressure 118 mm[Hg] Angie Moran Other [facility] Other 03-01-2021 08:09-0500 Body height 175.26 cm Angie Arreagaon Work Phone: [facility] 320 DO Work Phone: 03-01-2021 08:09-0500 Body mass index (BMI) [Ratio] 45.34 kg/m2 Angie Arreagaon Work Phone: [facility] 320 DO Work Phone: 03-01-2021 08:09-0500 Body surface area Derived from formula 2.48 m2 Angie Moran Work Phone: [facility] 320 DO Work Phone: 03-01-2021 08:09-0500 Body weight 139.26 kg Angie Arreagaon Work Phone: [facility] 320 DO Work Phone: 03-01-2021 08:09-0500 Diastolic blood pressure 72 mm[Hg] Angie Arreagaon Work Phone: [facility] 320 DO Work Phone: 03-01-2021 08:09-0500 Heart rate 48 /min Angie Moran Work Phone: [facility] [facility] DO Work Phone: 03-01-2021 08:09-0500 Systolic blood pressure 132 mm[Hg] Angie Moran Work Phone: [facility] [facility] DO Work Phone: 12-17-2020 17:30-0400 Body height 175.26 cm Angie Moran Other [employer] Other 12-17-2020 17:30-0400 Body mass index (BMI) [Ratio] 44 kg/m2 Angie Moran Other [employer] Other 12-17-2020 17:30-0400 Body weight 135.17 kg Angie Moran Other [employer] Other 12-17-2020 17:30-0400 Diastolic blood pressure 78 mm[Hg] Angie Moran Other [employer] Other 12-17-2020 17:30-0400 SaO2% (BldA) [Mass fraction] 90 % Angie Moran Other [employer] Other 12-17-2020 17:30-0400 Systolic blood pressure 128 mm[Hg] Angie Moran Other [employer] Other Encounters Encounter Date Encounter Type Care Provider Facility Start: 12-14-2023 End: 12-14-2023 ambulatory MELITA ELLIOTT Not Available Start: 12-11-2023 End: 12-11-2023 Patient encounter procedure MD Angie Moran Work Phone: [facility] [place] Work Phone: Start: 12-11-2023 End: 12-11-2023 ambulatory MD Angie Moran Work Phone: [facility] Work Phone: Start: 12-10-2023 End: 12-10-2023 ambulatory [facility] Work Phone: Start: 12-10-2023 End: 12-10-2023 Patient encounter procedure [facility] [place] [facility] Work Phone: Start: 12-02-2023 End: 12-02-2023 ambulatory [facility] Work Phone: Start: 12-02-2023 End: 12-02-2023 Patient encounter procedure [facility] Work Phone: Start: 08-27-2023 End: 08-27-2023 ambulatory MD Angie Moran Work Phone: [facility] Work Phone: Start: 08-27-2023 End: 08-27-2023 Patient encounter procedure MD Angie Moran Work Phone: [facility] Work Phone: Start: 08-14-2023 End: 08-14-2023 ambulatory [facility] Ambulatory Start: 08-14-2023 End: 08-14-2023 Office outpatient visit 25 minutes Ilene Robles MD Work Phone: [facility] Comment on above: Longstanding persist ent atrial fibrillation (Multi) (Primary Dx); Bradycardia; Primary hypertension; History of AK (myocardial infarction); Mixed hyperlipidemia; CAD S/P percutaneous coronary angioplasty; Never smoked tobacco; Morbid obesity with BMI of 40.0-44.9, adult (Multi); Anticoagulated; Encounter for medication review and counseling; Encounter to discuss treatment options Start: 07-20-2023 End: 07-20-2023 ambulatory [facility] Work Phone: Start: 07-20-2023 End: 07-20-2023 Patient encounter procedure [facility] Work Phone: Start: 07-14-2023 End: 07-15-2023 [facility] Start: 07-14-2023 End: 07-14-2023 ambulatory [facility] Ambulatory Start: 07-14-2023 End: 07-14-2023 Office outpatient visit 25 minutes Bianka Damon MD Work Phone: [facility] Comment on above: CAD S/P percutaneous coronary angioplasty; History of AK (myocardial infarction); Primary hypertension; Mixed hyperlipidemia; Longstanding persistent atrial fibrillation (CMS/HCC); Morbid obesity with BMI of 40.0-44.9, adult (CMS/HCC); Never smoked tobacco Start: 04-23-2023 End: 04-23-2023 ambulatory Angie Moran Other [employer] Other Start: 04-23-2023 Office outpatient vi sit 15 minutes Angie Moran [facility] Start: 04-23-2023 End: 04-23-2023 Patient encounter procedure [facility] Work Phone: Start: 03-11-2023 End: 03-11-2023 ambulatory Angie Moran Other [employer] Other Start: 03-11-2023 Encounter by danyel Moran [facility] Start: 03-08-2023 End: 03-08-2023 ambulatory Angie Moran Other [employer] Other Start: 03-08-2023 Encounter by danyel Moran [facility] Start: 03-04-2023 End: 03-04-2023 ambulatory Juan Pina Other [employer] Other Start: 03-04-2023 Office outpatient vi sit 15 minutes Juan Pina [facility] Vascular Surgery Start: 03-03-2023 End: 03-03-2023 ambulatory [facility] Ambulatory Start: 03-03-2023 End: 03-03-2023 Office outpatient visit 15 minutes Bianka Damon MD Work Phone: [facility] Comment on above: CAD S/P percutaneous coronary angioplasty; History of AK (myocardial infarction); Primary hypertension; Mixed hyperlipidemia; Longstanding persistent atrial fibrillation ([facility]); High risk medication use; Anticoagulated; Morbid obesity with BMI of 40.0-44.9, adult ([facility]); Never smoked tobacco Start: 03-03-2023 End: 03-03-2023 Subsequent hospital visit by physician Catalina Clemente [facility] Comment on above: Permanent atrial fib rillation ([facility]/HCC) Start: 02-27-2023 (Flu Shot) Flu Shot Visits Anne Cowan [facility] Start: 02-27-2023 End: 02-27-2023 ambulatory Anne Cowan Other [employer] Other Start: 02-24-2023 End: 02-24-2023 ambulatory Angie Moran Other [employer] Other Start: 02-24-2023 Encounter by [employer] Angie Moran [facility] Start: 02-23-2023 End: 02-23-2023 Patient encounter procedure MD Angie Moran Work Phone: [facility] [place] Work Phone: Start: 02-23-2023 End: 02-23-2023 ambulatory MD Angie Moran Work Phone: [facility] Work Phone: Start: 02-22-2023 End: 02-22-2023 ambulatory Angie Moran Other [employer] Other Start: 02-22-2023 Encounter by [employer] Angie Moran [facility] Start: 02-19-2023 End: 02-19-2023 ambulatory Angie Moran Other [employer] Other Start: 02-19-2023 Office outpatient vi sit 25 minutes Angie Moran [facility] Start: 02-19-2023 Telephone encounter Angie THOMPSON [facility] Start: 12-09-2022 Office outpatient vi sit 25 minutes Angie Moran Work Phone: [facility] 305 DO Work Phone: Start: 12-09-2022 ambulatory [facility] Facility:[id number] Start: 11-13-2022 Rx Renewal Angie Crenshaw Chris roldan Work Phone: [facility] 320 DO Work Phone: Start: 10-20-2022 Rx Renewal Angie Crenshaw Chris roldan Work Phone: [facility] 250 DO Work Phone: Start: 10-17-2022 Rx Renewal Angie Crenshaw Chris roldan Work Phone: [facility] 250 DO Work Phone: Start: 10-14-2022 Shoe Stitcher Encounter Angie Moran Work Phone: [facility] 250 DO Work Phone: Start: 09-19-2022 Office outpatient vi sit 25 minutes Angie Moran Work Phone: [facility] 305 DO Work Phone: Start: 09-19-2022 ambulatory [facility] Facility:[id number] Start: 09-02-2022 ambulatory [facility] Facility:[id number] Start: 08-28-2022 End: 08-28-2022 Patient encounter procedure Kaylynn Dominik [facility] Start: 08-28-2022 End: 08-28-2022 ambulatory MD Angie Moran Work Phone: [facility] Other Start: 08-08-2022 Current tobacco non- user cad cap copd pv dm Angie Moran Work Phone: [facility] 320 DO Work Phone: Start: 08-08-2022 ambulatory ILENE ROBLES Facility:1 [id number] Start: 08-07-2022 End: 08-07-2022 ambulatory MD Angie Moran Work Phone: [facility] Work Phone: Start: 08-07-2022 End: 08-07-2022 Patient encounter procedure MD Angie Moran Work Phone: [facility] [place] Work Phone: Start: 07-30-2022 End: 07-30-2022 ambulatory Kaylynn Reismarcellao Other [employer] Other Start: 07-30-2022 Patient encounter procedure Kaylynn Rutdileep [facility] Start: 03-11-2022 End: 03-11-2022 ambulatory Angie Moran Other [employer] Other Start: 03-11-2022 Office outpatient vi sit 25 minutes Angie Moran [facility] Start: 03-01-2022 End: 03-01-2022 ambulatory Angie Moran Other [employer] Other Start: 03-01-2022 Encounter by danyel Moran [facility] Start: 02-26-2022 End: 02-26-2022 ambulatory Kaylynn Reismarcellajayme Other [employer] Other Start: 02-26-2022 Follow-up encounter Kaylynn Reisdileep [facility] Start: 02-13-2022 End: 02-13-2022 ambulatory Kaylynn Radhao Other [employer] Other Start: 02-13-2022 Telephone encounter Kaylynn Reismarcellao [facility] Start: 02-10-2022 End: 02-10-2022 ambulatory MD Angie Moran Work Phone: [facility] Work Phone: Start: 02-10-2022 End: 02-10-2022 Departed Referred MD Angie Moran Work Phone: [facility] [place] Start: 01-30-2022 End: 01-30-2022 ambulatory Juan Pina Other [employer] Other Start: 01-30-2022 Telephone encounter Juan peng [facility] Start: 01-29-2022 End: 01-29-2022 ambulatory Kaylynn Dominik Other [employer] Other Start: 01-29-2022 Follow-up encounter Kaylynn Dominik [facility] Start: 01-23-2022 ([facility] INJ) [facility] Injection Carissa Angeles [facility] Start: 01-23-2022 End: 01-23-2022 ambulatory MD Angie Moran Work Phone: [employer] Other Start: 01-23-2022 End: 01-23-2022 Patient encounter procedure MD Angie Moran Work Phone: [facility] Start: 01-13-2022 End: 01-13-2022 ambulatory Angie Moran Other [employer] Other Start: 01-13-2022 Telephone encounter Angie manuel [facility] [place] [facility] Start: 01-10-2022 End: 01-10-2022 ambulatory Juan Pina Other [employer] Other Start: 01-10-2022 Telephone encounter Juan peng [facility] Start: 01-07-2022 End: 01-07-2022 Admission to same day surgery center MD Angie Moran Work Phone: [facility]-Surgery Center [facility] [place] Start: 01-03-2022 End: 01-03-2022 ambulatory Juan Pina Other [employer] Other Start: 01-03-2022 Telephone encounter Juan peng [facility] Start: 01-03-2022 End: 01-03-2022 Patient encounter procedure MD Angie Moran Work Phone: [facility]-Pre-Surgical Testing Start: 01-02-2022 End: 01-02-2022 ambulatory Juan Yovani Other [employer] Other Start: 01-02-2022 Encounter for other preprocedural examination Juan Pina [facility] Start: 01-02-2022 Office outpatient ne w 45 minutes Juan Pina [facility] Start: 01-02-2022 End: 01-02-2022 Patient encounter procedure MD Angie Moran Work Phone: [facility]-Ultrasound [facility] Start: 12-04-2021 End: 12-04-2021 ambulatory Juan Pina Other [employer] Other Start: 12-04-2021 Telephone encounter Juan peng [facility] Start: 11-08-2021 Rx Renewal Angie orldan Work Phone: [facility] 250 DO Work Phone: Start: 11-05-2021 End: 11-05-2021 ambulatory Angie Moran Other [facility] Other Start: 11-05-2021 Office outpatient vi sit 25 minutes Angie Moran [facility] [place] [facility] Start: 11-05-2021 Telephone encounter Angie manuel [facility] [place] [facility] Start: 11-05-2021 End: 11-05-2021 Patient encounter procedure MD Angie Moran Work Phone: [facility] [place] Start: 10-18-2021 Current tobacco non- user cad cap copd pv dm Angie Moran Work Phone: [facility] 320 DO Work Phone: Start: 09-27-2021 Rx Renewal Angie Crenshaw Chris roldan Work Phone: [facility] 250 DO Work Phone: Start: 09-05-2021 ([facility] C Vac) [facility] Co vid Vaccine Carissa [facility] Start: 09-05-2021 End: 09-05-2021 ambulatory Carissa Nikhilt Other [employer] Other Start: 08-05-2021 End: 08-05-2021 ambulatory Angie Moran Other [employer] Other Start: 08-05-2021 Office outpatient vi sit 15 minutes Angie Moran [facility] Start: 07-15-2021 End: 07-15-2021 ambulatory Angie Moran Other [employer] Other Start: 07-15-2021 Office outpatient vi sit 25 minutes [facility] Start: 06-07-2021 End: 06-07-2021 ambulatory Angie Moran Other [employer] Other Start: 06-07-2021 Telephone encounter Angie manuel [facility] Start: 04-10-2021 Telephone encounter Angie graf Work Phone: [facility] 320 DO Work Phone: Start: 04-04-2021 End: 04-04-2021 ambulatory Angie Moran Other [employer] Other Start: 04-04-2021 Office outpatient vi sit 15 minutes Angie Moran [facility] [place] [facility] Start: 03-08-2021 ([facility] C Vac) [facility] Co vid Vaccine Carissa [facility] Start: 03-08-2021 End: 03-08-2021 ambulatory Carissa Fitt Other [facility] Other Start: 03-01-2021 Current tobacco non- user cad cap copd pv dm Angie Moran Work Phone: [facility] 320 DO Work Phone: Start: 12-17-2020 Office outpatient vi sit 25 minutes Angie Moran [facility] Start: 02-16-2018 Patient encounter procedure PROVIDER UNKNOWN Facility:[id number] Start: 02-15-2018 Patient encounter procedure PROVIDER UNKNOWN Facility:[id number] Start: 04-01-2017 End: 04-01-2017 Ambulatory ERMA APLING Facility:[facility] Procedures Date Procedure Procedure Detail Performing Clinician Start: 08-27-2023 Pelvis X-ray MD Angie Moran Work Phone: Start: 08-27-2023 X-ray of both knees MD Angie Moran Work Phone: Start: 08-14-2023 ECG 12-LEAD BIANKA Dupree Start: 08-14-2023 Ecg routine ecg w/le ast 12 lds w/i&r Ilene Robles MD Work Phone: Start: 07-14-2023 Lipid panel ANGIE CLOUD Start: 07-14-2023 RENAL FUNCTION PANEL MARY DREWCOREY MORAN Start: 07-14-2023 Lipid 1996 panel - S shira or Plasma Ilene Robles MD Work Phone: Start: 03-03-2023 Ecg routine ecg w/le ast 12 lds trcg only w/o i&r Ilene Robles MD Work Phone: Start: 12-28-2022 End: 03-03-2023 History of percutaneous transluminal coronary angioplasty History of PTCA Bianka Damon MD Work Phone: Start: 01-07-2022 OR Wound Debridement/I&D/Hydradenitis (Right) MD Angie Moran Work Phone: Start: 02-14-2020 Thyrotropin [Units/v olume] in Serum or Plasma Bianka Damon MD Work Phone: Aerobic microbial culture MD Angie Moran Work Phone: Anaerobic microbial culture MD Angie Moran Work Phone: Appendectomy Angie jefferson Work Phone: Cardiac catheterization Andrae Moran Work Phone: Cardioversion Angie roldan Work Phone: Hernia repair Angie roldan Work Phone: History of percutane ous transluminal coronary angioplasty History of PTCA Angie Den Dean Work Phone: Investigation of tra nsfusion reaction MD Angie Moran Work Phone: Leg repair Angie jefferson Work Phone: Comment on above: hematoma removal; Repair of meniscus Angie Den Dean Work Phone: Comment on above: x2; Total colonoscopy Angie graf Work Phone: Comment on above: May.05; Plan of Treatment Date Care Activity Detail Author Start: 07-13-2028 Lipid panel Lipid Panel [facility] Start: 03-08-2024 End: 03-08-2024 Patient encounter procedure 03/08/2024 12:45 PM EST Office Visit [facility] [address] [facility] [address] [place] [address] Bianka Damon MD [address] [facility] Medical Office [facility], [place] [address] [place] [address] [facility] Start: 02-16-2024 End: 02-16-2024 Patient encounter procedure 02/16/2024 12:20 PM EDT Office Visit [facility] [address] [facility] [address] [place] [address] Ilene Robles MD [address] [facility] Medical Office [address], [place] [address] [place] [address] [facility] Start: 08-27-2023 Patient referral [facility] Work Phone: Start: 08-27-2023 Pelvis X-ray XR pelvis 1-2V [facility] Start: 08-27-2023 X-ray of both knees XR knee BI 4V Fi [facility] Start: 08-27-2023 XR Knee - bilateral 4 Views [facility] Start: 08-27-2023 XR Pelvis 1 or 2 Views [facility] Start: 08-14-2023 End: 08-14-2023 Patient encounter procedure [facility] Start: 07-14-2023 End: 07-13-2024 Lipid 1996 panel - Serum or Plasma [facility] Service Area Work Phone: Comment on above: Expected: 07/14/2023 (Approximate), Expires: 07/13/2024 Start: 07-14-2023 End: 07-13-2024 Renal function 1999 panel - Serum or Plasma [facility] Work Phone: Comment on above: Expected: 07/14/2023 (Approximate), Expires: 07/13/2024 Start: 04-21-2023 End: 04-21-2023 Patient encounter procedure 04/21/2023 12:45 PM EST Office Visit [facility] [address] [id number] Bianka Damon MD [address] [facility] Medical Office Bldg, [address] [address] [facility] Start: 03-06-2023 FUVHOSP, Provider: Bianka Damon, Status: Pen, Time: 1:15 PM FUVHOSP, Provider: Bianka Damon, Status: Pen, Time: 1:15 PM [facility] Work Phone: Start: 01-30-2023 FUV, Provider: Ilene Robles, Status: Pen, Time: 12:20 PM FUV, Provider: Ilene Robles, Status: Pen, Time: 12:20 PM [facility] Work Phone: Start: 12-19-2022 COVID-19 Vaccine ( season) COVID-19 Vaccine () [facility] Start: 09-02-2022 FUV, Provider: Bianka Damon, Status: Pen, Time: 12:45 PM FUV, Provider: Bianka Damon, Status: Pen, Time: 12:45 PM [facility] 320 DO Work Phone: Start: 08-28-2022 Duplex scan of lower limb veins US venous duplex LE BI [facility] Start: 08-28-2022 US Lower extremity v ein - bilateral [facility] Start: 03-20-2022 COVID-19 Vaccine (5 - Moderna series) COVID-19 Vaccine (5 - Moderna series) [facility] Start: 02-18-2022 FUV, Provider: Ilene Robles, Status: Pen, Time: 12:20 PM FUV, Provider: Ilene Robles, Status: Pen, Time: 12:20 PM [facility] 320 DO Work Phone: Start: 01-27-2022 ZIOPATCH, Provider: EUGENIA FLANAGAN ALL SOURCE ANALYST 1,[id number], Status: Pen, Time: 8:00 AM [employer], Provider: EUGENIA FLANAGAN [employer] SOURCE ANALYST 1,[id number], Status: Pen, Time: 8:00 AM [facility] 250 DO Work Phone: Start: 01-13-2022 ZIOPATCH, Provider: EUGENIA FLANAGAN [employer] SOURCE ANALYST 1,[id number], Status: Pen, Time: 1:00 PM [employer], Provider: EUGENIA FLANAGAN ALL SOURCE ANALYST 1,[id number], Status: Pen, Time: 1:00 PM [facility] 320 DO Work Phone: Start: 01-07-2022 [facility] Start: 01-07-2022 End: 01-07-2022 [facility] Start: 10-18-2021 FUV, Provider: Ilene Robles, Status: Pen, Time: 12:20 PM FUV, Provider: Ilene Robles, Status: Pen, Time: 12:20 PM [facility] 250 DO Work Phone: Start: 08-30-2021 FUV, Provider: Ilene Robles, Status: Pen, Time: 9:20 AM FUV, Provider: Ilene Robles, Status: Pen, Time: 9:20 AM [facility] 320 DO Work Phone: Start: 02-13-2021 Thyroid stimulating hormone measurement TSH Level [facility] Start: 2020 Pneumococcal Vaccine : 65+ Years (3 - PPSV23 or PCV20) Pneumococcal Vaccine: 65+ Years (3 - PPSV23 or PCV20) [facility] [facility] [place] Start: 2020 Pneumococcal Vaccine : 65+ Years (3 of 3 - PPSV23 or PCV20) Pneumococcal Vaccine: 65+ Years (3 of 3 - PPSV23 or PCV20) [facility] Start: 09-01-2016 Pneumococcal Vaccine : 65+ Years (2 - PPSV23 or PCV20) Pneumococcal Vaccine: 65+ Years (2 - PPSV23 or PCV20) [facility] Start: 2015 RSV patient s and/or patients aged 60+ years (1 - 1-dose 60+ series) RSV patients and/or patients aged 60+ years (1 - 1-dose 60+ series) [facility] Start: 2005 Zoster Vaccines (1 of 2) Zoste r Vaccines (1 of 2) [facility] Start: 1977 DTaP/Tdap/Td Vaccine s (1 - Tdap) DTaP/Tdap/Td Vaccines (1 - Tdap) [facility] Start: 1973 Diabetes mellitus screening Diabetes Screening [facility] Start: 1973 Hepatitis C screening [facility] Lipid panel Lipid Panel [facility] Start: 1955 Medicare Annual Well ness Visit Medicare Annual Wellness Visit (AWV) [facility] Start: 1955 Screening for malign ant neoplasm of colon [facility] Aerobic Culture Aerobic Culture [facility] Anaerobic Culture Anaerobic [facility] Bacteria identified in Unspecified specimen by Aerobe culture [facility] Work Phone: Bacteria identified in Unspecified specimen by Anaerobe culture [facility] Work Phone: Comprehensive metabo lic 2000 panel - Serum or Plasma [facility] Microscopic observat ion [Identifier] in Unspecified specimen by Gram stain [facility] Patient Education Negative Press ure Wound Therapy [facility] Work Phone: Patient referral [facility] Work Phone: Superficial Wound Culture Superficial Wound Culture [facility] Immunizations Immunization Date Immunization Notes Care Provider Fa cility 02-27-2023 influenza virus vaccine, unspecified formulation [facility] 02-27-2023 influenza, high dose seasonal, preservative-free Juan Pina Other [facility] Other 01-23-2022 influenza, high dose seasonal, preservative-free Cairssa Fitt Other [facility] Other 01-23-2022 COVID-19 Moderna (BIvalent) Carissa Fitt Other [facility] Other 01-23-2022 influenza virus vaccine, unspecified formulation [facility] 09-05-2021 COVID-19 Moderna Carissa Fitt Other [facility] 03-08-2021 COVID-19 Moderna Carissa Fitt Other [facility] 01-18-2021 influenza virus vaccine, unspecified formulation; Translations: [Influenza] Angie Moran Work Phone: [facility] [address] DO Work Phone: Comment on above: Series: 07-26-2020 Moderna COVID-19 Vaccine 100 MCG/0.5ML Intramuscular Suspension Angie Moran Work Phone: [facility] [address] DO Work Phone: 06-28-2020 Moderna COVID-19 Vaccine 100 MCG/0.5ML Intramuscular Suspension Angie Moran Work Phone: [place] [address] DO Work Phone: 01-31-2020 influenza, injectabl e, quadrivalent, preservative free Angie Moran Work Phone: [place] [address] DO Work Phone: 01-23-2020 influenza, seasonal, injectable Angie Moran Work Phone: [place] [address] DO Work Phone: 02-10-2019 influenza, injectabl e, quadrivalent, contains preservative Angie Moran Other [facility] Other 02-10-2019 influenza, injectabl e, quadrivalent, preservative free [facility] 02-10-2019 influenza, seasonal, injectable Bianka Damon MD Work Phone: [facility] Work Phone: 04-02-2018 influenza, injectabl e, quadrivalent, contains preservative Angie Moran Other [facility] Other 04-02-2018 influenza, injectabl e, quadrivalent, preservative free [facility] 07-07-2016 pneumococcal conjuga te vaccine, 13 valent Angie Moran Other [facility] Other 01-14-2010 pneumococcal polysaccharide vaccine, 23 valent Angie Moran Other [facility] 03-30-2006 tetanus toxoid, adsorbed Angie Moran Work Phone: -[facility] [address] DO Work Phone: Payers Date Payer Category Payer Self-pay [id number] 2021 Medicare [id number] 2. [id number] 2021 Medicare [id number] 2020 Medicare [id number] 2.1 [id number] 2013 Unknown [id number] 1955 Unknown [id number] 2.16.8 [id number] 1955 Unknown [id number] 2.16.8 [id number] 1955 Unknown [id number] 2.16. [id number] 1955 Unknown [id number] 2.16. [id number] 1955 Unknown [id number] 2.16. [id number] 1955 Unknown [id number] 2.16. [id number] 1955 Unknown [id number] 2.16.8 [id number] 1955 Unknown [id number] 2.16.8 [id number] 1955 Unknown [id number] 2.16.8 [id number] 1955 Unknown [id number] 2.16.8 [id number] Unknown Unknown [id number] 2.16.8 [id number] Unknown [id number] 2.16.8 [id number] Unknown [id number] 2.16.8 [id number] Social History Date Type Detail Facility Start: 02-06-2023 End: 07-14-2023 No illicit drug use No illicit drug use -[facility] [address] DO Work Phone: Comment on above: maybe once a month; 2x weekly; Start: 02-06-2023 End: 07-14-2023 Sex Assigned At [facility] Other Start: 08-09-2017 End: 01-07-2022 Tobacco smoking status NHIS Never smoked tobacco (finding) [facility] Start: 1955 Sex Assigned At [facility] Start: 02-06-2023 Tobacco use and exposure Smokeless tobacco non-user [facility] Work Phone: Start: 03-03-2023 End: 08-14-2023 Alcohol intake Current drinker of alcohol (finding) [facility] Work Phone: Start: 02-06-2023 Alcohol Comment Rare [facility] Work Phone: Start: 1955 [facility] Start: 02-21-2023 End: 08-14-2023 Exposure to SARS-CoV-2 (event) Not sure [facility] Goals Date Patient Goal Desired Activity /State Clinical Notes 02-14-2020 to 08-14-2023 Ilene Robles MD - 08/14/2023 12:20 PM EDTPatient InstructionsBianka Damon MD - 07/14/2023 12:45 PM EDTPatient Instructions Note Date & Type Note Facility 08-14-2023 History of Present illness Narrative Chief Complaint: Follow-up (6 month) History Of Present Illness: Kojo Rausch is a 68 y.o. male presenting with follow-up. He is accompanied by his . He is not aware of his heartbeat. He denies any lightheadedness, dizziness, near-syncope, or syncope. Reports that he knows that he needs to lose weight. He mentions that someone had discussed Ozempic type medication with him. We reviewed potential side effects. We also discussed that if injectable medication use, that would be helpful. Time before any elective procedure. Lastly, he inquires about knee replacement. We reviewed that as he has permanent atrial fibrillation would bridge with Lovenox while off Xarelto. Last Recorded Vitals: Vitals: 08/14/23 1230 BP: 120/80 BP Location: Right arm Patient Position: Sitting Pulse: 62 Past Medical History: See List Past Surgical History: See List Social History: He reports that he has never smoked. He has never used smokeless tobacco. He reports current alcohol use. He reports that he does not use drugs. Family History: Family History Problem Relation Name Age of Onset No Known Problems Mother Coronary artery disease Father Heart attack Father No Known Problems Sibling Allergies: Patient has no known allergies. Outpatient Medications: Current Outpatient Medications Medication Instructions albuterol 90 mcg/actuation inhaler 1-2 puffs, inhalation, Every 6 hours PRN amLODIPine (Norvasc) 5 mg tablet 1 tablet, oral, Daily, PRN esomeprazole (NexIUM) [address] capsule 1 capsule, oral, Daily ezetimibe-simvastatin (Vytorin) 10-20 mg tablet 1 tablet, oral, Daily hydroCHLOROthiazide (HYDRODIURIL) 25 mg, oral, Daily isosorbide mononitrate ER (Imdur) 60 mg 24 hr tablet 1 tablet, oral, Daily levothyroxine (Synthroid, Levoxyl) 112 mcg tablet 1 tablet, oral, Daily lisinopril 20 mg, oral, Daily magnesium oxide (Mag-Ox) 400 mg (241.3 mg magnesium) tablet 1 tablet, oral, 2 times daily metoprolol succinate XL (Toprol-XL) 25 mg 24 hr tablet 1 tablet, oral, Nightly nitroglycerin (NITROSTAT) 0.4 mg, sublingual, Every 5 min PRN omega-3 fatty acids-fish oil (Fish OiL) 340-1,000 mg capsule 1 capsule, oral, Daily rivaroxaban (Xarelto) 20 mg tablet 1 tablet, oral, Daily Review of Systems Cardiovascular: Positive for leg swelling. Negative for chest pain, dyspnea on exertion and palpitations. All other systems reviewed and are negative. When amlodipine was held, edema resolved Physical Exam: Constitutional: General: Awake. Appearance: Normal and healthy appearance. Well-developed and not in distress. Neck: Vascular: No JVR. JVD normal. Pulmonary: Effort: Pulmonary effort is normal. Breath sounds: Normal breath sounds. No wheezing. No rhonchi. No rales. Chest: Chest wall: Not tender to palpatation. Cardiovascular: PMI at left midclavicular line. Normal rate. Irregularly irregular rhythm. Normal S1. Normal S2. Murmurs: There is no murmur. No gallop. No click. No rub. Comments: Atrial fibrillation Pulses: Intact distal pulses. Edema: Ankle: bilateral 1+ edema of the ankle. Abdominal: Tenderness: There is no abdominal tenderness. Musculoskeletal: Normal range of motion. General: No tenderness. Skin: General: Skin is warm and dry. Neurological: General: No focal deficit present. Mental Status: Alert and oriented to person, place and time. Last Labs: CBC - Lab Results Component Value Date WBC 7.1 02/14/2020 HGB 15.1 02/14/2020 HCT 44.8 02/14/2020 MCV 90 02/14/2020 PLT 255 02/14/2020 CMP - Lab Results Component Value Date CALCIUM 9.7 07/14/2023 PHOS 4.1 07/14/2023 PROT 7.2 02/14/2020 ALBUMIN 4.4 07/14/2023 AST 24 02/14/2020 ALT 24 02/14/2020 ALKPHOS 125 02/14/2020 BILITOT 0.8 02/14/2020 LIPID PANEL - Lab Results Component Value Date CHOL 122 07/14/2023 TRIG 144 07/14/2023 HDL 34.4 07/14/2023 CHHDL 3.5 07/14/2023 VLDL 29 07/14/2023 NHDL 88 07/14/2023 RENAL FUNCTION PANEL - Lab Results Component Value Date GLUCOSE 90 07/14/2023 NA 139 07/14/2023 K 3.6 07/14/2023 CL 101 07/14/2023 CO2 31 07/14/2023 ANIONGAP 11 07/14/2023 BUN 22 07/14/2023 CREATININE 1.28 07/14/2023 CALCIUM 9.7 07/14/2023 PHOS 4.1 07/14/2023 ALBUMIN 4.4 07/14/2023 No results found for: BNP , HGBA1C Last Cardiology Tests: ECG: ECG 12 lead (Ancillary Performed) 03/03/2023 Today. Atrial fibrillation. Controlled ventricular rate. Normal axis. Corrected QT interval 450 ms Stress Test: Nuclear Stress Test 11/29/2020 Lab review: I have personally reviewed the laboratory result(s) see above Assessment/Plan Diagnoses and all orders for this visit: Longstanding persistent atrial fibrillation (Multi) Bradycardia Primary hypertension History of AK (myocardial infarction) Mixed hyperlipidemia CAD S/P percutaneous coronary angioplasty Never smoked tobacco Morbid obesity with BMI of 40.0-44.9, adult (Multi) Anticoagulated Encounter for medication review and counseling Encounter to discuss treatment options Avoid anesthetics with epinephrine for any upcoming procedures. Patient would need bridged with Lovenox while holding xarelto for procedures. Chelsea Prince RN Permanent atrial fibrillation. Intolerant of amiodarone due to marked concern about side effects. Declined intervention including ablation earlier in atrial fibrillation course. Anticoagulated. Reviewed meds. Continue meds. Discussed refills High risk medication Xarelto. Continue long-term. Asymptomatic sinus bradycardia. Chronic. Stable. Reviewed meds. No invasive EP evaluation indicated. Continue low-dose metoprolol Coronary artery disease. Chronic. Stable. Status post multivessel PCI stent.-2004 PCI/MAC proximal circumflex, PCI/MAC RCA. Last catheterization 2007 with mid LAD 30%, circumflex negative, RCA 20%. Subsequent perfusion study with probable artifact, no clear ischemia in 2018. Reviewed medications. Continue medications. Discussed. Hypertension. Amlodipine decreased and lisinopril increased. Improved effect of lower extremity edema. Follows with cardiology. Normal LV function and mild valvular heart disease by January 2020 . Chronic. Stable. Follows with cardiology. Hyperlipidemia. Chronic. Stable. On statin Obstructive sleep apnea. Chronic. Stable. Discussed association of sleep apnea, weight, and atrial fibrillation Hypothyroidism. Chronic and stable per report. Follows with PCP Covid recovered. January 2020. Knee arthritis. Discussed for surgeries, would bridge with Lovenox. Also would avoid anesthetics with epinephrine Bilateral pedal edema. Likely venous insufficiency as well as amlodipine side effect per patient report. Discussed compression stockings Overweight AHA recommendations for exercise, diet, and behavioral modification reviewed with pt. The patient and I discussed the mechanism of arrhythmia, atrial fibrillation, ECG, heart rate, anticoagulation, types of anticoagulation, weight, types of weight loss medications what to avoid from arrhythmia standpoint, if patient has knee surgery then bridged with Lovenox, indications for and types of medications, discussion if and what medication refills needed, treatment options, risks, benefits, and imponderables. [place] [employer] lifestyle changes and behavioral modification discussed. All questions answered in detail. Counseling over 50% visit regarding above. Patient appreciative of care. documented in this encounter [facility] Work Phone: 08-14-2023 Instructions Chelsea Prince RN - 08/14/2023 12:20 PM EDT Continue same medications/treatment. Patient educated on proper medication use. Patient educated on risk factor modification. Please bring any lab results from other providers/physicians to your next appointment. Please bring all medicines, vitamins, and herbal supplements with you when you come to the office. Prescriptions will not be filled unless you are compliant with your follow up appointments or have a follow up appointment scheduled as per instruction of your physician. Refills should be requested at the time of your visit. Follow up with Dr. Robles in 6 months I, CHELSEA PRINCE RN, AM SCRIBING FOR AND IN THE PRESENCE OF DR. ILENE ROBLES MD, FACC, FACP, FHRS documented in this encounter [facility] Work Phone: 07-14-2023 History of Present illness Narrative Referred by DrJessie No ref. provider found provider found for Chief Complaint Patient presents with Follow-up 4 month History of Present Illness Kojo Rausch is a 68 y.o. year old male patient doing well from a cardiac standpoint no complaint no symptoms of chest pain or shortness of breath. Blood pressure is adequately controlled. He did have some swelling from amlodipine and therefore he is using it only as needed for now. Denies any symptoms of palpitation or syncope. I discussed with the patient in length we will continue medication will call for any problem and follow-up as scheduled lab work were ordered Past Medical History Past Medical History: Diagnosis Date Other specified abnormal findings of blood chemistry 02/22/2021 Abnormal TSH Personal history of other diseases of the respiratory system 02/22/2021 History of pleural effusion Social History Social History Tobacco Use Smoking status: Never Smokeless tobacco: Never Substance Use Topics Alcohol use: Yes Comment: Rare Drug use: Never Family History Family History Problem Relation Name Age of Onset No Known Problems Mother Coronary artery disease Father Heart attack Father No Known Problems Sibling Review of Systems As per HPI, all other systems reviewed and negative. Allergies: No Known Allergies Outpatient Medications: Current Outpatient Medications Medication Instructions albuterol 90 mcg/actuation inhaler 1-2 puffs, inhalation, Every 6 hours PRN amLODIPine (Norvasc) 5 mg tablet 1 tablet, oral, Daily, PRN esomeprazole (NexIUM) [address] capsule 1 capsule, oral, Daily ezetimibe-simvastatin (Vytorin) 10-20 mg tablet 1 tablet, oral, Daily hydroCHLOROthiazide (HYDRODiuril) 25 mg tablet 1 tablet, oral, Daily isosorbide mononitrate ER (Imdur) 60 mg 24 hr tablet 1 tablet, oral, Daily levothyroxine (Synthroid, Levoxyl) 112 mcg tablet 1 tablet, oral, Daily lisinopril 20 mg, oral, Daily magnesium oxide (Mag-Ox) 400 mg (241.3 mg magnesium) tablet 1 tablet, oral, 2 times daily metoprolol succinate XL (Toprol-XL) 25 mg 24 hr tablet 1 tablet, oral, Nightly nitroglycerin (NITROSTAT) 0.4 mg, sublingual, Every 5 min PRN omega-3 fatty acids-fish oil (Fish OiL) 340-1,000 mg capsule 1 capsule, oral, Daily rivaroxaban (Xarelto) 20 mg tablet 1 tablet, oral, Daily Vitals: Vitals: 07/14/23 1250 BP: 116/70 Pulse: 60 Physical Exam: Physical Exam Vitals and nursing note reviewed. Constitutional: Appearance: Normal appearance. HENT: Head: Normocephalic and atraumatic. Eyes: Extraocular Movements: Extraocular movements intact. Pupils: Pupils are equal, round, and reactive to light. Cardiovascular: Rate and Rhythm: Normal rate and regular rhythm. Pulses: Normal pulses. Pulmonary: Effort: Pulmonary effort is normal. Breath sounds: Normal breath sounds. Musculoskeletal: General: Normal range of motion. Cervical back: Normal range of motion. Right lower leg: No edema. Left lower leg: No edema. Skin: General: Skin is warm and dry. Neurological: General: No focal deficit present. Mental Status: He is alert and oriented to person, place, and time. Assessment/Plan Diagnoses and all orders for this visit: CAD S/P percutaneous coronary angioplasty History of AK (myocardial infarction) Primary hypertension Mixed hyperlipidemia Longstanding persistent atrial fibrillation (CMS/HCC) Morbid obesity with BMI of 40.0-44.9, adult (CMS/HCC) Never smoked tobacco Bianka Damon MD [facility] Interventional Cardiology [employer] [facility] Thank you for allowing me to participate in the care of this patient. Please do not hesitate to contact me with any further questions or concerns. documented in this encounter [facility] Work Phone: 07-14-2023 Instructions Marni Perez LPN - 07/14/2023 12:45 PM EDT Lab work to be done today Will call patient with test results once reviewed by physician Follow up office visit in 9 months Continue same medications/treatment. Patient educated on proper medication use. Patient educated on risk factor modification. Please bring any lab results from other providers / physicians to your next appointment. Please bring all medicines, vitamins and herbal supplements with you when you come to the office. Prescriptions will not be filled unless you are compliant with your follow up appointments or have a follow up appointment scheduled as per instruction of your physician. Refills should be requested at the time of Your visit. Marni Rothman LPN, am scribing for and in the presence of Dr. Bianka Damon MD, [facility] documented in this encounter [facility] Work Phone: 04-23-2023 Evaluation note Encounter Date Diagnosis Assessment Notes Apr, Coronary artery disease, angina presence unspecified, unspecified vessel or lesion type, unspecified whether robinson or transplanted heart (ICD-10 - I25.10) CAD remains stable and pt remains asymptomatic with present med management. Regular 3M. Follow-up recommended. Criteria for NTG use and ER evaluation carefulliy reviewed. Keep regular superintendent meter tests evaluations. We talked specifically about comorbidities associated with CAD. We reviewed the natural history of intermediate CAD. Apr, Essential hypertension (ICD-10 - I10) Patient continues to do well with management of hypertension.Revi ewed importance of nonpharmacologic treatment measures including excercise, diet, weight control. Currently meets AHA criteria for controlled hypertension. Criteria for medication adjustments reviewed. Taking all meds as directed reinforced. Apr, STACIA (obstructive sleep apnea) (ICD-10 - G47.33) Longstanding sleep apnea, clinically stable with management. Stands the need for weight loss and regular exercise. Apr, Hyperlipidemia (ICD-10 - E78.5) History of dyslipidemia. Given his history of hypertension and coronary disease, it is imperative that he manage this both pharmacologically and nonpharmacological ly. Apr, Obesity (ICD-10 - E66.9) Patient remains morbidly obese. He understands the need for weight loss for all of his diagnoses. Hopefully he will be able to resume the Ozempic and tolerate the expected side effects. Have asked him to wait till he gets to [place] before resuming the shots. He should start again with the 0.25 mg weekly. 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 Most recent lab work was satisfactory. 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 She is in a clinical trial in [place] for this, thus far seems to be doing better, which has helped his anxiety. Apr, Impaired fasting glucose (ICD-10 - R73.01) Recent hemoglobin A1c was 6.2%. He will benefit from Ozempic for diabetes and weight management. [facility] Other 11-15-2023 Evaluation note* Encounter Date Diagnosis Assessment Notes Treatment Notes Treatment Clinical Notes Feb, Chronic venous hypertension involving both sides (ICD-10 - I87.303) This patient clearly has venous hypertension given his hemosiderin deposition in the gaiter distribution bilaterally. However his feet and legs are doing much better and his swelling is improved. I did caution him about his weight. I also recommend him to continue using the knee-high compression stockings elevation moisturizer therapy and exercise. He states he does exercise regularly. I will see him as needed in the future. He is pleased with his outcome. [facility] Other 11-14-2023 History of Present illness Narrative* Bianka Damon MD - 03/03/2023 12:45 PM EST Referred by Dr. Bernard ref. provider found provider found for Chief Complaint Patient presents with Follow-up 3 month History of Present Illness Kojo Rausch is a 67 y.o. year old male patient with chronic atrial fibrillation. EKG showed atrial fibrillation with controlled ventricular rate. He is currently on Eliquis. He has been doing well otherwise no complaint no symptoms of chest pain or shortness of breath. He is considering taking Ozempic for weight loss. From a cardiac standpoint there is no contraindication for it. I told himthat he should be able to to get it as long as his insurance covers it. The patient understood. We will continue other medication will call for any problems and follow-up as scheduled Past Medical History Past Medical History: Diagnosis Date Other specified abnormal findings of blood chemistry 02/22/2021 Abnormal TSH Personal history of other diseases of the respiratory system 02/22/2021 History of pleural effusion Social History Social History Tobacco Use Smoking status: Never Smokeless tobacco: Never Substance Use Topics Alcohol use: Yes Comment: Rare Drug use: Never Family History Family History Problem Relation Name Age of Onset No Known Problems Mother Coronary artery disease Father Heart attack Father No Known Problems Sibling Review of Systems As per HPI, all other systems reviewed and negative. Allergies: No Known Allergies Outpatient Medications: Current Outpatient Medications Medication Instructions albuterol 90 mcg/actuation inhaler 1-2 puffs, inhalation, Every 6 hours PRN amLODIPine (Norvasc) 5 mg tablet 1 tablet, oral, Daily, PRN esomeprazole (NexIUM) [address] capsule 1 capsule, oral, Daily ezetimibe-simvastatin (Vytorin) 10-20 mg tablet 1 tablet, oral, Daily hydroCHLOROthiazide (HYDRODiuril) 25 mg tablet 1 tablet, oral, Daily isosorbide mononitrate ER (Imdur) 60 mg 24 hr tablet 1 tablet, oral, Daily levothyroxine (Synthroid, Levoxyl) 112 mcg tablet 1 tablet, oral, Daily lisinopril 20 mg, oral, Daily magnesium oxide (Mag-Ox) 400 mg (241.3 mg magnesium) tablet 1 tablet, oral, 2 times daily metoprolol succinate XL (Toprol-XL) 25 mg 24 hr tablet 1 tablet, oral, Nightly nitroglycerin (NITROSTAT) 0.4 mg, sublingual, Every 5 min PRN omega-3 fatty acids-fish oil (Fish OiL) 340-1,000 mg capsule 1 capsule, oral, Daily rivaroxaban (Xarelto) 20 mg tablet 1 tablet, oral, Daily Vitals: Vitals: 03/03/23 1246 BP: 146/84 Pulse: 72 Physical Exam: Physical Exam Constitutional: Appearance: Normal appearance. HENT: Head: Normocephalic and atraumatic. Eyes: Extraocular Movements: Extraocular movements intact. Pupils: Pupils are equal, round, and reactive to light. Cardiovascular: Rate and Rhythm: Normal rate and regular rhythm. Pulses: Normal pulses. Heart sounds: Normal heart sounds. Pulmonary: Effort: Pulmonary effort is normal. Breath sounds: Normal breath sounds. Abdominal: General: Abdomen is flat. Palpations: Abdomen is soft. Musculoskeletal: Right lower leg: No edema. Left lower leg: No edema. Skin: General: Skin is warm and dry. Neurological: General: No focal deficit present. Mental Status: He is alert and oriented to person, place, and time. Assessment/Plan Diagnoses and all orders for this visit: CAD S/P percutaneous coronary angioplasty History of AK (myocardial infarction) Primary hypertension Mixed hyperlipidemia Longstanding persistent atrial fibrillation (CMS/HCC) High risk medication use Anticoagulated Morbid obesity with BMI of 40.0-44.9, adult ([facility]) Never smoked tobacco [facility] [employer] [facility] Thank you for allowing me to participate in the care of this patient. Please do not hesitate to contact me with any further questions or concerns. documented in this [facility] Work Phone: [phone]) 281-165611-14-2023 Instructions* Patient Instructions* Yonathan Farrell RN - 03/03/2023 12:45 PM EST Patient to follow up in April with Dr[facility] Discussed Ozempic- in terms of risk from cardiac standpoint- this is fine to take per Dr. [facility] As long as you can tolerate medicine and you can afford medicine. No other changes today. Continue same medications and treatments. Patient educated on proper medication use. Patient educated on risk factor modification. Please bring any lab results from other providers / physicians to your next appointment. Please bring all medicines, vitamins, and herbal supplements with you when you come to the office. Prescriptions will not be filled unless you are compliant with your follow up appointments or have a follow up appointment scheduled as per instruction of your physician. Refills should be requested at the time of your visit. IYonathan RN am scribing for and in the presence of Dr. Bianka Damon [facility] documented in this encounterSelect [facility] Work Phone: [phone]) 554-779011-10-2023 Evaluation note* Encounter Date Diagnosis Assessment Notes Treatment Notes Treatment Clinical Notes Feb, Need for vaccination (ICD-10 - Z23) [facility] Other 11-07-2023 Evaluation note* Encounter Date Diagnosis Assessment Notes Treatment Notes Treatment Clinical Notes Feb, HTN (hypertension) (ICD-10 - I10) [facility] Other 11-05-2023 Evaluation note* Encounter Date Diagnosis Assessment Notes Treatment Notes Treatment Clinical Notes Feb, Asthma (ICD-10 - J45.909) [facility] Other 11-02-2023 Evaluation note* Encounter Date Diagnosis Assessment Notes Treatment Notes Treatment Clinical Notes Feb, HTN (hypertension) (ICD-10 - I10) Patients blood pressure is well controlled at this time. Denies cardiac symptoms at todays visit. We will continue to monitor. Continue above medications. Feb, CAD (coronary artery disease) (ICD-10 - I25.10) Denies no new cardiac symptoms. Shows no signs or symptoms or poor control. Patient to continue with above medication and we will continue to monitor. Advised to pay attention to body and symptoms. Any developing patterns. Stay well hydrated. Continue to follow up with Cardiology as directed for management. Feb, Generalized anxiety disorder (ICD-10 - F41.1) Encouraged to stay active and remain involved. Feb, Hyperlipidemia (ICD-10 - E78.5) Patient is to increase exercise and continue to watch diet. We will continue to monitor with routine blood work. Feb, STACIA (obstructive sleep apnea) (ICD-10 - G47.33) Stable on current medication Feb, Afib (ICD-10 - I48.91) Stable with medication Feb, Asthma (ICD-10 - J45.909) Asthma symptoms remain unchanged at this time. Patient denies any recent flare ups. He should continues to pace himself. Take medication as directed and we will continue to monitor. Patient to continue to follow up with Pulmonology for management. Feb, GERD (gastroesophageal reflux disease) (ICD-10 - K21.9) Patients reflux symptoms remain unchanged at this time. We Discussed the importance of meal content and timing. Reviewed the importance to avoid overeating and eating late in evening. Take medication as directed and we will continue to monitor. Feb, Hypothyroidism due t o medication (ICD-10 - E03.2) Patient is asymptomatic at this time, Patient to continue with above medication and we will continue to monitor through routine blood work. Feb, Obesity (ICD-10 - E66.9) Long discussion with patient on newer medications such as Wegovy and Ozempic, I would like to complete lab work to determine if he would qualify for medication. [facility] Other 05-11-2023 Evaluation note* Encounter Date Diagnosis Assessment Notes Treatment Notes Treatment Clinical Notes August, Bilateral leg edema (ICD-10 - R60.0) We reviewed today's full functional venous duplex which shows no valvular incompetence on the right lower extremity. He does have continuous reflux of the left LSV. At his previous visit we did get him set up with venous pumps which he has just begun using. He tells me that his swelling is controlled with his conservative therapy efforts with graded compression stockings, leg elevation, he does practice good skin care moisturizer therapy and he is currently working on his weight management. We will continue to manage him conservatively with these methods and follow him up again at the end of summer before he goes to [place] to see how he is doing. He does understand the chronic nature of venous disease and the importance of consistency and conservative therapy efforts. August, BMI 45.0-49.9, adult (ICD-10 - Z68.42) Extensive discussion with the patient over the importance of weight management and discussed various methods of weight loss. Discussed importance of nutrition and increased activity. He understands the health risks associated with obesity. He agrees to work on weight loss program. [facility] Other 04-12-2023 Evaluation note* Encounter Date Diagnosis Assessment Notes Treatment Notes Treatment Clinical Notes Jul, Contusion of right lower leg, subsequent encounter (ICD-10 - S80.11XD) Jul, Bilateral leg edema (ICD-10 - R60.0) Jul, Lymphedema (ICD-10 - I89.0) Jul, Other This patient oneil s made remarkable recovery since we last saw him last fall. He had wound VAC therapy up until about [place] time and was followed by wound care in [place] with periodic Unna boot therapy. Unfortunately this is irritated his skin. He has been using triamcinolone cream on it which again I feel this is also irritating his skin a bit. I suggest we move to cleansing daily with warm, mild soap and water, pat dry, good skin care moisturizer therapy. We discussed the importance of continued use of graded compression stockings and leg elevation for his ongoing lower extremity edema. I suspect some degree of venous insufficiency adding to his chronic lower extremity edema. We will go ahead and obtain a full functional venous duplex to evaluate for any venous valvular incompetence and have him back to the office to discuss those results as well as any treatment recommendations based on those studies. I will also get him set up with venous pumps to aid in relief of his chronic edema going forward. He was measured here in our office today for these pumps. We discussed vein disease at length and all their questions were addressed. They verbalized understanding of all discussion, agree with this plan, and denies any questions. [facility] Other 11-22-2022 Evaluation note* Encounter Date Diagnosis Assessment Notes Treatment Notes Treatment Clinical Notes Feb, HTN (hypertension) (ICD-10 - I10) Patients blood pressure is well controlled at this time. Denies cardiac symptoms at todays visit. We will continue to monitor. Continue above medications. Feb, Hyperlipidemia (ICD-10 - E78.5) Patient is to increase exercise and continue to watch diet. We will continue to monitor with routine blood work. Patient is to continue above medication. Feb, Obesity (ICD-10 - E66.9) Patients weight is stable at this time with wound vac in place, he is to exercise as tolerated while in [place]. Feb, GERD (gastroesophageal reflux disease) (ICD-10 - K21.9) Patients reflux symptoms remain unchanged at this time. We Discussed the importance of meal content and timing. Reviewed the importance to avoid overeating and eating late in evening. Take medication as directed and we will continue to monitor. Feb, Asthma (ICD-10 - J45.909) Asthma symptoms remain unchanged at this time. Patient denies any recent flare ups. He should continues to pace himself. Take medication as directed and we will continue to monitor. Patient to continue to follow up with Pulmonology for management. Feb, STACIA (obstructive sleep apnea) (ICD-10 - G47.33) Patient continues to wear CPAP Feb, Hypothyroidism due t o medication (ICD-10 - E03.2) Patient is asymptomatic at this time, Patient to continue with above medication and we will continue to monitor through routine blood work. Feb, Afib (ICD-10 - I48.91) Sable on medications, he is to continue and continue follow up visits with Cardiology. Feb, Contusion of right lower leg (ICD-10 - S80.11XA) Patient is currently attending Vascular, wound vac in place and will continue to wear it when he heads to [place]. He has a referral placed for Vascular in [place]. [facility] Other 11-12-2022 Evaluation note* Encounter Date Diagnosis Assessment Notes Treatment Notes Treatment Clinical Notes Feb, Coronary artery disease, angina presence unspecified, unspecified vessel or lesion type, unspecified whether robinson or transplanted heart (ICD-10 - I25.10) [facility] Other 11-09-2022 Evaluation note* Encounter Date Diagnosis Assessment Notes Treatment Notes Treatment Clinical Notes Feb, Contusion of right lower leg, initial encounter (ICD-10 - S80.11XA) Patient has finished his entire dose of headaches no remaining cellulitis of the right lower extremity. He continues with wound VAC therapy which is changed 3 times weekly by home health. He is getting ready for his trip to [place] and already has upcoming appointment with vascular specialist in that area. We are working on setting up home health in [place] to continue with wound VAC therapy. He does have some skin irritation around the wound area where the wound VAC material is applied to the skin. When questioned further, he tells me that prior to wound VAC application they do use a skin prep to this area. This may be irritating his skin a little bit. He will talk with his home health nurse and avoid use of the skin prep to see if that helps clear up the irritated area. Otherwise, he looks pretty good and his wound continues to improve. He will continue the wound VAC therapy and proceed with care with vascular specialist in [place] during his winter months. We will follow-up with him when he returns to [place] in the spring. He knows to call us with any issues or concerns through that time. He verbalizes understanding of all discussion, agrees this plan, denies any questions. [facility] Other 10-12-2022 Evaluation note* Encounter Date Diagnosis Assessment Notes Treatment Notes Treatment Clinical Notes Jan, Local infection of the skin and subcutaneous tissue, unspecified (ICD-10 - L08.9) Jan, Contusion of right lower leg, initial encounter (ICD-10 - S80.11XA) Patient is doing quite well with wound VAC therapy after I&D of his right lower extremity hematoma. Wound VAC is managed by home health and change 3 times weekly. The wound is looking great. This wound will take some time to heal. Patient is concerned about upcoming trip to [place] for the winter. We have agreed to help him find a vascular surgeon in [place] but can care for him while he is there. We will send referral and information from our office. Patient does not plan on going until after so we have some time to get this set up. We will see him back in the office in about a month for additional wound check. For now, he will continue with wound VAC therapy continuing to change 3 times a week managed by home health with the same. He verbalizes understanding of all discussion, agrees with this plan, denies any questions. [facility] Other 10-06-2022 Evaluation note* Encounter Date Diagnosis Assessment Notes Treatment Notes Treatment Clinical Notes Jan, Encounter for immunization (ICD-10 - Z23) Patient denies current illness, previous allergic reaction to influenza vaccine, eggs, or other vaccines, and Guillain-Winchester Syndrome. Patient given current editions of influenza Vaccine Information Statement (VIS). [facility] Other 09-26-2022 Evaluation note* Encounter Date Diagnosis Assessment Notes Treatment Notes Treatment Clinical Notes Dec, STACIA (obstructive sleep apnea) (ICD-10 - G47.33) [facility]-2022 [facility]* Encounter Date Diagnosis Assessment Notes Treatment Notes Treatment Clinical Notes Dec, Local infection of the skin and subcutaneous tissue, unspecified (ICD-10 - L08.9) Dec, Contusion of right lower leg, initial encounter (ICD-10 - S80.11XA) This patient's hematoma was initially managed conservatively. Unfortunately this turned into an infection which is now draining. This patient will need to go to the operating room for excision of nonviable tissue with irrigation debridement washout and application of wound VAC. I explained to the patient that he is likely to have this wound for 2 to 4 months or 3 to 6 months depending on how his healing is. We will submit approval for wound VAC and schedule this as soon as we get wound VAC approval which should be next week early. I do expect a full recovery and complete healing. Patient or stands agrees the plan all his questions were addressed. Dec, Pre-op testing (ICD-10 - Z01.818) [facility] Other 07-19-2022 Evaluation note* Encounter Date Diagnosis Assessment Notes Treatment Notes Treatment Clinical Notes Oct, Coronary artery disease, angina presence unspecified, unspecified vessel or lesion type, unspecified whether robinson or transplanted heart (ICD-10 - I25.10) CAD remains stable and pt remains asymptomatic with present med management. Regular 3M. Follow-up recommended. Criteria for NTG use and ER evaluation carefulliy reviewed. Keep regular superintendent meter tests evaluations. We talked specifically about comorbidities associated with CAD. We reviewed the natural history of intermediate CAD. Oct, Essential hypertension (ICD-10 - I10) Patient continues to do well with management of hypertension.Reviewe d importance of nonpharmacologic treatment measures including excercise, diet, weight control. Currently meets AHA criteria for controlled hypertension. Criteria for medication adjustments reviewed. Taking all meds as directed reinforced. Oct, Afib (ICD-10 - I48.91) Patients atrial fibrillation is curently stable at this time. Patient denies cardiac symptoms at today's visit. Will continue to monitor. F/U with Dr. Robles as scheduled Oct, Generalized anxiety disorder (ICD-10 - F41.1) Patient encouraged to manage symptoms by setting goals & maintaining a routine. Exercise regularly, healthy eating habits and getting plenty of rest. We will continue to monitor without medication at this time. Oct, Gastroesophageal reflux disease, unspecified whether esophagitis present (ICD-10 - K21.9) GERD remains stable. Importance of meal timing and content reviewed. Avoid over eating and late meals. Pay attention to changes in appetite, weight, and bowel functions. Oct, Asthma (ICD-10 - J45.909) Asthma symptoms remain unchanged at this time. Patient denies any recent flare ups. He should continues to pace himself. Take medication as directed and we will continue to monitor. Oct, STACIA (obstructive sleep apnea) (ICD-10 - G47.33) Stable, well controlled with the use of CPAP. No daytime sedation or falling asleep while driving Oct, Hyperlipidemia (ICD-10 - E78.5) Patient encouraged to monitor diet and exercise regularly & remain active as tolerated. Continue with prescribed medications. We will continue to monitor with routine lab work. 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 Patient to continue with above medication and we will continue to monitor through routine blood work, complete as ordered Oct, Obesity (ICD-10 - E66.9) Long discussion. He is morbidly obese, and clearly understands the cardiovascular risk this creates.......As u\sual, weight loss recommended, with portion control and exercise. Oct, Hematoma of leg (ICD-10 - S80.10XA) Referral sent for consult [facility] Other 05-19-2022 Evaluation note* Encounter Date Diagnosis Assessment Notes Treatment Notes Treatment Clinical Notes August, Encounter for immunization (ICD-10 - Z23) Patient presents for COVID-19 vaccination BOOSTER. Pre-screening form answers evaluated with patient. Patient denies current illness or allergic reaction to component of COVID-19 vaccine. Patient provided with current copy of EUA. [facility] Other 04-18-2022 Evaluation note* Encounter Date Diagnosis Assessment Notes Treatment Notes Treatment Clinical Notes Jul, Hematoma (ICD-10 - T14.8XXA) Patient has a large hematoma involving the lower aspect of the lateral right lower extremity secondary to a simple fall. Has been x-rayed, no evidence of tib-fib fracture or any ankle fracture as well. He feels the swelling is progressing with the expected discoloration changes. He denies any calf tenderness. We had a long discussion about theInjury and management. There is no indication of a DVT clinically. The good news, is that he is already on a blood thinner for his atrial fib. I do not think we would manage things differently. Nonetheless, we will need to keep a close eye in this to be sure that it resolves. Should he develop any increased swelling in the right calf or any shortness of breath, he will go to the emergency room for evaluation. Jul, CAD (coronary artery disease) (ICD-10 - I25.10) Asymptomatic coronary artery disease. On appropriate medications, has regularly scheduled follow-up with his superintendent meter tests.Continu e Isordil 60 mg p.o. daily. Has not needed nitroglycerin tablets for any chest discomfort. Jul, HTN (hypertension) (ICD-10 - I10) Blood pressure controlled. We will continue Lotrel 10-21 p.o. daily, Inderal LA 60 mg 1 daily, and HCTZ 25 mg p.o. daily. Jul, Obesity (ICD-10 - E66.9) The patient is morbidly obese. This potentially will have a very negative impact on his comorbid cardiovascular issues. He understands the need for exercise diet and weight reduction. He must get serious about weight loss. Failing to do so, will have very negative consequences on his overall health and wellness. Jul, Afib (ICD-10 - I48.91) Atrial fib, paroxysmal. Doing well with medical management which includes Xarelto 20 mg daily, and amiodarone 200 mg p.o. daily. 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 Currently on levothyroxine 112 mcg p.o. daily. [facility] Other 03-28-2022 Evaluation note* Encounter Date Diagnosis Assessment Notes Treatment Notes Treatment Clinical Notes Jun, HTN (hypertension) (ICD-10 - I10) Patients blood pressure is well controlled at this time. Denies cardiac symptoms at todays visit. We will continue to monitor. Continue above medications. Jun, CAD (coronary artery disease) (ICD-10 - I25.10) Denies no new cardiac symptoms. Shows no signs or symptoms or poor control. Patient to continue with above medication and we will continue to monitor. Advised to pay attention to body and symptoms. Any developing patterns. Stay well hydrated. Continue to follow up with Cardiology as directed for management. Jun, Hyperlipidemia (ICD-10 - E78.5) Patient is to increase exercise and continue to watch diet. We will continue to monitor with routine blood work. Patient is to continue above medication. Jun, Generalized anxiety disorder (ICD-10 - F41.1) Encouraged to stay active and remain involved. Jun, Obesity (ICD-10 - E66.9) He is to manage with portion control and exercise. Jun, STACIA (obstructive sleep apnea) (ICD-10 - G47.33) Continues to use machine nightly. Jun, Afib (ICD-10 - I48.91) Well controlled with medication. Jun, GERD (gastroesophageal reflux disease) (ICD-10 - K21.9) Patients reflux symptoms remain unchanged at this time. We Discussed the importance of meal content and timing. Reviewed the importance to avoid overeating and eating late in evening. Take medication as directed and we will continue to monitor. 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 I will check level in 3 months. [facility] Other 02-18-2022 Evaluation note* Encounter Date Diagnosis Assessment Notes Treatment Notes Treatment Clinical Notes May, Hypothyroidism due t o medication (ICD-10 - E03.2) [facility] Other 12-16-2021 Evaluation note* Encounter Date Diagnosis Assessment Notes Treatment Notes Treatment Clinical Notes Mar, HTN (hypertension) (ICD-10 - I10) Blood pressure is currently well controlled with the above captioned medications. He remained stable and clinically asymptomatic. Specifically, no orthostatic symptoms, lightheadedness, or dizziness.Looking forward to skilled nursing at the end of this year. Mar, Generalized anxiety disorder (ICD-10 - F41.1) Minimal symptoms of anxiety. Managing this nonpharmacologicall y. Exercise and diet. Continues to focus on exercise and weight loss. Mar, Afib (ICD-10 - I48.91) Clinically remains in sinus rhythm with no recent exacerbations and/or flares of his atrial fib. Medications will continue as ordered by his superintendent meter tests, including Xarelto and amiodarone as captioned above. Mar, GERD (gastroesophageal reflux disease) (ICD-10 - K21.9) Patient has remained asymptomatic of his GERD. He takes a PPI on a daily basis with complete control of all his symptoms of reflux. 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 He was placed on thyroid medication at his last office visit because of a moderately elevated TSH. Both the patient and his feel he is doing well with the replacement therapy. Accordingly, will continue as ordered, and order follow-up laboratory studies in April when he returns from [place]. Mar, Asthma (ICD-10 - J45.909) [facility] Other 11-19-2021 Evaluation note* Encounter Date Diagnosis Assessment Notes Treatment Notes Treatment Clinical Notes Feb, Encounter for immunization (ICD-10 - Z23) Patient presents for COVID-19 vaccination BOOSTER. Pre-screening form answers evaluated with patient. Patient denies current illness or allergic reaction to component of COVID-19 vaccine. Patient provided with current copy of EUA. [facility] Other 08-30-2021 Evaluation note* Encounter Date Diagnosis Assessment Notes Treatment Notes Treatment Clinical Notes Nov, Hypothyroidism due t o medication (ICD-10 - E03.2) Clearly, both biochemically and symptomatically, the patient is hypothyroid. Some of this might be primary hypothyroidism, but it also could be an effect of the amiodarone. Nonetheless, needs to be addressed. Long discussion. We will begin a low-dose of medication with follow-up in about 6 weeks time. Will need repeat studies.Rx printed and given to pt Nov, Coronary artery disease, angina presence unspecified, unspecified vessel or lesion type, unspecified whether robinson or transplanted heart (ICD-10 - I25.10) CAD remains stable and pt remains asymptomatic with present med management. We will continue Isordil 60 mg once daily,We will also continue Vytorin 1080 once daily.Regular 3M. Follow-up recommended. Criteria for NTG use and ER evaluation carefulliy reviewed. Keep regular superintendent meter tests evaluations. We talked specifically about comorbidities associated with CAD. We reviewed the natural history of intermediate CAD. Nov, Hyperlipidemia (ICD-10 - E78.5) Doing well. Labs stable. Continue Vytorin 1080 once daily. Nov, Essential hypertension (ICD-10 - I10) Patient continues to do well with management of hypertension.We will continue Inderal LA 60 mg daily, HCTZ 25 mg daily, Lotrel [id number] once daily.Reviewed importance of nonpharmacologic treatment measures including excercise, diet, weight control. Currently meets AHA criteria for controlled hypertension. Criteria for medication adjustments reviewed. Taking all meds as directed reinforced. Nov, Gastroesophageal reflux disease, unspecified whether esophagitis present (ICD-10 - K21.9) GERD remains stable.Continue omeprazole 40 mg daily.mportance of meal timing and content reviewed. Avoid over eating and late meals. Pay attention to changes in appetite, weight, and bowel functions. [facility] Other 12-02-2020 NoteHistory of Present Illness: HPI: SHALOM KOJO Mayer is a 64 year old Male admitted to [facility] for antiarrhythmic drug load with amiodarone per Dr Robles on 03/21/20. At that time patient was initiated on amiodarone. He underwent a Covid-19 test which was found to be positive. Patient was placed in isolation at that time. He was found to be asymptomatic and discharged to home the following day with recommendations to quarantine. He was in atrial fibrillation with a controlled ventricular rate at that time and instructed to return for cardioversion in 4 week. He has a past medical history significant for multivessel CAD, Inferior Wall AK, s/p remote PCI, HTN, HLD, Morbid Obesity, STACIA using CPAP, and paroxysmal atrial fibrillation diagnosed back in 2017 during a routine stress test. Patient had a DCC at that time which converted him to a NSR and he had no issues until 10/2019 when he came in for pre-op clearance and his ECG showed atrial fibrillation. A DCC attempt was made in October per Dr. Lassiter with no success. Patient subsequently came to see Dr. Damon for further evaluation of the atrial fibrillation as Dr. Damon did his PCI after his AK in 2004. After further discussion it was recommended patient should undergo antiarrhythmic drug loading for treatment of the atrial fibrillation under the care of Dr. Robles/EP service. At this time patient has undergone his quarantine for Covid -19, he denies palpitations, dizziness, lightheadedness, chest pain, or shortness of breath. He has been taking all medications as prescribed and ready to undergo his cardioversion. Comorbidities: Comorbid Conditionsatrial fibrillation Type of Atrial FibrillationPersistent Past Medical/Surgical History: Medical History: Long-term use of high-risk medication: GERD (gastroesophageal reflux disease): History of myocardial infarction: Morbid obesity: Atrial fibrillation: HLD (hyperlipidemia): HTN (hypertension): CAD (coronary artery disease): Family History: CAD: yes Father Family History: AK - Father Social History: Social History: Smoking Statusnever smoker Alcohol Useoccasionally Drug Usedenies Allergies: No Known Allergies: Medications Prior to Admission: amlodipine-benazepril 10 mg-20 mg oral capsule: 1 cap(s) orally once a day hydroCHLOROthiazide 25 mg oral tablet: 1 tab(s) orally once a day isosorbide mononitrate 60 mg oral tablet, extended release: 1 tab(s) orally once a day (in the morning) esomeprazole 40 mg oral delayed release capsule: 1 cap(s) orally once a day nitroglycerin 0.4 mg sublingual tablet: 1 tab(s) sublingual every 5 minutes, up to 3 doses As Needed - for chest pain propranolol 60 mg oral capsule, extended release: 1 cap(s) orally once a day triamcinolone 0.1% topical cream: Apply topically to groin 2 times a day, As Needed Xarelto 20 mg oral tablet: 1 tab(s) orally once a day Fish Oil 1000 mg oral capsule: 1 cap(s) orally once a day ezetimibe-simvastatin 10 mg-20 mg oral tablet: 1 tab(s) orally once a day amiodarone 400 mg oral tablet: 1 tab(s) orally once a day. Review of Systems: All Other Systems: All other systems reviewed and are negative Objective: Physical Exam by System: Constitutional: Well developed, obese, awake/alert/oriented x3, no distress, alert and cooperative Eyes: clear sclera ENMT: mucous membranes moist, no apparent injury, no lesions seen Head/Neck: Neck supple, no apparent injury, No JVD, trachea midline, no bruits Respiratory/Thorax: Patent airways, CTAB, normal breath sounds with good chest expansion, thorax symmetric Cardiovascular: irregular rate and rhythm, no murmurs, 2+ equal pulses of the extremities, normal S 1and S 2. EKG shows atrial fibrillation HR 55 and QTc 450ms Gastrointestinal: Nondistended, large, non-tender, no masses palpable, no organomegaly, +BS Musculoskeletal: ROM intact, no joint swelling, normal strength Extremities: normal extremities, no cyanosis, contusions or wounds, no clubbing, no edema Neurological: alert and oriented x3, intact senses and motor response, normal strength Psychological: Appropriate mood and behavior Skin: Warm and dry, no lesions, no rashes Medications: Medications: Continuous Medications 1. Sodium Chloride 0.9% Infusion: 1000 mL IntraVenous Scheduled Medications 1. Mupirocin 2%: 1 application(s) Each Nostril Once 2. Vancomycin 1 gram IVPB/ Premixed Soln 200 mL: 1 gram(s) IntraVenous Piggyback Once PRN Medications No PRN medications are active Recent Lab Results: Results: I have reviewed these laboratory results: Coronavirus 2019, Screen Asymptomatic 19-Mar-2020 09:03:00 ResultValue Fluid Source Nasal, Nasopharyngeal Coronavirus 2019,PCR NOT DETECTED Reference Range: Not Detected . (more content not included)...[facility]12-02-2020 NoteHistory & Physical Reviewed: I have reviewed the History and Physical dated: 21-Mar-2020 History and Physical reviewed and relevant findings noted. Patient examined to review pertinent physical findings.: No significant changes Home Medications Reviewed: no changes noted Allergies Reviewed: no changes noted Airway/Sedation Assessment: Assmentment by AnesthesiaSee anesthesia airway/sedation assessment. Emotional Statuscalm Neurologicalert & oriented x 3 Respiratoryclear to auscultation Cardiovascularirregular GI/GUsoft, nontender Pulsespresent: Pedal Left, Pedal Right, Radial Left, Radial Right Mouth Opening OKyes Neck Flexibility OKyes Loose Teethno Oropharyngeal ClassificationClass II ASA PS ClassificationASA III ERAS (Enhanced Recovery After Surgery): ERAS Patient: no Consent: COVID-19 Consent: COVID-19 Risk ConsentSurgeon has reviewed gonzalez risks related to the risk of wagner COVID-19 and if they contract COVID-19 what the risks are. Signatures/Attestation: Note Completion: Attending Provider Inpatient Certification StatementObservation patient/other outpatient visits Electronic Signatures: Ilene Robles) (Signed 21-Mar-2020 10:37) Authored: History & Physical Reviewed, Airway/Sedation, ERAS, Consent, Note Completion Last Updated: 21-Mar-2020 10:37 by Ilene Robles)[facility] 02-15-2020 NoteSend Summary: Discharge Summary Providers: Provider RoleProvider Name Ilene Magaña Thomas B AttendingQuan, Kara Note Recipients: Ilene Robles MD - [id number] [preferred] Angie Moran MD - [id number] [] Discharge: Summary: Admission Date: .14-Feb-2020 07:05:00 Discharge Date: 15-Feb-2020 Attending Physician at Discharge: Ilene Robles Admission Reason: Antiarrhythmic Drug Loading(1) Final Discharge Diagnoses: Persistent Atrial Fibrillation Procedures: none Condition at Discharge: Satisfactory Disposition at Discharge: .Home Vital Signs: T PRBPSpO2 [id number]/7392% Date/Time02/14 7: 7: 6: 7: 7:50 Range(36.4C - 37.2C ) (43 - 61 ) (16 - 18 ) (110 - 134 )/ (51 - 76 ) (92% - 96% ) Highest temp of 37.2 C was recorded at 02/13 16:00 Date: Weight/Scale Type:Height: 14-Feb-2020 07:79697.1 kg / .6 cm Hospital Course: Patient was admitted electively on 02/14/2020 for antiarrhythmic drug loading under the care of Dr. Robles due to persistent atrial fibrillation with complaints of palpitations over the past several months. Routine blood work and ECG were obtained on admission. He was noted to be in atrial fibrillation with rates 50-60's and a QTc of 452. His K+ was 3.5. He was subsequently initiated on Amiodarone 400mg PO BID and given a one time dose of 40mEq of KCl. He underwent baseline PFT's. It was discovered late afternoon that the patients preadmission Covid test was negative, however was from 01/28/2020. He was subsequently retested at bedside and the rapid test came back positive. Patient was immediately put in quarantine with contact and droplet precautions and was transferred to the 10S Covid unit. This AM, the patient is doing well. He is tolerating the Amiodarone well. His ECG this AM shows Atrial Fibrillation at a rate of 56 and a QTc of 459. Patient denies any symptoms related to Covid. He has been afebrile, denies headache, dizziness, loss of taste or smell, denies runny nose, sore throat or cough. Denies c/o N/V/D/C. Denies c/o weakness, fatigue or worsening lower extremity edema. The plan will be to discharge patient today on Amiodarone 400mg PO daily x 2 weeks, then decrease to 200mg once daily thereafter. He is scheduled to return on 03/21/2020 for elective DCC. Patient understands the plan of care. All questions answered. Discharge Information: and Continuing Care: Lab Results - Pending: None Radiology Results - Pending: None Discharge Instructions: . Follow Up Appointments: Follow-Up Appointment 01: Physician/Dept/Service: Dr. Robles Reason for Referral: Cardioversion Scheduled Date/Time: 21-Mar-2020 Location: [facility] (Manager Android for [facility] if have questions) Discharge Medications: Home Medication amlodipine-benazepril 10 mg-20 mg oral capsule - 1 cap(s) orally once a day hydroCHLOROthiazide 25 mg oral tablet - 1 tab(s) orally once a day isosorbide mononitrate 60 mg oral tablet, extended release - 1 tab(s) orally once a day (in the morning) esomeprazole 40 mg oral delayed release capsule - 1 cap(s) orally once a day Xarelto 20 mg oral tablet - 1 tab(s) orally once a day Fish Oil 1000 mg oral capsule - 1 cap(s) orally once a day ezetimibe-simvastatin 10 mg-80 mg oral tablet - 0.5 tab(s) orally once a day (at bedtime). Note: Decrease in dose due to interaction with amiodarone with the higher dose of simvastatin. amiodarone 400 mg oral tablet - 2 tab(s) orally once a day x 14 days, then decrease to 1 tab once daily thereafter. propranolol 60 mg oral capsule, extended release - 1 cap(s) orally once a day PRN Medication triamcinolone 0.1% topical cream - Apply topically to groin 2 times a day, As Needed nitroglycerin 0.4 mg sublingual tablet - 1 tab(s) sublingual every 5 minutes, up to 3 doses As Needed - for chest pain Signature/Cosignature/Attestation: Note Completion: I am a: Advanced Practice Provider Attending Only - Shared Visit with Advanced Practice ProviderThis is a shared visit. I have reviewed the Advanced Practice Providers encounter note, approve the Advanced Practice Providers documentation, and provide the following additional information from my personal encounter. Comments/ Additional Findings I have personally reviewed the data. In addition, The patient feels good today. COVID + last night He denies any symptoms of COVID. He denies any fever, myalgias, or cough. He is tolerating amiodarone. He denies any N/V. Personally reviewed ECG and tele Tele AF with controlled heart rate. No VT ECG AF with acceptable QTc The telehealth iPad is not functional. I called into the patient's room to discuss symptoms, review of data, AF, mechanisms of arrhyhtmia, and treatment plan. Greater than 50% visit spent to discuss arrhythmia, treatment options, and m (more content not included)...[facility]10-27-2020 NoteHistory of Present Illness: Admission Reason: Antiarrhythmic Drug Loading HPI: SHALOM KOJO Mayer is a 64 year old male with past medical history significant for multivessel CAD, Inferior Wall AK, s/p remote PCI, HTN, HLD, Morbid Obesity and paroxysmal atrial fibrillation diagnosed back in 2018 during a routine stress test. Patient had a DCC at that time which converted him to a NSR and he had no issues until 10/2019 when he came in for pre-op clearance and his ECG showed atrial fibrillation. A DCC attempt was made in October per Dr. Lassiter with no success. Patient subsequently came to see Dr. Damon for further evaluation of the atrial fibrillation as Dr. Damon did his PCI after his AK in 2004. After further discussion it was recommended patient should undergo antiarrhythmic drug loading for treatment of the atrial fibrillation under the care of Dr. Robles/EP service. Patient is currently in atrial fibrillation at a rate of 62 and a QTc of 452. He is currently maintained on Propanolol HCl ER 60mg daily and anticoagulated with Xarelto 20mg daily. He c/o having increased palpitations over the past several months. Denies c/o light headedness, dizziness, chest pain or SOB. Denies c/o recent illlness, fevers, chills, sweats or exposure to Covid-19. Denies c/o N/V/D/C. Denies c/o lower extremity weakness. He does c/o lower extremity swelling. Comorbidities: Comorbid Conditionsatrial fibrillation, hypertension Type of Atrial FibrillationPersistent Past Medical/Surgical History: Medical History: GERD (gastroesophageal reflux disease): History of myocardial infarction: Morbid obesity: Atrial fibrillation: HLD (hyperlipidemia): HTN (hypertension): CAD (coronary artery disease): Family History: CAD: yes Father Family History: AK - Father Social History: Social History: Smoking Statusnever smoker Alcohol Useoccasionally Drug Usedenies Allergies: No Known Allergies: Medications Prior to Admission: amlodipine-benazepril 10 mg-20 mg oral capsule: 1 cap(s) orally once a day ezetimibe-simvastatin 10 mg-80 mg oral tablet: 1 tab(s) orally once a day (at bedtime) hydroCHLOROthiazide 25 mg oral tablet: 1 tab(s) orally once a day isosorbide mononitrate 60 mg oral tablet, extended release: 1 tab(s) orally once a day (in the morning) esomeprazole 40 mg oral delayed release capsule: 1 cap(s) orally once a day nitroglycerin 0.4 mg sublingual tablet: 1 tab(s) sublingual every 5 minutes, up to 3 doses As Needed - for chest pain propranolol 60 mg oral capsule, extended release: 1 cap(s) orally once a day triamcinolone 0.1% topical cream: Apply topically to groin 2 times a day, As Needed Xarelto 20 mg oral tablet: 1 tab(s) orally once a day Fish Oil 1000 mg oral capsule: 1 cap(s) orally once a day. Review of Systems: Constitutional: NEGATIVE: Fever, Chills, Anorexia, Weight Loss, Malaise Eyes: NEGATIVE: Blurry Vision, Drainage, Diploplia, Redness, Vision Loss/ Change ENMT: NEGATIVE: Nasal Discharge, Nasal Congestion, Ear Pain, Mouth Pain, Throat Pain Respiratory: NEGATIVE: Dry Cough, Productive Cough, Hemoptysis, Wheezing, Shortness of Breath Cardiac: POSITIVE: Palpitations; NEGATIVE: Chest Pain, Dyspnea on Exertion, Orthopnea, Syncope Gastrointestinal: NEGATIVE: Nausea, Vomiting, Diarrhea, Constipation, Abdominal Pain Musculoskeletal: NEGATIVE: Decreased ROM, Pain, Swelling, Stiffness, Weakness Neurological: NEGATIVE: Dizziness, Confusion, Headache, Seizures, Syncope All Other Systems: All other systems reviewed and are negative Objective: Objective Information: T PRBPSpO2 [id number]% Date/Time02/13 8: 8: 8: 8: 8:17 Range(36C - 36C ) (64 - 64 ) (18 - 18 ) (113 - 113 )/ (73 - 73 ) (95% - 95% ) Weights 02/13 7:47: Weight in kg (Weight (kg)) 136.1 02/13 7:47: Weight in lbs ((lbs)) 300 02/13 7:47: BMI (kg/m2) (BMI (kg/m2)) 56.942 Physical Exam by System: Constitutional: Well developed, awake/alert/oriented x3, no distress, alert and cooperative Eyes: PERRL, EOMI, clear sclera ENMT: mucous membranes moist, no apparent injury, no lesions seen Head/Neck: Neck supple, no apparent injury, thyroid without mass or tenderness, No JVD, trachea midline, no bruits Respiratory/Thorax: Patent airways, CTAB, normal breath sounds with good chest expansion, thorax symmetric Cardiovascular: Iregularly irregular, rate and rhythm, no murmurs, 2+ equal pulses of the extremities, normal S 1and S 2 Gastrointestinal: Nondistended, soft, non-tender, no rebound tenderness or guarding, no masses palpable, no organomegaly, +BS, no bruits, obese Genitourinary: Deferred Musculoskeletal: ROM intact, no joint swelling, normal strength Extremities: normal extremities, 2+ LE edema, no contusions or wounds, no clubbing Neurological: alert and oriented x3, intact senses, motor, response and (more content not included)...[facility] note[facility] Information [facility] Other Evaluation noteNo assessment information available [facility] Work Phone: Evaluation note* Diagnosis CAD S/P percutaneous coronary angioplasty History of AK (myocardial infarction) Old myocardial infarction Primary hypertension Unspecified essential hypertension Mixed hyperlipidemia Longstanding persistent atrial fibrillation (CMS/HCC) High risk medication use Anticoagulated Encounter for long-term (current) use of anticoagulants Morbid obesity with BMI of 40.0-44.9, adult (CMS/HCC) Never smoked tobacco documented in this encounter [facility] Work Phone: Evaluation note* Diagnosis Permanent atrial fibrillation (CMS/HCC) Atrial fibrillation documented in this encounter [facility] Work Phone: Evaluation note* Diagnosis CAD S/P percutaneous coronary angioplasty History of AK (myocardial infarction) Old myocardial infarction Primary hypertension Unspecified essential hypertension Mixed hyperlipidemia Longstanding persistent atrial fibrillation (CMS/HCC) Morbid obesity with BMI of 40.0-44.9, adult (CMS/HCC) Never smoked tobacco documented in this encounter [facility] Work Phone: Evaluation note* Diagnosis Longstanding persistent atrial fibrillation (Multi)- Primary Bradycardia Other specified cardiac dysrhythmias Primary hypertension Unspecified essential hypertension History of AK (myocardial infarction) Old myocardial infarction Mixed hyperlipidemia CAD S/P percutaneous coronary angioplasty Never smoked tobacco Morbid obesity with BMI of 40.0-44.9, adult (Multi) Anticoagulated Encounter for long-term (current) use of anticoagulants Encounter for medication review and counseling Encounter to discuss treatment options documented in this encounter [facility] Work Phone: Evaluation note* Diagnosis Onset Date Resolution Status CAD (coronary artery disease) acute GERD (gastroesophageal reflux disease) acute Hypertension acute Hypothyroidism due to medication acute Sleep apnea acute Bilateral primary osteoarthritis of knee acute [facility] Work Phone: Evaluation note* Diagnosis Onset Date Resolution Status Bilateral primary osteoarthritis of knee acute [facility] Work Phone: Evaluation note* Diagnosis Onset Date Resolution Status Bilateral primary osteoarthritis of knee acute BMI 40.0-44.9, adult acute [facility] Work Phone: [facility] general Narrative - Reported* Type Description Date Medical History hypertension Medical History hyperlipidemia Medical History obesity Medical History cad Medical History Sleep apnea Medical History Vitamin D deficiency Medical History Osteoarthritis Medical History Asthma Surgical History appendectomy Surgical History inguinal hernia repair Surgical History Knee-Rt Arthoscopy 03/2014 Surgical History Left Shoulder Arthroscopy 2014 Surgical History knee meniscus repair 10/2019 Hospitalization History heart attack 2004 Hospitalization History see above [facility] Other [facility] general Narrative - Reported* Type Description Date Medical History hypertension Medical History hyperlipidemia Medical History obesity Medical History cad Medical History Sleep apnea Medical History Vitamin D deficiency Medical History Osteoarthritis Medical History Asthma Surgical History appendectomy Surgical History inguinal hernia repair Surgical History Knee-Rt Arthoscopy 03/2014 Surgical History Left Shoulder Arthroscopy 2014 Surgical History knee meniscus repair 10/2019 Surgical History LEFT LEG WOUND I &D 12/2021 Hospitalization History heart attack 2004 Hospitalization History see above [facility] Other History of Present illness Narrative* He is here for electrophysiology evaluation * The patient and are to discuss atrial fibrillation. He is done very well with antiarrhythmic medication suppression of atrial fibrillation anticoagulation. * With decreased amiodarone dose, he feels better. He still notices malaise and fatigue. He inquires about discontinuing amiodarone. * The patient denies any lightheadedness, near syncope, syncope, palpitation, chest discomfort, dyspnea, RILEY with mild exertion, PND, or edema. * Per geographical convenience, he continues to request to have cardiology and EP follow-up in the [place] office. * He has upcoming blood work and pulmonary function test at [facility] later this year. * See ROS, PMH, FMH, and surgical history for details. * Personal review of ECG and cardiac data reviewed * outside records: * ECG February 2021 * Office visit Wanda Becerra NP February 2021 * PFTs April 2020. DLCO 69%. * Office visit with Kate Hairston March 2020 * Procedure note March 2020 * Echocardiogram January 2020. Ejection fraction 6065%. Biatrial enlargement. Left atrial size 5.2 cm. Mild to moderate MR, moderate TR, RV systolic pressure 52 mmHg * Holter monitor July 2020. No atrial fibrillation. No significant bradycardia. * ECG: Today.. Sinus bradycardia. Right axis deviation. Corrected QT interval 460 ms. * Imp / Plan * Persistent atrial fibrillation chronic. Underlying substrate of pulmonary hypertension, valvular heart disease and left atrial enlargement. Chronic. Stable, Status post cardioversion March 2020 . Reviewed medications. Continue amiodarone 200 mg daily. Given bradycardia, will change propranolol extended release to low-dose metoprolol succinate. He will notify us with how he is feeling no changein medication. Prior to next visit we will obtain 30- day monitoring to assess for recurrence of atrial fibrillation. Discussed treatment options for atrial fibrillation including possible cryoablation in the past. He opted for conservative medications only. * Covid recovered. Covid positive screen when patient was being admitted for amiodarone drug loading.January 2020. * High risk medication -amiodarone. Chronic. Stable. Monitor EKG twice yearly. * [id number] 2 High risk medication-Xarelto. Chronic. Stable. Continue long-term * Asymptomatic sinus bradycardia. Chronic. Stable. Reviewed Holter monitor with patient in the past. Reviewed medications. Change to metoprolol as noted above * Coronary artery disease -chronic. Stable. Status post multivessel PCI stent.- 2004 PCI/MAC proximal circumflex, PCI/MAC RCA. Last catheterization 2007 with mid LAD 30%, circumflex negative, RCA 20%. Subsequent perfusion study with probable artifact, no clear ischemia in 2018. Reviewed medications. Change to metoprolol succinate as noted above. Prescription sent. Follows up with Dr. Damon. * Normal LV function and mild valvular heart disease by January 2020 echo LVEF 60 to 65%, 1-2+ MR, left atrium mildly dilated . Follows with cardiology * Hyperlipidemia. Chronic. Stable. Reviewed medications. On statin. Blood work followed by PCP * Obstructive sleep apnea. Chronic. Stable. On CPAP with pressure support 13 per patient report. Discussed association of sleep apnea and atrial fibrillation with patient and . Continue patient's follow-up with PCP * Hypothyroidism. Chronic and stable per report. Follow-up with PCP and endocrinology * Overweight * AHA recommendations for exercise, diet, and behavioral modification reviewed with pt. * The patient and I discussed the mechanism of arrhythmia, atrial fibrillation, amiodarone, 30-day monitor, previous echocardiogram, ECG, indications for and types of medications, discussion if and what medication refills needed, treatment options, risks, benefits, and imponderables. [place] [employer] sociation lifestyle changes and behavioral modification discussed. All questions answered in detail. Counseling over 50% visit regarding above. Patient appreciative of care. -[facility] 320 DO Work Phone: History of Present illness Narrative* He is here for electrophysiology followup * The patient and both here to discuss atrial fibrillation. * The patient denies any lightheadedness, near syncope, syncope, palpitation, chest discomfort, dyspnea, RILEY with mild exertion, PND, or edema. * He request to stop taking amiodarone because of potential side effects. * See ROS, PMH, FMH, and surgical history for details. * Personal review of ECG and cardiac data reviewed * outside records: * OV with me October 2021 * ECG October 2021 * ECG February 2021 * Office visit Wanda Becerra NP February 2021 * PFTs April 2020. DLCO 69%. * Office visit with Kate Hairston March 2020 * Procedure note March 2020 * Echocardiogram January 2020. Ejection fraction 6065%. Biatrial enlargement. Left atrial size 5.2 cm. Mild to moderate MR, moderate TR, RV systolic pressure 52 mmHg * Holter monitor July 2020. No atrial fibrillation. No significant bradycardia. * ECG: Today. Sinus bradycardia. First-degree AV block. Incomplete right bundle branch block. Poor R wave progression. Right axis deviation. Corrected QT interval 450 ms. * Imp / Plan * Persistent atrial fibrillation chronic. Underlying substrate of pulmonary hypertension, valvular heart disease and left atrial enlargement. Chronic. Stable, Status post cardioversion March 2020 . Reviewed medications. We will discontinue amiodarone given patient is concerned about side effects and no recurrence of his arrhythmias. Behavior modification reinforced. Add magnesium oxide. Utilize metoprolol succinate for rate control if atrial fibrillation were to recur. Anticoagulated with Xarelto. Prescription sent * Covid recovered. January 2020. * [id number] 2 High risk medication-Xarelto. Chronic. Stable. Continue long-term * Asymptomatic sinus bradycardia. Chronic. Stable. Reviewed meds. Okay to continue metoprolol low-dose. * Coronary artery disease -chronic. Stable. Status post multivessel PCI stent.- 2004 PCI/MAC proximal circumflex, PCI/MAC RCA. Last catheterization 2007 with mid LAD 30%, circumflex negative, RCA 20%. Subsequent perfusion study with probable artifact, no clear ischemia in 2018. Reviewed medications. Continue medications. Discussed refills. * Normal LV function and mild valvular heart disease by January 2020 echo LVEF 60 to 65%, mild to moderate MR, left atrium mildly dilated . Follows with cardiology * Hyperlipidemia. Chronic. Stable. Reviewed medications. On statin. Reviewed blood work. * Obstructive sleep apnea. Chronic. Stable. On CPAP with pressure support 13 per patient report. Reviewed association of sleep apnea and atrial fibrillation with patient and . * Hypothyroidism. Chronic and stable per report. Recommend follow-up with endocrinology * Overweight * AHA recommendations for exercise, diet, and behavioral modification reviewed with pt. * The patient and I discussed the mechanism of arrhythmia, atrial fibrillation, ECG, sinus bradycardia, amiodarone versus no amiodarone, metoprolol fact, magnesium oxide, anticoagulation, ECG, indications for and types of medications, discussion if and what medication refills needed, treatment options, risks, benefits, and imponderables. [place] [employer] lifestyle changes and behavioral modification discussed. All questions answered in detail. Counseling over 50% visit regarding above. Patient appreciative of care. [facility] 320 DO Work Phone: History of Present illness NarrativePatient is here for follow-up. Doing much better after stopping amlodipine his leg swelling markedly improved. He is doing well his blood pressure is adequately controlled did not have any symptoms of syncope or presyncope. He is continue to be on the lisinopril. I discussed with the patient in length that we will continue medication he can use amlodipine 5 mg as needed for blood pressure above 150 other than that he will continue current medication. He does have sleep apnea been using CPAP.Will call for any problem and follow-up in [address] [place] [address] 305 DO Work Phone: History of Present illness NarrativePatient is here for follow-up. His blood pressure was increasing after cutting back his amlodipine and lisinopril. His leg swelling markedly improved. I discussed with the patient in length that before we increase amlodipine back and cause more leg swelling we will increase lisinopril to 20 mg daily. He will be checking blood pressure report back to us. Based on that further recommendation will be [facility] DO Work Phone: History of Present illness NarrativePatient is here for follow-up. His blood pressure was increasing after cutting back his amlodipine and lisinopril. His leg swelling markedly improved. I discussed with the patient in length that before we increase amlodipine back and cause more leg swelling we will increase lisinopril to 20 mg daily. He will be checking blood pressure report back to us. Based on that further recommendation will be [facility] DO Work Phone: Reason for visit NarrativeReferral update - vascular surgeryBenson Leddar[employer] Other Summary Purpose Family History No Family History Records FoundUnknown Family Member Name Dates Details Family history of coronary a rtery disease: Father(V17.3, Z82.49) Status:Active Family history of myocardial infarction: Father(V17.3, Z82.49) Status:Active No pertinent family history: Mother, Sibling(V49.89, Z78.9) Status:Active Unknown Family Member Name Dates Details Family history of coronary a rtery disease: Father(V17.3, Z82.49) Status:Active Family history of myocardial infarction: Father(V17.3, Z82.49) Status:Active No pertinent family history: Mother, Sibling(V49.89, Z78.9) Status:Active Unknown Family Member Name Dates Details Family history of coronary a rtery disease: Father(V17.3, Z82.49) Status:Active Family history of myocardial infarction: Father(V17.3, Z82.49) Status:Active No pertinent family history: Mother, Sibling(V49.89, Z78.9) Status:Active Unknown Family Member Name Dates Details Family history of coronary a rtery disease: Father(V17.3, Z82.49) Status:Active Family history of myocardial infarction: Father(V17.3, Z82.49) Status:Active No pertinent family history: Mother, Sibling(V49.89, Z78.9) Status:Active Unknown Family Member Name Dates Details Family history of coronary a rtery disease: Father(V17.3, Z82.49) Status:Active Family history of myocardial infarction: Father(V17.3, Z82.49) Status:Active No pertinent family history: Mother, Sibling(V49.89, Z78.9) Status:Active Unknown Family Member Name Dates Details Family history of coronary a rtery disease: Father(V17.3, Z82.49) Status:Active Family history of myocardial infarction: Father(V17.3, Z82.49) Status:Active No pertinent family history: Mother, Sibling(V49.89, Z78.9) Status:Active Unknown Family Member Name Dates Details Family history of coronary a rtery disease: Father(V17.3, Z82.49) Status:Active Family history of myocardial infarction: Father(V17.3, Z82.49) Status:Active No pertinent family history: Mother, Sibling(V49.89, Z78.9) Status:Active Unknown Family Member Name Dates Details Family history of coronary a rtery disease: Father(V17.3, Z82.49) Status:Active Family history of myocardial infarction: Father(V17.3, Z82.49) Status:Active No pertinent family history: Mother, Sibling(V49.89, Z78.9) Status:Active Relationship Condition Age at Onset Recorded Date/T kelvin father Hypertension Unknown Coronary artery disease Unknown Unknown Family Member Name Dates Details Family history of coronary a rtery disease: Father(V17.3, Z82.49) Status:Active Family history of myocardial infarction: Father(V17.3, Z82.49) Status:Active No pertinent family history: Mother, Sibling(V49.89, Z78.9) Status:Active Unknown Family Member Name Dates Details Family history of coronary a rtery disease: Father(V17.3, Z82.49) Status:Active Family history of myocardial infarction: Father(V17.3, Z82.49) Status:Active No pertinent family history: Mother, Sibling(V49.89, Z78.9) Status:Active Unknown Family Member Name Dates Details Family history of coronary a rtery disease: Father(V17.3, Z82.49) Status:Active Family history of myocardial infarction: Father(V17.3, Z82.49) Status:Active No pertinent family history: Mother, Sibling(V49.89, Z78.9) Status:Active Unknown Family Member Name Dates Details Family history of coronary a rtery disease: Father(V17.3, Z82.49) Status:Active Family history of myocardial infarction: Father(V17.3, Z82.49) Status:Active No pertinent family history: Mother, Sibling(V49.89, Z78.9) Status:Active Unknown Family Member Name Dates Details Family history of coronary a rtery disease: Father(V17.3, Z82.49) Status:Active Family history of myocardial infarction: Father(V17.3, Z82.49) Status:Active No pertinent family history: Mother, Sibling(V49.89, Z78.9) Status:Active Unknown Family Member Name Dates Details Family history of coronary a rtery disease: Father(V17.3, Z82.49) Status:Active Family history of myocardial infarction: Father(V17.3, Z82.49) Status:Active No pertinent family history: Mother, Sibling(V49.89, Z78.9) Status:Active Unknown Family Member Name Dates Details Family history of coronary a rtery disease: Father(V17.3, Z82.49) Status:Active Family history of myocardial infarction: Father(V17.3, Z82.49) Status:Active No pertinent family history: Mother, Sibling(V49.89, Z78.9) Status:Active Unknown Family Member Name Dates Details Family history of coronary a rtery disease: Father(V17.3, Z82.49) Status:Active Family history of myocardial infarction: Father(V17.3, Z82.49) Status:Active No pertinent family history: Mother, Sibling(V49.89, Z78.9) Status:Active Unknown Family Member Name Dates Details No pertinent family history: Mother, Sibling(V49.89, Z78.9) Status:Active Family history of myocardial infarction: Father(V17.3, Z82.49) Status:Active Family history of coronary a rtery disease: Father(V17.3, Z82.49) Status:Active Relationship Condition Age at Onset Recorded Date/T kelvin brother Hypertension Unknown Heart disease Unknown father Heart disease Unknown Unknown Hypertension Unknown Chronic mental illness Unknown Not Specified Alcohol abuse Unknown Relationship Condition Age at Onset Recorded Date/T kelvin brother Hypertension Unknown Heart disease Unknown father Heart disease Unknown Unknown Hypertension Unknown Chronic mental illness Unknown mother Alcohol abuse Unknown Advance Directives No Advanced Directives Records Found Advance Directive Response Recorded Date/ Time Advance Directives No August 09 7:44pm Advance Directive Response Recorded Date/ Time Advance Directives No August 09 6:44pm Chief Complaint Patient here for 6 month follow-up.* Patient here for 6 month follow-up. * Chief complaint: I have been doing fine. * History: The patient is a 65-year-old male who is followed for persistent atrial fibrillation controlled on amiodarone and anticoagulated with Xarelto. He is a high history of hypothyroidism on replacement therapy, coronary artery disease status post multivessel angioplasty with stent depl oyment with left heart catheterization dated March 27, 2008 revealing patent stents in the LAD, circumflex, and RCA with 30% mid LAD and 30 different 50% distal RCA stenosis and recommendation for medical management. Patient did undergo a Lexiscan stress test on November 29, 2020 which revealed an ejection fraction of 58% with no acute ischemic changes and moderate basal inferior lateral AK. He denies chest pain, palpitations, dizziness, lightheadedness, abdominal distention, lower extremity edema, or shortness of breath. * Physical exam: * Neurological: Alert and oriented X3. Cooperative and a pleasant demeanor. Normal power x4 extremities. * HEENT: Carotid upstrokes are 2+/4 bilaterally. No carotid bruits noted. No jugular vein distention noted at 90 degrees. * Cardiac: Regular S1 and S2. No S3, or S4. No murmurs or rubs noted. * Lungs: Clear to auscultation posterior laterally. Respirations are regular and non-labored. * Abdomen: Soft with active bowel sounds X4 quads. No hepatosplenomegaly noted. No palpable masses noted. * Extremities: Lower extremities are warm, dry, and intact. No lower extremity edema noted. DPs are 2+ bilaterally. * Labs and testing: Twelve-lead EKG reveals sinus bradycardia with first-degree AV block, the PA intervals 210 ms. Sinus rate is 48 bpm. QRS duration 96 ms, QT 526 ms, QTC 469 ms. Pulmonary function test dated April 27, 2020 revealed a DLCO to of 69% of predicted consistent with moderate obstructivedisease. Patient states he was informed his TSH was elevated and is under surveillance screening. 2D echocardiogram dated January 27, 2020 revealed an ejection fraction of 60 to 65%, biatrial enlargement with a left atrial size of 5.2 cm, 1-2+ MR, 2+ TI, and a right ventricular systolic pressure 52mmHg. * Clinical impressions: * 1. Persistent atrial fibrillation controlled on amiodarone, propranolol, and magnesium oxide and anticoagulated with Xarelto. * 2. Sinus node dysfunction. * 3. Coronary artery disease with left heart catheterization dated March 27, 2008 revealing patent stents in the LAD, circumflex, and RCA with 30% mid LAD and 30 to 50% distal RCA stenosis and recommendation for medical management. Lexiscan stress test dated November 29, 2020 revealing no acute ischemic changes with moderate basal inferolateral AK. * 4. Normal left ventricular function per 2D echo dated January 27, 2020. * 5. Valvular heart disease consisting of 1-2+ MR and 2+ TI. * 6. Chronic obstructive pulmonary disease with PFTs dated April 27, 2020 revealing a DLCO to of 69%and moderate obstructive disease. * 7. Pulmonary hypertension with right ventricular systolic pressure 52 mmHg. * 8. Dyslipidemia on statin. * 9. Hypertension controlled with a blood pressure today of 132/78. * 10. Morbid obesity with a BMI of 45.34. * Recommendations: * 1. Continue current medications as prescribed. * 2. The patient will be scheduled for pulmonary function testing in [place] for evaluation while onhigh risk medication. He will undergo a comprehensive metabolic profile and TSH as well. Further recommendations will be pending those results. * 3. Follow-up in office with Dr. Robles on August 30, 2021 at 9:20 AM as scheduled or sooner if needed. * 4. Discussed anatomy and physiology of the documented arrhythmia. Treatment options reviewed in detail. Instructed to take all current medications as prescribed. Limit caffeine and alcohol consumption to two beverages per day. Increase water intake to 64 ounces per day. Refrain from over the counter cold medications in tablet form. Treat symptoms: nasal spray for nasal congestion; zinc lozenges for sore throat; plain Robitussin or Delsym for cough; increase vitamin C intake. Exercise five or more days per week for 30 minutes per session per [place] [employer] guidelines. * Evaluation and note by Wanda Salinas CNP * Please excuse any errors in grammar or translation related to this dictation. Voice recognition software was utilized to prepare this document. Pt. here for 1 year f/uPt. here for scheduled f/uPt. here for scheduled f/u Patient here for 2 week follow-upPatient presents with c/o elevated blood pressure. States he has noticed since his medications werechanged at last visit that his blood pressure has been going up,he also c/o headachesPatient presents with c/o elevated blood pressure. States he has noticed since his medications werechanged at last visit that his blood pressure has been going up,he also c/o headaches Reason for Referral Specialty Diagnoses / Procedures Referred By Enzo dupree Referred To Contact Diagnoses Bradycardia Primary hypertension History of AK (myocardial infarction) Procedures ECG 12 lead (Clinic Performed) Ilene Robles MD [address] [facility] [place], [address] [address] Referral ID Status Reason Start Date Expiration Date V isits Requested Visits Authorized [id number] Authorized 08/14/2023 08/13/2024 1 1 Specialty Diagnoses / Procedures Referred By Enzo dupree Referred To Contact Diagnoses Permanent atrial fibrillation (CMS/HCC) Procedures ECG 12 lead (Ancillary Performed) Ilene Robles MD [address] [facility] [place], [address] [address] Referral ID Status Reason Start Date Expiration Date V isits Requested Visits Authorized [id number] Pending Review 02/06/2023 02/06/2024 1 1 Reason consult & treat Diagnosis 1 Hematoma of leg (S80 .10XA) Referral Organization [facility] Referring Provider First Name Angie Referring Provider Last Name Dean Referring Provider Specialty Internal Me dicine Referred Organization [facility] Referred Provider Juan Pina Referred Address [address] [place] [address],[place] [address],[place], [place],[address] Referred Provider Specialty Vascular Diana lavinia Referral Priority Routine General Notes Tonie Lima 10:08:36 AM >received today, sent P2P Chief Complaint and Reason for Visit Chief Complaint E03.2 Chief Complaint E03.2 Hematoma Right Leg with Wound Chief Complaint E03.2 i70.211 Hematoma Right Leg with Wound Hematoma Right Leg with Wound Chief Complaint E03.2 i70.211 Hematoma Right Leg with Wound Hematoma Right Leg with Wound booster Flu Shot Chief Complaint i70.211 Hematoma Right Leg with Wound Hematoma Right Leg with Wound booster vaccine Wound drainage Chief Complaint E03.2 E78.5 i83.813 Chief Complaint 1 Month Follow Up 3 month f/u Chief Complaint 3 month f/u CONSULT DR DEAN SALAMANCA KNEE PAIN M25.561 - Pain in right knee Reason for Visit CAD (coronary artery disease) GERD (gastroesophageal reflux disease) Hypertension Hypothyroidism due to medication Sleep apnea Bilateral primary osteoarthritis of knee Chief Complaint 3 MONTHS Reason for Visit Bilateral primary os teoarthritis of knee Chief Complaint 3 MONTHS 3-4 month follow up Reason for Visit Bilateral primary os teoarthritis of knee BMI 40.0-44.9, adult Chief Complaint 3 MONTHS 3-4 month follow up Z12.5 E03.2 I10 Reason for Visit Bilateral primary os teoarthritis of knee BMI 40.0-44.9, adult Additional Source Comments INFORMATION SOURCE (unrecogn ized section and content) DATE CREATED AUTHOR 10/13/2017 [facility] DATE CREATED AUTHOR AUTHOR'S ORGANIZ ATION 03/27/2018 [facility] DATE CREATED AUTHOR AUTHOR'S ORGANIZ ATION 12/12/2020 [facility] DATE CREATED AUTHOR AUTHOR'S ORGANIZ ATION 12/10/2022 [employer] DATE CREATED AUTHOR AUTHOR'S ORGANIZ ATION 03/04/2023 [facility] DATE CREATED AUTHOR AUTHOR'S ORGANIZ ATION 07/18/2023 [facility] DATE CREATED AUTHOR AUTHOR'S ORGANIZ ATION 08/16/2023 [facility] DATE CREATED AUTHOR AUTHOR'S ORGANIZ ATION 12/13/2023 [facility] DATE CREATED AUTHOR AUTHOR'S ORGANIZ ATION 12/15/2023 [facility] EPIC (unrecognized sect ion and content) No Status Records FoundNo Status Records FoundNo Status Records FoundNo Status Records FoundNo Status Records FoundNo Status Records FoundNo Status Records FoundNo Status Records Found REASON FOR VISIT (unrecogniz ed section and content) Reason Comments Follow-up 3 month Specialty Diagnoses / Procedures Referred By Contac t Referred To Contact Diagnoses Permanent atrial fibrillation (CMS/HCC) Procedures ECG 12 lead (Ancillary Performed) Ilene Robles MD [address] [facility] [place], [facility] [address] [place] [address] Referral ID Status Reason Start Date Expiration Date V isits Requested Visits Authorized [id number] Pending Review 02/06/2023 02/06/2024 1 1 Reason Comments Follow-up 4 month Reason Comments Follow-up 6 month Specialty Diagnoses / Procedures Referred By Contac t Referred To Contact Diagnoses Bradycardia Primary hypertension History of AK (myocardial infarction) Procedures ECG 12 lead (Clinic Performed) Ilene Robles MD [address] [facility] [place], [facility] [address] [place] [address] Referral ID Status Reason Start Date Expiration Date V isits Requested Visits Authorized [id number] Authorized 08/14/2023 08/13/2024 1 1 Care Teams (unrecognized sec tion and content) Team Status: Active Member Role Status Jarod Moran MD Primary Care Provider Active Team Status: Inactive Member Role Status Jarod Moran MD Primary Care Provider Active TRIPP Alcocer Attending Provider Active Team Status: Inactive Member Role Status Jarod Moran MD Primary Care Provider Active Juan Pina MD Attending Provider Active Team Status: Inactive Member Role Status Jarod Moran MD Primary Care Provider, [facility] Active Team Status: Active Member Role Status Jarod Moran MD Primary Care Provider Active Carissa Angeles RPH Attending Provider Active Team Status: Inactive Member Role Status Jarod Moran MD Primary Care Provider Active Anish Garcia MD Attending Provider Active Team Status: Inactive Member Role Status Jarod Moran MD Primary Care Provider Active Carissa Angeles RPH Attending Provider Active Team Status: Inactive Member Role Status Jarod Moran MD Primary Care Provider Active Kaylynn Lehman NP-C Attending Provider Active Custom Dressmaker Relationship Specialty Start Date End Date Angie Moran MD [address] [place] [id number] PCP - General 01/27/20 Custom Dressmaker Relationship Specialty Start Date End Date Angie Moran MD PCP - General 01/27/20 Custom Dressmaker Relationship Specialty Start Date End Date Angie Moran MD PCP - General 01/27/20 Bianka Damon MD [address] [facility] [place], [facility] [address] [place] [address] Special Education Teacher Cardiology 07/09/23 Team Status: Inactive Member Role Status Dates Angie Moran MD Attending Provider Active Start: April 23, 2023 End: April 23, 2023 Team Status: Inactive Member Role Status Dates Angie Moran MD Primary Care Prov ider, Attending Provider Active Start: July 20, 2023 End: July 20, 2023 Custom Dressmaker Relationship Specialty Start Date End Date Angie Moran MD PCP - General 01/27/20 Bianka Damon MD [address] [facility] [place], [facility] [address] [place] [address] Special Education Teacher Cardiology 07/09/23 Ilene Robles MD [address] [facility] [place], [facility] [address] [place] [address] [employer] Education Teacher Cardiology 08/07/23 Team Status: Inactive Member Role Status Dates Angie Moran MD Primary Care Provider Active Start: August 27, 2023 End: August 27, 2023 Ken Rocha II, MD Attending Provider Active Start: August 27, 2023 End: August 27, 2023 Team Status: Active Member Role Status Dates Angie Moran MD Primary Care Provider Active Start: August 27, 2023 Ken Rocha II, MD Attending Provider Active Start: August 27, 2023 Team Status: Inactive Member Role Status Dates Angie Moran MD Primary Care Provider Active Start: December 02, 2023 End: December 02, 2023 Ken Rocha II, MD Attending Provider Active Start: December 02, 2023 End: December 02, 2023 Team Status: Inactive Member Role Status Dates Angie Moran MD Primary Care Prov ider, Attending Provider Active Start: December 10, 2023 End: December 10, 2023 Team Status: Inactive Member Role Status Dates Angie Moran MD Primary Care Prov ider, Attending Provider Active Start: December 11, 2023 End: December 11, 2023 Goals (unrecognized section and content) Goals may be documented in a n alternate section FOR RECORDS PERTAINING TO PATIENTS WHO ARE OR HAVE BEEN ENROLLED IN A CHEMICAL DEPENDENCY/SUBSTANCEABUSE PROGRAM, SOME INFORMATION MAY BE OMITTED. This clinical summary was aggregated from multiple sources. Caution should be exercised in using it in the provision of clinical care. This summary normalizes information from multiple sources, and as a consequence, information in this document may materially change the coding, format and clinical context of patient data. In addition, data may be omitted in some cases. CLINICAL DECISIONS SHOULD BE BASED ON THE PRIMARY CLINICAL RECORDS. [employer] provides no warranty or guarantee of the accuracy or completeness of information in this document.
== END 2024-02-10 15:01 | disposition home or self-care (01) ==
LOC: SLEEP 02-11 13:53
PROVIDERS: PCP Psychiatry & Neurology Neurology; Visit Provider Psychiatry & Neurology Neurology
DX: G47.33 Obstructive sleep apnea (adult) (pediatric) (principal)
CPT/HCPCS: 95806